=== PATIENT | male | born 1955 | race Caucasian/White ===

== ENCOUNTER → 2017-08-13 11:12 | Outpatient (POV) | payer OTHER, SELFPAY | PROVIDERS: PCP Family Medicine; Visit Provider Dentist | DX: Z00.00 Encounter for general adult medical examination without abnormal findings (principal) ==

== ENCOUNTER → 2017-09-10 11:10 | Outpatient (POV) | payer OTHER, SELFPAY | PROVIDERS: PCP Internal Medicine Adolescent Medicine; Visit Provider Dentist | DX: Z00.00 Encounter for general adult medical examination without abnormal findings (principal) ==

== ENCOUNTER → 2018-01-28 16:17 | Outpatient (CLI) | payer OTHER, SELFPAY ==
--- NOTE | 2018-01-28 16:20 | XR_ITS ---
XR ankle RT min 3V HISTORY: ITS.REASON: pain ORDERING PHYSICIAN: Veronica Abdul DPM PATIENT AGE: 62 years Comparison: None FINDINGS: There are minimal hypertrophic changes at the tip of the lateral malleolus. No fracture or dislocation. There is slight decrease in the joint space anteriorly with minimal spurring of the distal tibia. The talar dome has an unremarkable appearance. IMPRESSION: Minimal osteoarthritic changes of the ankle joint
--- NOTE | 2018-01-28 16:20 | XR_ITS ---
XR ankle LT min 3V HISTORY: ITS.REASON: pain ORDERING PHYSICIAN: Veronica Abdul DPM PATIENT AGE: 62 years Comparison: None FINDINGS: There are no previous exams available for comparison. There has been prior ankle replacement with metallic prosthetic component at the distal tibia and along the talar dome. There are prominent hypertrophic changes at both the medial and lateral malleoli region with mild hypertrophic change along the age aspect of the talus and the posterior aspect of the talus. Osteoarthritic changes are present involving the subtalar joint anteriorly. Hypertrophic changes involve the posterior aspect of the talus with osteoarthritic changes of the posterior aspect of the posterior subtalar joint. IMPRESSION: Status post ankle replacement with bony hypertrophic change and osteoarthritic changes of the subtalar joint
--- NOTE | 2018-01-28 16:20 | XR_ITS ---
XR foot wt bearing RT 3V HISTORY: ITS.REASON: pain ORDERING PHYSICIAN: Veronica Abdul DPM PATIENT AGE: 62 years COMPARISON: None FINDINGS: There is minimal hallux valgus measuring 20 degrees with minimal hypertrophic change of the distal aspect of the first metatarsal. No fracture or dislocation. No other significant anomalies are evident. IMPRESSION: Mild hallux valgus
--- NOTE | 2018-01-28 16:20 | XR_ITS ---
XR foot wt bearing LT 3V HISTORY: ITS.REASON: pain ORDERING PHYSICIAN: Veronica Abdul DPM PATIENT AGE: 62 years FINDINGS: There is minimal hallux nondisplaced with first metatarsophalangeal angle of 19 degrees with minimal osteoarthritic change at the first MTP joint. On the oblique view there is calcification overlying the mid aspect of the calcaneus along the plantar surface and may be due to overlying osteophyte formation. There has been previous ankle joint replacement. No lytic or blastic change. No fracture or dislocation. There are osteoarthritic changes of the anterior subtalar joint and the posterior aspect of the posterior subtalar joint with bony hypertrophy of the posterior aspect of the talus. IMPRESSION: 1. Minimal hallux valgus minimal osteoarthritic change first metatarsophalangeal joint. 2. Calcification overlying the mid and plantar aspect of the calcaneus on the oblique view possibly related to dystrophic calcification within the soft tissues from prior surgery or osteophyte formation 3. Osteoarthritis of the subtalar joint
== END ==
PROVIDERS: PCP Internal Medicine Adolescent Medicine; Visit Provider Podiatrist
DX: M79.671 Pain in right foot (principal); M79.672 Pain in left foot; M25.572 Pain in left ankle and joints of left foot; M25.571 Pain in right ankle and joints of right foot
CPT/HCPCS: 73610; 73630

== ENCOUNTER → 2018-03-18 10:22 | Outpatient (CLI) | payer OTHER, SELFPAY ==
--- NOTE | 2018-03-18 11:07 | XR_ITS ---
XR knee RT 4V HISTORY: Knee pain ITS.REASON: 4 views weightbearing ORDERING PHYSICIAN: Juan Kendall MD PATIENT AGE: 62 years COMPARISON: None FINDINGS: Mild to moderate osteoarthritic changes are present at the medial compartment with decrease in the joint space and mild sclerosis and small osteophytes. Small linear calcific density is present along the superior patella on the lateral view and could be due to an old injury versus tendon calcification. No fracture or dislocation. IMPRESSION: [id number] osteoarthritis of the medial compartment
--- NOTE | 2018-03-18 11:07 | XR_ITS ---
XR knee LT 4V HISTORY: ITS.REASON: left knee pain/ 4 views weightbearing ORDERING PHYSICIAN: Juan Kendall MD PATIENT AGE: 62 years COMPARISON: None FINDINGS: No fracture or dislocation. No lytic or blastic change. Normal mineralization. No significant arthritic changes evident. No other significant findings ununited apophysis is present at the tibial tuberosity as a normal variant. There is minimal chondrocalcinosis of the menisci IMPRESSION: No acute finding. Minimal chondrocalcinosis of the menisci
== END ==
PROVIDERS: PCP Internal Medicine Adolescent Medicine; Visit Provider Orthopaedic Surgery
DX: M25.562 Pain in left knee (principal); M25.561 Pain in right knee
CPT/HCPCS: 73564

== ENCOUNTER 2018-05-28 13:29 | Outpatient (RCR) | payer OTHER, SELFPAY | END 2018-05-28 13:30 | disposition home or self-care (01) | LOC: PT 13:29 | PROVIDERS: Visit Provider Orthopaedic Surgery | DX: M17.11 Unilateral primary osteoarthritis, right knee (principal) ==

== ENCOUNTER → 2018-06-29 15:17 | Outpatient (POV) | payer OTHER, SELFPAY | PROVIDERS: Visit Provider Dermatology | DX: Z00.00 Encounter for general adult medical examination without abnormal findings (principal) ==

== ENCOUNTER → 2019-05-11 14:36 | Outpatient (CLI) | payer OTHER, SELFPAY ==
[2019-05-11 14:40] LABS: Microscopic, Urine URINE MICROSCOPIC (MICROSCOPIC)
--- NOTE | 2019-05-11 15:05 | ECG_ITS ---
APPROVED REPORT Exam: Resting ECG HR:54 bpm ECG Measurements Heart Rate 54 AXES TN 246 P 0 QRSd 96 QRS 30 QT 398 T 42 QTc 377 <Conclusion> Sinus bradycardia with 1st degree AV block Otherwise normal ECG Electronically signed by : Zaire Abernathy, 05/12/2019 08:50:04
[2019-05-11 15:06] LABS: Basophils # 0.1 K/mm3 (0-0.2); Basophils % 0.6 % (0.1-2.0); Eosinophils # 0.2 K/mm3 (0.0-0.4); Eosinophils % 2.5 % (0.1-12.0); Hematocrit 45.5 % (42.0-52.0); Hemoglobin 14.5 g/dL (14.1-18.0); Lymphocytes # 2.2 K/mm3 (0.7-4.5); Lymphocytes % 26.9 % (10-50); Mean Corpuscular HGB Conc 31.9 g/dL (31.8-35.4); Mean Corpuscular Hemoglobin 30.2 pg (27.0-31.2); Mean Corpuscular Volume 94.6 fl (80-94); Mean Platelet Volume 8.1 fl (7.4-10.4); Monocytes # 0.4 K/mm3 (0.1-1.0); Monocytes % 5.4 % (1.7-9.3); Neutrophils # 5.2 K/mm3 (1.8-7.8); Neutrophils % 64.5 % (37.0-80.0); Platelet Count 225 K/mm3 (142-424); Red Blood Count 4.81 M/mm3 (4.60-6.20)
--- NOTE | 2019-05-11 15:08 | XR_ITS ---
PROCEDURE: XR CHEST 2V CLINICAL HISTORY: HTN , PREOP COMPARISON: CXR CHEST(2 VIEWS-NOT PORTABLE) from 05/25/2013 FINDINGS: The cardiomediastinal silhouette and pulmonary vascularity are within normal limits. There is hyperinflation with attenuation of the peripheral pulmonary vessels suggesting small airway disease/COPD. No lobar consolidation or collapse. No acute bony abnormalities. Postsurgical changes upper lumbar spine. IMPRESSION: Hyperinflation suggesting small airway disease/COPD. No change with no acute finding Dictated by: Petr Sarkar MD 05/11/2019 15:38 Electronically signed by Petr Sarkar MD in [place] 05/11/2019 15:38
[2019-05-11 15:35] LABS: Activated Partial Thrombo Time 27.6 seconds (23.6-34.0); Prothrombin Time 10.4 seconds (9.4-11.8)
[2019-05-11 16:02] LABS: Appearance,Urine CLEAR (Clear); Bilirubin,Urine Negative (Negative); Blood, Urine TRACE-L (Negative); Color,Urine YELLOW (Yellow); Glucose,Urine (UA) Negative (Negative); Ketones,Urine Negative (Negative); Leukocyte Esterase,Urine Negative (Negative); Nitrate,Urine Negative (Negative); Protein,Urine Negative (Negative); Urobilinogen,Urine 0.2 EU/dl (0.2)
[2019-05-11 16:37] LABS: Hemoglobin A1C 5.3 % (0.0-7.0)
[2019-05-11 17:05] LABS: Bacteria,Urine Trace /lpf; RBC,Urine Occasional #/hpf (0-3)
[2019-05-11 18:47] LABS: Anion Gap 11.9 mEq/L (5-15); Blood Urea Nitrogen 18 mg/dL (7-18); Calcium 9.4 mg/dL (8.5-10.1); Carbon Dioxide 30 mmol/L (21.0-32.0); Chloride 102 mmol/L (98-107); Estimated Glomerular Filt Rate 61 ml/min (>60); GFR (African American) 74 ML/MIN (>60); Glucose 87 mg/dL (74-106); Potassium 3.9 mmoL/L (3.5-5.1); Sodium 140 mmol/L (136-145)
== END ==
PROVIDERS: Visit Provider Orthopaedic Surgery
DX: Z01.818 Encounter for other preprocedural examination (principal)
CPT/HCPCS: 36415; 71046; 80048; 81001; 83036; 85025; 85610; 85730; 93005

== ENCOUNTER → 2019-07-05 10:21 | Outpatient (POV) | payer OTHER, SELFPAY | PROVIDERS: Visit Provider Dermatology | DX: Z00.00 Encounter for general adult medical examination without abnormal findings (principal) ==

== ENCOUNTER 2019-07-15 14:30 | Outpatient (RCR) | payer OTHER, SELFPAY | END 2019-07-15 14:35 | disposition home or self-care (01) | LOC: PT 14:30 | PROVIDERS: Visit Provider Orthopaedic Surgery | DX: M25.561 Pain in right knee (principal); Z96.651 Presence of right artificial knee joint | CPT/HCPCS: 97010; 97014; 97110; 97163; G0283 ==

== ENCOUNTER → 2020-04-10 11:06 | Outpatient (POV) | payer MEDICARE, OTHER, SELFPAY | PROVIDERS: Visit Provider Dermatology | DX: Z00.00 Encounter for general adult medical examination without abnormal findings (principal) ==

== ENCOUNTER → 2020-09-18 11:09 | Outpatient (POV) | payer MEDICARE, OTHER, SELFPAY | PROVIDERS: Visit Provider Dermatology | DX: Z00.00 Encounter for general adult medical examination without abnormal findings (principal) ==

== ENCOUNTER → 2020-10-29 14:09 | Outpatient (POV) | payer MEDICARE, OTHER, SELFPAY ==
[2020-10-29 14:15] VITALS: BP 126/87; PULSE 70; RESP 20; O2SAT 96; BMI 23.2
--- NOTE | 2020-10-29 14:15 | HMH.PMCON ---
Assessment and Plan (1) Degenerative joint disease (DJD) of lumbar spine Status: Acute Category: Medical Code(s): M47.816 - Spondylosis without myelopathy or radiculopathy, lumbar region (2) Lumbar radiculopathy Status: Acute Category: Medical Code(s): M54.16 - Radiculopathy, lumbar region (3) Postlaminectomy syndrome Status: Acute Category: Medical Code(s): M96.1 - Postlaminectomy syndrome, not elsewhere classified (4) Back pain Status: Acute Category: Medical Code(s): M54.9 - Dorsalgia, unspecified - Assessment and plan all Dx Assessment and Plan for all problems:: We will give the patient prednisone 20 mg 1 p.o. twice daily for 5 days we will follow up with him after this reassess his symptoms at that time he has been instructed to call the office if he has any issues prior to his next appointment. Dr. Malik has reviewed this note and agrees with this plan of care. This note was dictated using voice recognition software and may contain errors or omissions HPI - Data of Consult Consult date: 10/29/20 Requesting Physician: Yahaira Ching APRN Primary Care Provider: Referral Provider, MD - Consult Narrative Reason for consult: Back pain History of present illness: Mr. Waddell is a 65 year old male who presents today for consultation regards his low back pain. Patient had surgery back in the early with a 3 level fusion. He is done well until recently. He was doing yard work outside and had a recurrence of pain and weakness in his right leg. Patient was to be prescribed steroids from his neurosurgeon however they did not come due to pharmacy issues. Patient is interested in conservative measures of care at this time. We discussed starting with an oral dose of steroids. He is agreeable. CC: Yahaira Ching APRN [facility] History I have reviewed the patient's past medical history: Yes Medical History: Reports:: Asthma, Hypertension *Have you ever received a pneumonia vaccine?: No *Have you received a flu vaccine this season?: Yes Other Medical History: Reports: Arthritis, Hypothyroidism, Sinus Problems Amputation: No Fractures: Yes - *Social History Smoking Status: Never smoker Alcohol Intake: current Alcohol Intake Frequency:: holidays/special occasions only *Occupational Status:: employed *Travel in the last 8 weeks: None Family Hx:: Coronary Artery Disease Review of Systems - Review of Systems ROS General: no recent weight change, no fever, no sleep disturbances Respiratory: no cough, no shortness of air, no recurring pulmonary infections Cardiovascular/Peripheral Vascular: No chest pain, No palpitations, no edema, no shortness of breath. Gastrointestinal: no new onset incontinence, normal bowel movements reported Genitourinary: no new onset incontinence Musculoskeletal: Back pain, leg pain Psychiatric: normal mood/ affect Neurological: [denies new onset weakness in extremities], [denies new onset balance issues] Meds Home Medications Medication Instructions Recorded Confirmed Type albuterol sulfate 90 mcg/actuation INHALATION 30 Days #8 01/27/18 10/07/18 History aerosol inhaler aspirin 81 mg tablet,delayed 81 mg PO ONCE 01/27/18 10/07/18 History release diclofenac sodium 1 % topical gel 4 g TOPICAL QID #30 g 01/27/18 10/07/18 Rx fluticasone 250 mcg-salmeterol 50 INHALATION 90 Days #180 01/27/18 10/07/18 History mcg/dose blistr powdr for inhalation levothyroxine 25 mcg tablet PO 90 Days #90 01/27/18 10/07/18 History montelukast 10 mg tablet PO 90 Days #90 01/27/18 10/07/18 History ramipril 2.5 mg capsule PO 90 Days #90 01/27/18 10/07/18 History sertraline 100 mg tablet PO 90 Days #90 01/27/18 10/07/18 History Allergies Allergy/AdvReac Type Severity Reaction Status Date / Time No Known Allergies Allergy Verified 10/29/20 14:15 Objective Narrative: Physical Exam General: Alert and oriented x3, no acute distress, p
== END ==
PROVIDERS: Visit Provider Clinical Nurse Specialist Family Health
DX: M47.896 Other spondylosis, lumbar region (principal); M54.16 Radiculopathy, lumbar region; M96.1 Postlaminectomy syndrome, not elsewhere classified
CPT/HCPCS: 99202; G0463

== ENCOUNTER → 2020-11-16 11:05 | Outpatient (CLI) | payer MEDICARE, OTHER, SELFPAY ==
--- NOTE | 2020-11-16 11:11 | MR_ITS ---
PROCEDURE: MR LUMBAR SPINE WO CON CLINICAL INDICATION: LBP Pt c/o lbp with bilateral hip pain. No recent trauma or injury. Pt had a 3 level lumbar fusion x17yrs ago. COMPARISON: None TECHNIQUE: Standard multiplanar multiecho sequences are performed without contrast. 3-D MIP and myelographic images are also rendered and reviewed FINDINGS: The spinal cord ends the L2-L3 level. Postsurgical changes are present as described below. There is mild lumbar scoliosis convex right. T11-T12: Mild degenerative disc disease. T12-L1: Mild degenerative disc disease with minimal bulging disc and a small left paracentral disc protrusion without impingement with mild left-sided foraminal narrowing. L1-L2: Degenerative disc disease with endplate osteophytes and bulging disc along with facet and ligamentum hypertrophy with left lateral recess narrowing and severe left-sided foraminal narrowing with impingement upon the exiting L2 nerve root. L2-L3: Bulging disc with a small to medium-sized central/right paracentral disc protrusion/herniation. There is also facet and ligamentum hypertrophy at this level. There is severe right lateral recess narrowing and moderate to severe left lateral recess narrowing with canal stenosis with moderate bilateral foraminal narrowing. There is bilateral impingement upon the L3 nerve roots right greater than left. Prior fusion at L3-L4, L4-5, and L5-S1 with inter pedicular screws at these levels. There is significant artifact from the hardware obscuring anatomic detail at these levels. There is 6 mm anterolisthesis of L4 on L5 with mild right-sided foraminal narrowing.. No obvious canal stenosis at these levels. The spinal canal is widely patent. IMPRESSION: 1. T12-L1: Mild degenerative disc disease with minimal bulging disc and a small left paracentral disc protrusion without impingement with mild left-sided foraminal narrowing. 2. L1-L2: Degenerative disc disease with endplate osteophytes and bulging disc along with facet and ligamentum hypertrophy with left lateral recess narrowing and severe left-sided foraminal narrowing with impingement upon the exiting L2 nerve root. 3. L2-L3: Bulging disc with a small to medium-sized central/right paracentral disc protrusion/herniation. There is also facet and ligamentum hypertrophy at this level. There is severe right lateral recess narrowing and moderate to severe left lateral recess narrowing with canal stenosis with moderate bilateral foraminal narrowing. There is bilateral impingement upon the L3 nerve roots right greater than left. 4. Prior fusion at L3-L4, L4-5, and L5-S1. There is 6 mm anterolisthesis of L4 on L5. Dictated by: Petr Sarkar MD 11/19/2020 07:31 Petr Srakar MD in [place] 11/19/2020 07:31
== END ==
PROVIDERS: PCP Internal Medicine Adolescent Medicine; Visit Provider Orthopaedic Surgery Orthopaedic Surgery of the Spine
DX: M48.062 Spinal stenosis, lumbar region with neurogenic claudication (principal); M43.26 Fusion of spine, lumbar region
CPT/HCPCS: 72148; 76376

== ENCOUNTER → 2021-01-16 13:02 | Outpatient (POV) | payer MEDICARE, OTHER, SELFPAY | DX: Z00.00 Encounter for general adult medical examination without abnormal findings (principal) ==

== ENCOUNTER → 2021-02-06 14:30 | Outpatient (POV) | payer MEDICARE, OTHER, SELFPAY | DX: Z00.00 Encounter for general adult medical examination without abnormal findings (principal) ==

== ENCOUNTER → 2021-02-20 08:09 | Outpatient (CLI) | payer MEDICARE, OTHER, SELFPAY ==
[2021-02-20 10:34] LABS: T4 (Thyroxine) 11.4 ug/dl (5.53-11.0)
[2021-02-20 10:47] LABS: Prostate Specific Ag Screen 0.9 ng/ml (0.0-4.0); Thyroid Stimulating Hormone 3.94 uIU/mL (0.465-4.68)
[2021-02-21 10:37] LABS: Triiodothyronine (T3) Total 113 ng/dL (71-180)
[2021-02-24 23:27] LABS: Testosterone, Total, LC/MS 515.8 ng/dL (264.0-916.0)
== END ==
PROVIDERS: Visit Provider Urology
DX: R53.83 Other fatigue (principal); E29.1 Testicular hypofunction; Z12.5 Encounter for screening for malignant neoplasm of prostate
CPT/HCPCS: 36415; 84402; 84403; 84436; 84443; 84480; G0103

== ENCOUNTER → 2021-04-19 08:12 | Outpatient (POV) | payer MEDICARE, OTHER, SELFPAY ==
[2021-04-19 08:25] VITALS: BP 145/87; PULSE 60; RESP 18; TEMP 37.1; O2SAT 99; BMI 23.1
--- NOTE | 2021-04-19 09:46 | P.CONS_ITS ---
[facility] Pain Management SOAP Note Subjective:: Patient is a pleasant 66-year-old white male who we are treating for low back pain. He has had a previous fusion of L3-L4, 4 5 and L5-S1. He did see his surgeon who recommended a repeat fusion. He has not had an epidural steroid injection. We have talked about trying epidural steroid injections prior to a repeat surgery. He is scheduled to see a neurosurgeon in [place] for second opinion. Objective:: Alert and oriented x3 no acute distress. Patient does have an antalgic gait. Motor strength of the lower extremities is 5/5. There is no gross sensory deficit. Assessment:: Degenerative disc disease of lumbar spine with lumbar radiculopathy symptoms and postlaminectomy syndrome lumbar spine Plan:: We will follow-up with him in 2 weeks and plan on lumbar epidural steroid injection at L2-L3. He has had a previous fusion from L3-S1. Worst level is above the fusion at L2-L3. [facility] History Medical History: Reports:: Asthma, Hypertension Denies:: Cancer, Diabetes Mellitus Type 1, Diabetes Mellitus Type 2, Internal Pacemaker, MRSA *Have you ever received a pneumonia vaccine?: Yes *Have you received a flu vaccine this season?: Yes Other Medical History: Reports: Arthritis, Hypothyroidism, Sinus Problems Laterality Cases: Bilateral: Arthroscopy Knee Other Surgeries: Yes: No Previous Surgery, Colonoscopy. No: Pacemaker Amputation: No Fractures: Yes - *Social History Smoking Status: Never smoker Alcohol Intake: current Alcohol Intake Frequency:: 0-2 drinks per day Substance Use Type: denies use *Occupational Status:: employed Housing: house Household Members: spouse *Travel in the last 8 weeks: None Family Hx:: Unable to obtain
== END ==
PROVIDERS: PCP Internal Medicine Adolescent Medicine; Visit Provider Anesthesiology
DX: M51.16 Intervertebral disc disorders with radiculopathy, lumbar region (principal); M96.1 Postlaminectomy syndrome, not elsewhere classified
CPT/HCPCS: 99212; G0463

== ENCOUNTER 2021-04-26 09:46 | Day surgery (SDC) | payer MEDICARE, OTHER, SELFPAY ==
[2021-04-26 09:56] VITALS: BP 120/60; PULSE 68; RESP 18; TEMP 36.6; O2SAT 98; BMI 23.1
[2021-04-26 10:16] VITALS: BP 121/75; PULSE 62; RESP 18; O2SAT 98
[2021-04-26 10:24] VITALS: BP 121/77; PULSE 63; RESP 18; O2SAT 99
--- NOTE | 2021-04-26 10:38 | HMH.PMPROC ---
- Procedure Date: 04/26/21 Time: 10:38 Anesthesiologist:: Matthew Malik MD Complications:: None Pre-procedure Diagnosis:: Postlaminectomy syndrome lumbar spine with lumbar radiculopathy symptoms Post-procedure Diagnosis:: Same Indications for Procedure:: Patient is a pleasant 66-year-old white male who we are treating for low back pain with lumbar radiculopathy symptoms. He has had a previous fusion of L3-L4, L4-L5 and L5-S1. We will do a lumbar epidural steroid injection at L2-L3 today to see if this gives him relief as he does have issues above his fusion. Procedure Details:: Informed consent was obtained and the risk and benefits of the procedure was explained to the patient. The patient was taken to the procedure room. The patient was placed prone on the procedure table. The patient was prepped and draped in sterile fashion. C-arm fluoroscopy was used to view the lumbar spine. Skin and subcutaneous tissues were anesthetized using lidocaine. I placed an 18-gauge epidural needle and advanced into the to L2-L3 interspace using fluoroscopic guidance and [id number] to air. After confirmation of needle placement in the epidural space with dye I injected 2 mL of lidocaine 1.5% with Depo-Medrol 80 mg. Patient tolerated the procedure well with no complications. Plan and Disposition:: We will follow-up with him in 2 weeks. Will reevaluate his symptoms at that time.
[2021-04-26 12:50] VITALS: BP 117/71; PULSE 61; RESP 18; O2SAT 97
== END 2021-04-26 10:40 | disposition home or self-care (01) ==
LOC: SC.PAINP 09:47
PROVIDERS: PCP Internal Medicine Adolescent Medicine; Visit Provider Anesthesiology
DX: M96.1 Postlaminectomy syndrome, not elsewhere classified (principal); M54.16 Radiculopathy, lumbar region; I10 Essential (primary) hypertension; J45.909 Unspecified asthma, uncomplicated; M19.90 Unspecified osteoarthritis, unspecified site; E03.9 Hypothyroidism, unspecified; F41.9 Anxiety disorder, unspecified; F32.9 Major depressive disorder, single episode, unspecified; Z79.82 Long term (current) use of aspirin; Z79.899 Other long term (current) drug therapy
CPT/HCPCS: 62323; J1040; Q9966

== ENCOUNTER → 2021-05-15 07:29 | Outpatient (CLI) | payer MEDICARE, OTHER, SELFPAY ==
--- NOTE | 2021-05-15 07:31 | CT_ITS ---
PROCEDURE: CT LUMBAR SPINE WO CON CLINICAL HISTORY: LBP,GEMA HIP PAIN Low back pain with bilateral hip pain, history of lumbar surgery COMPARISON: MR MR LUMBAR SPINE WO CON from 11/16/2020 TECHNIQUE: Axial images obtained with sagittal and coronal reformats. All CT scans at the facility use one or more dose reduction, viz: automated exposure control, ma/kV adjustment per patient size (including targeted exams where dose is matched to indication, i.e. head), or iterative reconstruction technique. FINDINGS: The patient is status post L3-S1 posterior spinal fusion with interbody cage at L4-5. There is adequate arthrodesis at the level of the construct. There is adjacent level disease at L2-3 with vacuum disc phenomenon. There is severe disease at L1-2 with vacuum disc phenomenon cortical endplate changes and bone on bone phenomenon. At L1-2, there is diffuse disc bulge, ligamentum flavum hypertrophy producing moderate canal stenosis and moderate bilateral neural foraminal stenosis. At L2-3, there is diffuse disc bulge, ligamentum flavum hypertrophy, and severe facet arthropathy producing moderate canal stenosis and severe bilateral neuroforaminal stenosis. The canal and neural foramina at the levels of the construct are obscured by metal artifact. IMPRESSION: 1. L3-S1 posterior spinal fusion with interbody cage at L4-5 with adequate arthrodesis. 2. Adjacent level disease at L2-3 with vacuum disc phenomenon, diffuse disc bulge, ligamentum flavum hypertrophy, and severe facet arthropathy producing moderate canal stenosis and severe bilateral neuroforaminal stenosis. 3. L1-2 diffuse disc bulge, ligamentum flavum hypertrophy, vacuum disc phenomenon with [id number] producing moderate canal stenosis and moderate bilateral neuroforaminal stenosis. Dictated by: Grace Gan MD 05/15/2021 08:27 Grace Gan MD in [place] 05/15/2021 08:27
--- NOTE | 2021-05-15 07:37 | XR_ITS ---
PROCEDURE: XR LUMBAR SPINE BENDING ONLY CLINICAL INDICATION: LBP,GEMA HIP PAIN COMPARISON: No exams were available for comparison FINDINGS: Flexion and extension views show no movement of the lower lumbar spine at the fusion levels L3 through S1. Degenerate changes are seen at at the upper lumbar spine with disc space narrowing and endplate sclerosis at L1-2 level and with anterior osteophytic spurring at this level. There is no subluxation on the flexion and extension views though there is slightly decreased range of motion. IMPRESSION: Postsurgical fusion lower lumbar spine prominent degenerate disc disease L1-2, no subluxation seen on flexion and extension views Dictated by: Dr. Tyler Holland MD 05/15/2021 08:19 Dr. Tyler Holland MD in [place] 05/15/2021 08:19
--- NOTE | 2021-05-15 07:37 | XR_ITS ---
PROCEDURE: XR SCOLIOSIS SURVEY CLINICAL INDICATION: LBP,GEMA HIP PAIN COMPARISON: MR MR LUMBAR SPINE WO CON from 11/16/2020 FINDINGS: There is mild diffuse levo scoliotic curvature of the thoracic spine between the superior endplate of T2 and the superior endplate of T12 measuring 8 degrees. Mild multilevel degenerate changes are noted. Mild dextroscoliotic curvature between the superior endplate of T12 and body of L5 measuring 21 degrees. There is prominent disc space narrowing at the L1-2 level with osteophytic spurring. There are metallic brackets and pedicle screws fusing L3, L4 L5 and S1. The pedicle screw on the right side at S1 is fracture proximally. There is a metallic spacer at the L4-5 disc space. The SI joints are normal. IMPRESSION: Serpentine scoliotic curvature thoracic lumbar spine along with degenerate changes thoracic and lumbar spine and postsurgical changes lower lumbar spine Dictated by: Dr. Tyler Holland MD 05/15/2021 08:17 Dr. Tyler Holland MD in [place] 05/15/2021 08:17
== END ==
PROVIDERS: PCP Internal Medicine Adolescent Medicine; Visit Provider Internal Medicine Adolescent Medicine
DX: M54.50 Low back pain, unspecified (principal); M54.16 Radiculopathy, lumbar region
CPT/HCPCS: 72081; 72120; 72131

== ENCOUNTER → 2021-05-16 14:14 | Outpatient (POV) | payer MEDICARE, OTHER, SELFPAY ==
[2021-05-16 14:28] VITALS: BP 122/59; PULSE 68; RESP 18; O2SAT 98; BMI 23.1
--- NOTE | 2021-05-16 15:20 | HMH.PAINSOAP ---
[facility] Pain Management SOAP Note Subjective:: Patient is a 66-year-old white male who presents today for follow-up. Patient recently underwent a lumbar epidural steroid injection at L2-L3 area with Dr. Malik. He does have a history of a previous spinal fusion at L3-L4 L4-L5 and L5-S1. Patient reports that his pain is a 2 out of 10 today. He has decreased pain with sitting and lying down. Patient's pain is made worse with movement such as mowing. Standing and walking also worsen the patient's pain. He does have occasional pain when sleeping on his left side. he has pain in his low back area and hip with paresthesia in the past, however, he does not report paresthesia at this time. The patient says that he is very active which is given him some relief. He says cycling does help with his pain. He has had more than 17 years, nearly 18 years of relief of pain with his initial spinal fusion. Patient reports his fusion was performed at [facility] in [facility]. He did follow-up with his surgeon who has recommended he undergo a repeat fusion above the L3-L4 area. Patient is unsure that he wants to proceed with the fusion. He feels very confident in his surgeon's performance, but would like a second opinion. He does have a neurosurgical evaluation scheduled at [facility] in [facility]. The patient reports that he did get some relief with the injection to his low back at the L2-L3 area. He says that the pain has improved to his legs since the injection. Patient is interested in proceeding with a repeat injection while awaiting his neurosurgical evaluation. He denies any saddle anesthesia or any changes in bowel or bladder habit. He does report improvement with stretching. Review of Systems General: No recent weight changes, no fever, no sleep disturbances Respiratory: No cough, no shortness of air, no recurring pulmonary infections Cardiovascular/peripheral vascular: No chest pain, no palpitations, no edema, no shortness of breath Gastrointestinal: No new onset incontinence, normal bowel movements reported Genitourinary: No new onset incontinence Musculoskeletal: Low back pain worsened with standing and walking, improved with sitting lying on right side and with stretching Psychiatric: [Normal mood/affect] Neurological: [Denies weakness in extremities], [denies balance issues] Objective:: Physical exam General: Alert and oriented x3, no acute distress, pleasant and cooperative Lungs: Respirations even and unlabored, symmetrical chest expansion Skin: P/W/D Musculoskeletal: normal gait noted Neurological: Speech clear, no gross sensory deficit Assessment:: Degenerative disc disease lumbar spine with lumbar radiculopathy symptoms Plan:: The patient does feel he got some improvement with his lumbar epidural steroid injection at L2-L3 area. He is awaiting a neurosurgical evaluation at [facility] in [facility]. He is also being seen at [facility] in [facility]. If the patient does get relief with his second injection, he may be a candidate for a third injection while awaiting his neurosurgical evaluation. We will schedule the patient for a lumbar epidural steroid injection at L2-L3 area. He is not on anticoagulation therapy. The patient is not diabetic. He will continue with home stretching. We will see him back in the clinic after his injection for further evaluation. Patient will follow up with Dr. Malik. Possible side effects of corticosteroids have been discussed with the patient. Risks and benefits of the procedure have been explained to the patient. Patient would like to proceed with the procedure. Patient has been instructed to contact the clinic with any concerns before the next appointment. Dr. Malik has reviewed this note and agrees with this plan of care. This note was dictated using voice recognition software and make contain errors or omissions. [facility] History I have reviewed the
== END ==
PROVIDERS: Visit Provider Clinical Nurse Specialist Family Health
DX: M51.16 Intervertebral disc disorders with radiculopathy, lumbar region (principal)
CPT/HCPCS: 99212; G0463

== ENCOUNTER 2021-05-17 14:30 | Day surgery (SDC) | payer MEDICARE, OTHER, SELFPAY ==
[2021-05-17 14:34] VITALS: BP 110/65; PULSE 65; RESP 18; TEMP 36.4; O2SAT 99; BMI 23.7
[2021-05-17 14:58] VITALS: BP 117/62; PULSE 67; RESP 18; O2SAT 99
--- NOTE | 2021-05-17 14:58 | HMH.PMPROC ---
- Procedure Date: 05/17/21 Time: 14:58 Anesthesiologist:: Matthew Malik MD Complications:: None Pre-procedure Diagnosis:: Postlaminectomy syndrome lumbar spine with lumbar radiculopathy symptoms Post-procedure Diagnosis:: Same Indications for Procedure:: Patient is a pleasant 66-year-old white male who we are treating for postlaminectomy syndrome lumbar spine with lumbar radiculopathy symptoms. He did get some benefit from his last lumbar epidural steroid injection in the L2-L3 region. We will do repeat lumbar epidural steroid injection under fluoroscopy today. Procedure Details:: Informed consent was obtained and the risk and benefits of the procedure was explained to the patient. The patient was taken to the procedure room. The patient was placed prone on the procedure table. The patient was prepped and draped in sterile fashion. C-arm fluoroscopy was used to view the lumbar spine. Skin and subcutaneous tissues were anesthetized using lidocaine. I placed an 18-gauge epidural needle and advanced into the L2-L3 interspace using fluoroscopic guidance and [id number] to air. After confirmation of needle placement in the epidural space with dye I injected 2 mL of lidocaine 1.5% with Depo-Medrol 80 mg. Patient tolerated the procedure well with no complications. Plan and Disposition:: We will follow-up with him in 2 weeks. Will reevaluate his symptoms at that time. This will be after his neurosurgical appointment in [place].
[2021-05-17 15:00] VITALS: BP 105/68; PULSE 65; RESP 18; O2SAT 98
[2021-05-17 15:06] VITALS: BP 110/65; PULSE 65; RESP 20; O2SAT 99
== END 2021-05-17 15:07 | disposition home or self-care (01) ==
LOC: SC.PAINP 14:30
PROVIDERS: PCP Internal Medicine Adolescent Medicine; Visit Provider Anesthesiology
DX: M96.1 Postlaminectomy syndrome, not elsewhere classified (principal); M54.16 Radiculopathy, lumbar region; E03.9 Hypothyroidism, unspecified; I10 Essential (primary) hypertension; J45.909 Unspecified asthma, uncomplicated; M19.90 Unspecified osteoarthritis, unspecified site
CPT/HCPCS: 62323; Q9966

== ENCOUNTER → 2021-06-06 10:12 | Outpatient (POV) | payer MEDICARE, OTHER, SELFPAY ==
[2021-06-06 10:26] VITALS: BP 122/66; PULSE 76; RESP 18; O2SAT 98; BMI 23.1
--- NOTE | 2021-06-06 12:24 | HMH.PAINSOAP ---
[facility] Pain Management SOAP Note Subjective:: Patient is a 66-year-old white male who presents today for follow-up. Patient did undergo lumbar epidural steroid injection on 05/17/2021. He reports to have gotten some relief with the injection. He says he did feel better until recently with return of pain. The pain has not changed. He is with a history of postlaminectomy syndrome lumbar spine. He does have pain in his low back area with radiation into lower extremities. He has seen an orthopedic surgeon as well as a neurosurgeon who has advised him that surgery is likely his next option. He is scheduled to see both providers in June. He will discuss a further plan of care with the surgeons to determine his best options at this time. The neurosurgeon has suggested a 4 level fusion. He would like to discuss this with his orthopedic surgeon before proceeding. The patient has been taking naproxen as needed [id number] with minimal relief. He is very active, but is having limited mobility due to pain. Mowing grass seems to worsen his pain. The patient does rate his pain a 4 out of 10 today. He is not having any numbness or tingling at this time to his lower extremities. Review of Systems General: No recent weight changes, no fever, no sleep disturbances Gastrointestinal: No new onset incontinence, normal bowel movements reported Genitourinary: No new onset incontinence Musculoskeletal: Low back pain with radiation into bilateral lower extremities Psychiatric: [Normal mood/affect] Neurological: [Denies weakness in extremities], [denies balance issues] Objective:: Physical exam General: Alert and oriented x3, no acute distress, pleasant and cooperative Lungs: Respirations even and unlabored, symmetrical chest expansion Musculoskeletal: Flexion and extension of lumbar [spine] somewhat guarded secondary to pain, [antalgic gait noted] Neurological: Speech clear, no gross sensory deficit Plan:: We will start the patient on [place] 5 mg 1 tablet p.o. twice daily as needed for moderate pain until he is able to see his neurosurgeon. We will plan to follow-up with the patient afterwards for further evaluation of symptoms. We will schedule him with Dr. Malik in July. Risks and benefits of the medication have been explained in detail to the patient. If side effects do present with the medication, patient has been advised to stop the medication immediately and call the clinic. The patient has been advised to consult with his/her primary care provider and pharmacist regarding drug-drug interaction of medications currently prescribed. Patient has been instructed to contact the clinic with any concerns before the next appointment. Dr. Malik has reviewed this note and agrees with this plan of care. This note was dictated using voice recognition software and make contain errors or omissions. [facility] History I have reviewed the patient's past medical history: Yes Medical History: Reports:: Asthma, Hypertension Denies:: Cancer, Diabetes Mellitus Type 1, Diabetes Mellitus Type 2, Internal Pacemaker, MRSA, Seizures *Have you ever received a pneumonia vaccine?: Yes *Have you received a flu vaccine this season?: Yes Other Medical History: Reports: Arthritis, Hypothyroidism, Sinus Problems, Thyroid Disease Laterality Cases: Bilateral: Arthroscopy Knee Other Surgeries: Yes: No Previous Surgery, Colonoscopy. No: Pacemaker Amputation: No Fractures: Yes - *Social History Smoking Status: Never smoker Alcohol Intake: never Alcohol Intake Frequency:: 0-2 drinks per day Substance Use Type: denies use *Occupational Status:: employed Housing: house Household Members: spouse *Travel in the last 8 weeks: None Family Hx:: Unable to obtain
== END ==
PROVIDERS: Visit Provider Clinical Nurse Specialist Family Health
DX: M51.16 Intervertebral disc disorders with radiculopathy, lumbar region (principal)
CPT/HCPCS: 99212; G0463

== ENCOUNTER → 2021-08-28 09:21 | Outpatient (CLI) | payer MEDICARE, OTHER, SELFPAY ==
[2021-08-29 09:40] LABS: Covid-19 Nasal PCR Sendout Lex NOT DETECTED
== END ==
PROVIDERS: PCP Internal Medicine Adolescent Medicine; Visit Provider Nurse Practitioner
DX: Z20.822 Contact with and (suspected) exposure to COVID-19 (principal)
CPT/HCPCS: C9803; U0004; U0005

== ENCOUNTER → 2021-12-18 11:24 | Outpatient (CLI) | payer MEDICARE, OTHER, SELFPAY | PROVIDERS: PCP Internal Medicine Adolescent Medicine; Visit Provider Nurse Practitioner | DX: U07.1 COVID-19 (principal) | CPT/HCPCS: C9803; U0003; U0005 ==

== ENCOUNTER → 2022-01-30 07:44 | Outpatient (CLI) | payer MEDICARE, OTHER, SELFPAY ==
[2022-01-30 08:15] LABS: Basophils # 0.1 K/mm3 (0-0.2); Basophils % 1.7 % (0.1-2.0); Eosinophils # 0.2 K/mm3 (0.0-0.4); Eosinophils % 2.3 % (0.1-12.0); Hematocrit 42.9 % (42.0-52.0); Hemoglobin 13.8 g/dL (14.1-18.0); Lymphocytes # 2.6 K/mm3 (0.7-4.5); Lymphocytes % 31.6 % (10-50); Mean Corpuscular HGB Conc 32.3 g/dL (31.8-35.4); Mean Corpuscular Hemoglobin 30.4 pg (27.0-31.2); Mean Corpuscular Volume 94.3 fl (80-94); Mean Platelet Volume 8.7 fl (7.4-10.4); Monocytes # 0.6 K/mm3 (0.1-1.0); Monocytes % 6.9 % (1.7-9.3); Neutrophils # 4.8 K/mm3 (1.8-7.8); Neutrophils % 57.4 % (37.0-80.0); Platelet Count 201 K/mm3 (142-424); Red Blood Count 4.54 M/mm3 (4.60-6.20); Red Cell Distribution Width 13.9 % (11.5-17.5); White Blood Count 8.3 K/mm3 (4.8-10.8)
[2022-01-30 08:34] LABS: Alanine Aminotransferase 32 U/L (12-78); Albumin/Globulin Ratio 1.4 (1.1-1.8); Alkaline Phosphatase 79 U/L (38-126); Anion Gap 9.5 mEq/L (5-15); Aspartate Amino Transferase 45 U/L (17-59); Bilirubin,Total 0.4 mg/dl (0.2-1.3); Blood Urea Nitrogen 22 mg/dl (9-20); Calcium 9.3 mg/dl (8.4-10.2); Carbon Dioxide 28 mmol/L (22.0-30.0); Chloride 104 mmol/L (98-107); Chol/HDL Ratio 3.4 (1-3.5); Cholesterol 186 mg/dl (140-200); Estimated Glomerular Filt Rate 67 ml/min (>60); GFR (African American) 81 ML/MIN (>60); Globulin 2.9 g/dL (1.3-3.2); Glucose 106 mg/dl (74-100); HDL Cholesterol 55 mg/dl (40-60); Potassium 4.5 mmoL/L (3.5-5.1); Sodium 137 mmol/L (136-145); Total Protein,Serum 6.9 g/dl (6.3-8.2); Triglycerides 83 mg/dl (30-150); VLDL Cholesterol 17 mg/dL (0-40)
[2022-01-30 08:45] LABS: Direct LDL Cholesterol 103.52 mg/dL (100-129)
[2022-01-30 08:51] LABS: Free Thyroxine Index 3.8 ug/dL (5.93-13.13); T4 (Thyroxine) 11.1 ug/dl (5.53-11.0); Triiodothryronine (T3) Uptake 34 % (23.5-40.5)
[2022-01-30 08:52] LABS: 25-OH Vitamin D, Total 71.3 ng/mL (30-100)
[2022-01-30 09:05] LABS: Thyroid Stimulating Hormone 3.08 uIU/mL (0.465-4.68)
[2022-01-30 09:24] LABS: Vitamin B12 579 pg/mL (239-931)
[2022-02-05 02:08] LABS: Testosterone, Total, LC/MS 481.9 ng/dL (264.0-916.0); Testosterone,Free 4.7 pg/mL (6.6-18.1)
== END ==
PROVIDERS: PCP Internal Medicine Adolescent Medicine; Visit Provider Internal Medicine Adolescent Medicine
DX: E03.9 Hypothyroidism, unspecified (principal); E29.1 Testicular hypofunction; G47.419 Narcolepsy without cataplexy
CPT/HCPCS: 36415; 80053; 80061; 82306; 82607; 84402; 84403; 84436; 84443; 84479; 85025

== ENCOUNTER → 2022-07-09 09:30 | Outpatient (CLI) | payer MEDICARE, OTHER, SELFPAY ==
[2022-07-09 10:30] VITALS: PULSE 68; PULSE 71
== END ==
PROVIDERS: PCP Internal Medicine Adolescent Medicine; Visit Provider Internal Medicine Pulmonary Disease
DX: R06.09 Other forms of dyspnea (principal)
CPT/HCPCS: 94060; 94618; 94640; 94727; 94729

== ENCOUNTER → 2022-07-10 14:02 | Outpatient (CLI) | payer MEDICARE, OTHER, SELFPAY | PROVIDERS: PCP Internal Medicine Adolescent Medicine; Visit Provider Internal Medicine Pulmonary Disease | DX: R06.00 Dyspnea, unspecified (principal) | CPT/HCPCS: 94070; 95070; J7674 ==

== ENCOUNTER → 2022-09-17 07:39 | Outpatient (CLI) | payer MEDICARE, OTHER, SELFPAY ==
[2022-09-17 08:20] LABS: Basophils # 0.1 K/mm3 (0-0.2); Basophils % 1.1 % (0.1-2.0); Eosinophils # 0.3 K/mm3 (0.0-0.4); Hemoglobin 15.3 g/dL (14.1-18.0); Lymphocytes # 2.2 K/mm3 (0.7-4.5); Lymphocytes % 31.6 % (10-50); Mean Corpuscular HGB Conc 31.9 g/dL (31.8-35.4); Mean Corpuscular Hemoglobin 29.6 pg (27.0-31.2); Mean Corpuscular Volume 92.7 fl (80-94); Mean Platelet Volume 8.6 fl (7.4-10.4); Monocytes # 0.5 K/mm3 (0.1-1.0); Monocytes % 7.5 % (1.7-9.3); Neutrophils # 3.9 K/mm3 (1.8-7.8); Neutrophils % 55.8 % (37.0-80.0); Platelet Count 212 K/mm3 (142-424); Red Blood Count 5.18 M/mm3 (4.60-6.20); Red Cell Distribution Width 13.3 % (11.5-17.5)
[2022-09-17 09:07] LABS: Alanine Aminotransferase 31 U/L (12-78); Albumin Level 4.3 g/dl (3.5-5.0); Albumin/Globulin Ratio 1.4 (1.1-1.8); Alkaline Phosphatase 64 U/L (38-126); Aspartate Amino Transferase 62 U/L (17-59); Bilirubin,Total 0.8 mg/dl (0.2-1.3); Blood Urea Nitrogen 20 mg/dl (9-20); Calcium 9.3 mg/dl (8.4-10.2); Carbon Dioxide 30 mmol/L (22.0-30.0); Chloride 103 mmol/L (98-107); Chol/HDL Ratio 3.8 (1-3.5); Cholesterol 202 mg/dl (140-200); Estimated Glomerular Filt Rate 55 ml/min (>60); GFR (African American) 67 ML/MIN (>60); Globulin 3.1 g/dL (1.3-3.2); Glucose 95 mg/dl (74-100); HDL Cholesterol 53 mg/dl (40-60); Sodium 137 mmol/L (136-145); Total Protein,Serum 7.4 g/dl (6.3-8.2); Triglycerides 79 mg/dl (30-150); VLDL Cholesterol 16 mg/dL (0-40)
[2022-09-17 09:18] LABS: Direct LDL Cholesterol 116.16 mg/dL (100-129)
[2022-09-23 15:29] LABS: Testosterone, Total, LC/MS 911.8 ng/dL (264.0-916.0); Testosterone,Free 10.6 pg/mL (6.6-18.1)
== END ==
PROVIDERS: PCP Internal Medicine Adolescent Medicine; Visit Provider Internal Medicine Adolescent Medicine
DX: I10 Essential (primary) hypertension (principal); E03.9 Hypothyroidism, unspecified; R53.82 Chronic fatigue, unspecified; E29.1 Testicular hypofunction; K21.9 Gastro-esophageal reflux disease without esophagitis; R19.7 Diarrhea, unspecified
CPT/HCPCS: 36415; 80053; 80061; 84402; 84403; 84443; 85025

== ENCOUNTER → 2022-09-23 14:17 | Outpatient (CLI) | payer MEDICARE, OTHER, SELFPAY ==
[2022-09-23 14:24] LABS: Adenovirus F 40/41, stool Not Detected (NotDetected); Astrovirus Not Detected (NotDetected); Campylobacter Not Detected (NotDetected); Clostridium Difficile A/B, PCR Not Detected (NotDetected); Cryptosporidium Not Detected (NotDetected); Cyclospora Cayetanesis Not Detected (NotDetected); Entamoeba histolytica Not Detected (NotDetected); Enteroaggregative E coli Not Detected (NotDetected); Enteropathogenic E coli Not Detected (NotDetected); Enterotoxigenic E coli Not Detected (NotDetected); Giardia lamblia Not Detected (NotDetected); Norovirus Not Detected (NotDetected); Plesimonas Shigalloides, PCR Not Detected (NotDetected); Rotavirus A Not Detected (NotDetected); Salmonella, PCR Not Detected (NotDetected); Sapovirus Not Detected (NotDetected); Shiga-like toxin E coli Not Detected (NotDetected); Shigella Enterovasive E coli Not Detected (NotDetected); Vibrio Cholerae Not Detected (NotDetected); Vibrio, PCR Not Detected (NotDetected); Yersinia Entercolitica, PCR Not Detected (NotDetected)
[2022-09-25 15:04] LABS: Giardia lamblia Ag, EIA Negative (Negative)
== END ==
PROVIDERS: PCP Internal Medicine Adolescent Medicine; Visit Provider Internal Medicine Adolescent Medicine
DX: R19.7 Diarrhea, unspecified (principal)
CPT/HCPCS: 87324; 87506

== ENCOUNTER 2022-10-31 07:18 | Day surgery (SDC) | payer MEDICARE, OTHER, SELFPAY ==
[2022-10-31] VITALS (8 sets, daily range): BP systolic 82–108; BP diastolic 46–64; PULSE 61–79; RESP 16–18; TEMP 36.1–36.3; O2SAT 94–98; BMI 23.7
--- NOTE | 2022-10-31 08:03 | P.PN_ITS ---
[facility] Disclaimer: The information contained in this section may have been updated after the patient was seen, as this information can be updated by other users. Medical History Allergic rhinitis, unspecified Allergies Arthritis History of COVID-19 Hypertension Hypothyroid Low back pain Pulmonary function studies abnormal Skin cancer Surgical History H/O elbow surgery H/O thumb surgery History of back surgery History of eye surgery History of lumbar spinal fusion History of right knee surgery History of surgery History of surgery History of surgery History of surgery on lower extremity Family History Other Alzheimer disease Aortic aneurysm Cancer Coronary artery disease Heart disease Hypertension Social History Smoking Status: Never smoker alcohol intake: never substance use type: denies use current occupational status: employed Travel in the last 8 weeks: Inside the [place] household members: spouse housing: house current occupational exposures/hazards: No caffeine: Yes [facility] Anesthesia Checklist Patient Identification Patient Identification: Arm Band and Verbal (Name & ) Structural Data Admitted From: Home Planned Operative Procedure/s: EGD Consent for Planned Operative Procedure(s) Verified: Yes NPO Status Verified Time NPO: 00:00 Airway Assessment C-Spine Mobility Assessed: Yes TMJ Mobility Assessed: Yes Dentition: Good Dentition Neurological Assessment Level of Consciousness: Awake Hx Seizures: No Numbness or tingling in extremities: No Anesthesia Plan Anesthesia Risk discussed: Yes Anesthesia Plan: Verified ASA Class: II Anesthesia Type: MAC
--- NOTE | 2022-10-31 08:30 | P.PCN_ITS ---
Procedure: Date: 10/31/22 Patient Date of :: 1955 Procedure Performed:: Esophagogastroduodenoscopy with biopsies Indications:: Patient is a 67-year-old male referred by Dr. Zaire Abernathy for upper endosc opy. He has had some symptoms of bloating and gassiness. This is somewhat improved with Prilosec. Patient also describes multiple loose stools and has the feeling of incomplete evacuation. He has undergone previous colonoscopy on 2 occasions which were unremarkable. I have performed last colonoscopy on 04/01/2016 which revealed only some minor diverticulosis. He did undergo stool diarrhea panel which was negative for infectious etiology. Possibility of H. pylori was entertained and he was sent for upper endoscopy. Performing Provider:: El Randall MD Referring Provider:: Zaire Abernathy MD Sedation:: MAC sedation Procedure:: Patient was taken to endoscopy procedure room. He was positioned in lateral decubitus position. Adequate intravenous sedation was achieved with anesthesia titration of propofol. Olympus endoscope was inserted via the oropharynx. Esophagus was cannulated. Overall esophagus appeared unremarkable. Gastroesophageal junction was encountered at approximately 44 cm from the incisors. Stomach was cannulated and insufflated. There was very minimal diffuse nonerosive gastropathy. Retroflexion revealed no evidence of any hiatal hernia. Pylorus was traversed and the endoscope was advanced into the distal duodenum. A couple of biopsies were obtained to evaluate for potential celiac. Biopsy was obtained in the duodenal bulb. A couple of biopsies were obtained in the gastric lumen to assess histopathology and assess for H. pylori. A couple biopsies were obtained at the gastroesophageal junction and distal esophageal biopsies were obtained. Stomach was desufflated and the endoscope was withdrawn. Findings:: Gastroesophageal junction at 44 cm Very minimal faint nonerosive diffuse gastropathy Recommendations:: Plan to follow-up on H. pylori status and biopsies. No obvious etiology for symptoms. If biopsies are unremarkable patient may need follow-up colonoscopy. Complications:: None immediately apparent Estimated blood obtained (mL): 2
--- NOTE | 2022-10-31 10:35 | SUR.PHASEII ---
0831- pt BP 67/35. Daniel Rider RN and myself at bedside. pt placed in trendelenburg. Vidal Hutson CRNA notified and came to bedside and admin medication. next bp was 92/55
== END 2022-10-31 09:35 | disposition home or self-care (01) ==
PROVIDERS: PCP Internal Medicine Adolescent Medicine; Visit Provider Surgery
PROC: 0DJ08ZZ Inspection of Upper Intestinal Tract, Via Natural or Artificial Opening Endoscopic (ICD-10-PCS; CPT 43235; principal; 2022-10-31 08:30)
DX: R14.0 Abdominal distension (gaseous) (principal); R19.7 Diarrhea, unspecified; K31.9 Disease of stomach and duodenum, unspecified; Z79.899 Other long term (current) drug therapy
CPT/HCPCS: 43239; 88305

== ENCOUNTER → 2022-12-09 07:22 | Outpatient (CLI) | payer MEDICARE, OTHER, SELFPAY ==
--- NOTE | 2022-12-09 07:25 | CT_ITS ---
FINAL REPORT TECHNIQUE: Axial CT images were obtained through the sinuses/facial bones. Coronal reformats were obtained. This study was performed with techniques to keep radiation doses as low as reasonably achievable (ALARA). Individualized dose reduction techniques using automated exposure control or adjustment of mA and/or kV according to the patient's size were employed. CLINICAL HISTORY: CONGESTION FINDINGS: There is postoperative change of the bilateral maxillary sinuses. There is no mucosal thickening. There are no air-fluid levels. The ostiomeatal units are patent. The nasal septum is not significantly deviated. No fractures are identified. There is a right globe prosthesis. IMPRESSION: No acute process. Reviewed, Interpreted and Dictated by El Solano III, MD Transcribed by Adithya Wells Authenticated and . [facility]
== END ==
PROVIDERS: PCP Internal Medicine Adolescent Medicine; Visit Provider Allergy & Immunology
DX: R43.0 Anosmia (principal); R09.81 Nasal congestion
CPT/HCPCS: 70486

== ENCOUNTER 2023-01-02 10:43 | Day surgery (SDC) | payer MEDICARE, OTHER, SELFPAY ==
--- NOTE | 2023-01-02 10:55 | EXP.GEN.HP ---
HPI HPI HPI: Patient is a 67-year-old male who presents for colonoscopy. He was recently referred by Dr. Zaire Abernathy for upper endoscopy.? He has had some symptoms of bloating and gassiness.? This is somewhat improved with Prilosec.? Patient also describes multiple loose stools and has the feeling of incomplete evacuation.? He has undergone previous colonoscopy on 2 occasions which were unremarkable.? I have performed last colonoscopy on 04/01/2016 which revealed only some minor diverticulosis.? He did undergo stool diarrhea panel which was negative for infectious etiology.? Possibility of H. pylori was entertained and he was sent for upper endoscopy. Upper endoscopy performed on 10/31/2022 was relatively unremarkable. Discussion was held with the patient regarding proceeding with colonoscopy given his symptoms and due to the fact that he had been 7 years since prior colonoscopy. He did state that he had resolution of symptoms with discontinuation of taurine supplementation. [facility] Disclaimer: The information contained in this section may have been updated after the patient was seen, as this information can be updated by other users. Medical History (Updated 01/02/23 @ 10:58 by El Randall MD) Allergic rhinitis, unspecified Allergies Arthritis Dyspnea on exertion History of asthma History of COVID-19 Hypertension Hypothyroid Low back pain Pulmonary function studies abnormal Skin cancer Surgical History H/O elbow surgery LEFT H/O thumb surgery LEFT History of back surgery History of eye surgery RIGHT EYE History of lumbar spinal fusion History of right knee surgery PARTIAL RIGHT KNEE REPLACEMENT History of surgery LEFT ANKLE REPLACEMENT History of surgery NASAL SX History of surgery JAW SX History of surgery on lower extremity Family History Other Alzheimer disease Aortic aneurysm Cancer Coronary artery disease Heart disease Hypertension Social History Smoking Status: Never smoker alcohol intake: never substance use type: denies use current occupational status: employed Travel in the last 8 weeks: None household members: spouse housing: house current occupational exposures/hazards: No caffeine: Yes Review of Systems Review of Systems Review of systems:: pertinent systems reviewed and negative unless documented below Meds Home Medications and Allergies Home Medications Medication Instructions Recorded Confirmed Type aspirin 81 mg tablet,delayed 81 mg PO ONCE HEART HEALTH 01/27/18 12/30/22 History release (Adult Low Dose Aspirin) montelukast 10 mg tablet 10 mg PO DAILY . 90 days ##90 01/27/18 12/30/22 History sertraline 100 mg tablet 100 mg PO DAILY mood 90 days ##90 01/27/18 12/30/22 History krill oil 500 mg capsule 500 mg PO DAILY heart health 04/19/21 12/30/22 History mirabegron 50 mg tablet,extended 50 mg PO DAILYP PRN urinary 04/19/21 12/30/22 History release 24 hr (Myrbetriq) ramipril 2.5 mg capsule 2.5 mg PO DAILY blood pressure 04/26/21 12/30/22 History azelastine 137 mcg (0.1 %) nasal 1 spray intranasal BID PRN 07/01/22 12/30/22 History spray aerosol ALLERGIES cholecalciferol (vitamin D3) 50 50 mcg PO DAILY Supplement 07/01/22 12/30/22 History mcg (2,000 unit) capsule levothyroxine 25 mcg tablet 50 mcg PO DAILY thyroid 90 days 07/01/22 12/30/22 History #180 tabs aqlmsacp-nlj-CV 200 mcg-vit K 100 1 cap PO DAILY Supplement 07/01/22 12/30/22 History mcg-lycop 500 [id number] capsule (Daily Multivitamin) resveratrol 250 mg capsule 600 mg PO .QD . 07/01/22 12/30/22 History testosterone cypionate 200 mg/mL 200 mg IM WEEKLY Supplement 10/30/22 12/30/22 History intramuscular oil budesonide-formoterol HFA 160 1 puff inhalation QID PRN 12/30/22 12/30/22 Rx mcg-4.5 mcg/actuation aerosol shortness
[2023-01-02 10:59] VITALS: BP 110/70; PULSE 65; RESP 18; TEMP 36.7; O2SAT 98; BMI 23.0
[2023-01-02 11:26] VITALS: O2SAT 98
--- NOTE | 2023-01-02 12:09 | HMH.SCOPE ---
Procedure: Date: 01/02/23 Patient Date of :: 1955 Procedure Performed:: Total colonoscopy with biopsies and polypectomy Indications:: Patient is a 67-year-old male who presents for colonoscopy.? He was recently referred by Dr. Zaire Abernathy for upper endoscopy.? He has had some symptoms of bloating and gassiness.? This is somewhat improved with Prilosec.? Patient also describes multiple loose stools and has the feeling of incomplete evacuation.? He has undergone previous colonoscopy on 2 occasions which were unremarkable.? I have performed last colonoscopy on 04/01/2016 which revealed only some minor diverticulosis.? He did undergo stool diarrhea panel which was negative for infectious etiology.? Possibility of H. pylori was entertained and he was sent for upper endoscopy.? Upper endoscopy performed on 10/31/2022 was relatively unremarkable.? Discussion was held with the patient regarding proceeding with colonoscopy given his symptoms and due to the fact that he had been 7 years since prior colonoscopy.? He did state that he had resolution of symptoms with discontinuation of taurine supplementation. Performing Provider:: El Randall MD Referring Provider:: Zaire Abernathy MD Sedation:: MAC sedation Procedure:: Patient history was obtained and appropriate physical examination was performed. Patient's medications and allergies were reviewed. Informed consent was obtained after explaining the benefits, alternatives, and risks of the procedure including, but not limited to, bleeding, perforation, missed lesions, and adverse reaction to anesthesia medications. Patient was transported to endoscopy procedure room. Patient was connected to monitoring devices. Throughout the procedure the patient's blood pressure, pulse, and oxygen saturations were monitored continuously. Patient identification and planned procedure were verified by the staff. Patient was positioned in lateral decubitus position. Digital anorectal exam was performed. Variable stiffness Olympus colonoscope was inserted and advanced under direct visualization to the cecum. Adequacy of the colonic preparation was noted. The colonoscope was then slowly withdrawn while carefully examining the color, texture, anatomy, and integrity of the mucosoa circumferentially. Within the rectum retroflexion was performed. Colonoscope was then withdrawn. There was some particulate liquid stool throughout the colon which was able to be cleared with suctioning and irrigation. There was some prominence of the mucosal folds of the colon which may be normal. Random right and left biopsies were obtained using cold biopsy forceps. There was a diminutive hyperplastic appearing polyp in the descending colon which was removed with biopsy forceps. Findings:: Hyperplastic appearing descending colon polyp Recommendations:: Follow-up colonoscopy pending pathology. If no adenomatous component likely 10 years. Complications:: None immediately apparent Estimated blood obtained (mL): 2 Colonoscopy Component Colonoscopy Component Was a colonoscopy performed during today's procedure?: Yes Recommended follow up colonoscopy of at least 10 years?: No If no, follow up colonoscopy recommended in ___ years?: Unknown Reason for not recommending >/= 10 yr follow-up interval?: Pending pathology
[2023-01-02 12:12] VITALS: BP 107/64; PULSE 69; RESP 16; TEMP 36.2; O2SAT 97
[2023-01-02 12:22] VITALS: BP 120/68; PULSE 63; RESP 17; O2SAT 97
[2023-01-02 12:42] VITALS: BP 122/77; PULSE 64; RESP 18; O2SAT 97
== END 2023-01-02 12:42 | disposition home or self-care (01) ==
PROVIDERS: PCP Internal Medicine Adolescent Medicine; Visit Provider Surgery
PROC: 0DJD8ZZ Inspection of Lower Intestinal Tract, Via Natural or Artificial Opening Endoscopic (ICD-10-PCS; principal; 2023-01-02 11:30)
DX: K63.5 Polyp of colon (principal)
CPT/HCPCS: 45380; 88305

== ENCOUNTER → 2023-03-18 11:40 | Outpatient (CLI) | payer MEDICARE, OTHER, SELFPAY ==
--- NOTE | 2023-03-18 11:44 | XR_ITS ---
FINAL REPORT CLINICAL HISTORY: lt foot pain, ankle replacement 8 years ago, pain on lateral side of foot and metatarsals, surinder foot popped and now can't bear weight COMPARISON: 01/28/2018 FINDINGS: LEFT FOOT Three views of the left foot demonstrate no acute fracture or dislocation. Diffuse osteopenia is present. An ankle prosthesis is once again identified. The visualized joint spaces are normally aligned. The soft tissues are unremarkable. IMPRESSION: No acute bony abnormality. Diffuse osteopenia. Reviewed, Interpreted and Dictated by Daljit Parker MD Transcribed by Raegan Pendleton Authenticated and [facility]
== END ==
PROVIDERS: PCP Internal Medicine Adolescent Medicine; Visit Provider Orthopaedic Surgery
DX: M79.672 Pain in left foot (principal)
CPT/HCPCS: 73630

== ENCOUNTER → 2023-03-25 11:13 | Outpatient (CLI) | payer MEDICARE, OTHER, SELFPAY ==
--- NOTE | 2023-03-25 14:17 | XR_ITS ---
FINAL REPORT CLINICAL HISTORY: PAIN FINDINGS: Left ankle Six views were obtained. There is no acute fracture or dislocation. There are postoperative changes from tibiotalar arthroplasty. Moderate degenerative changes are present. Posterior soft tissue calcifications are identified. There are chronic calcifications inferior to the medial malleolus. IMPRESSION: Postoperative and chronic appearing findings as detailed above. Reviewed, Interpreted and Dictated by El Solano III, MD Transcribed by Cyndee Bro Authenticated and [facility]
== END ==
PROVIDERS: PCP Internal Medicine Adolescent Medicine; Visit Provider Orthopaedic Surgery
DX: M25.572 Pain in left ankle and joints of left foot (principal); Z96.662 Presence of left artificial ankle joint
CPT/HCPCS: 73610

== ENCOUNTER → 2023-03-26 15:01 | Outpatient (CLI) | payer MEDICARE, OTHER, SELFPAY ==
--- NOTE | 2023-03-26 15:02 | MR_ITS ---
FINAL REPORT CLINICAL HISTORY: left foot mri. HEARD A POP IN ANKLE. HISTORY OF SURGERY. FOOT PAIN ON LATERAL PLANTAR SURFACE FINDINGS: Multiplanar MR imaging of the left foot was performed without contrast. Postoperative changes are seen at the level of the ankle. This causes significant magnetic susceptibility artifact which obscures the detail in this region. Abnormal T1 and T2 signal is seen in the proximal aspect of the fifth metatarsal with a nondisplaced fracture in this region. There is also surrounding soft tissue edema. The other bony structures appear intact. There are mild degenerative changes. The flexor and extensor tendons are intact. No ligamentous injury is identified. The musculature is intact. The plantar aponeurosis is intact. Forefoot soft tissue edema is noted. IMPRESSION: Postoperative changes of the ankle. Acute to subacute nondisplaced fracture of the proximal fifth metatarsal. Authenticated and [facility]
== END ==
PROVIDERS: PCP Internal Medicine Adolescent Medicine; Visit Provider Orthopaedic Surgery
DX: M25.572 Pain in left ankle and joints of left foot (principal)
CPT/HCPCS: 73718

== ENCOUNTER → 2023-04-16 13:02 | Outpatient (CLI) | payer MEDICARE, OTHER, SELFPAY ==
--- NOTE | 2023-04-16 13:05 | XR_ITS ---
FINAL REPORT CLINICAL HISTORY: left 5th met FINDINGS: AP, oblique and lateral views of the left foot were obtained. There is no prior exam for comparison. There is a nondisplaced fracture of the base of the 5th metatarsal. There is mild multi joint degenerative disease. There are postoperative changes from tibiotalar joint replacement. Soft tissues are normal. IMPRESSION: Fracture the 5th metatarsal. Reviewed, Interpreted and Dictated by Dinorah Duncan MD Transcribed by Cyndee Bro Authenticated and [facility]
== END ==
PROVIDERS: PCP Internal Medicine Adolescent Medicine; Visit Provider Podiatrist
DX: M79.672 Pain in left foot (principal); S92.302A Fracture of unspecified metatarsal bone(s), left foot, initial encounter for closed fracture; Y99.9 Unspecified external cause status
CPT/HCPCS: 73630

== ENCOUNTER → 2023-04-24 08:42 | Outpatient (CLI) | payer MEDICARE, OTHER, SELFPAY ==
[2023-04-24 10:57] LABS: Calcium 9.3 mg/dl (8.4-10.2)
[2023-05-04 09:45] LABS: 1,25 Dihydroxy Vitamin D 60 pg/mL (.); 1,25-Dihydroxy, Vitamin D-2 <10 pg/mL (.); 1,25-Dihydroxy, Vitamin D-3 60 pg/mL (.)
== END ==
PROVIDERS: PCP Internal Medicine Adolescent Medicine; Visit Provider Podiatrist
DX: M79.672 Pain in left foot (principal); M79.89 Other specified soft tissue disorders
CPT/HCPCS: 36415; 82310; 82652

== ENCOUNTER → 2023-05-06 11:49 | Outpatient (CLI) | payer MEDICARE, OTHER, SELFPAY ==
--- NOTE | 2023-05-06 11:53 | XR_ITS ---
FINAL REPORT CLINICAL HISTORY: Fracture follow-up COMPARISON: 04/16/2023 FINDINGS: LEFT FOOT: Three views of the left foot were obtained. There is no acute fracture or dislocation. There is a there is either postsurgical change or subacute fracture of the proximal fifth metatarsal, which persists unchanged since the prior exam of March. There is mild degenerative change in the left foot. There is postoperative change present as well from a tibiotalar joint replacement. There is no soft tissue abnormality. IMPRESSION: Postoperative change and mild degenerative change as described. Subacute fracture versus postoperative change proximal fifth metatarsal, stable since March. Reviewed, Interpreted and Dictated by El Solano III, MD Transcribed by Raegan Pendleton Authenticated and [facility]
== END ==
PROVIDERS: PCP Internal Medicine Adolescent Medicine; Visit Provider Podiatrist
DX: M79.672 Pain in left foot (principal)
CPT/HCPCS: 73630

== ENCOUNTER → 2023-05-28 09:18 | Outpatient (CLI) | payer MEDICARE, OTHER, SELFPAY ==
[2023-05-28 09:37] LABS: Basophils # 0.1 K/mm3 (0-0.2); Basophils % 0.8 % (0.1-2.0); Eosinophils # 0.3 K/mm3 (0.0-0.4); Eosinophils % 3.3 % (0.1-12.0); Hematocrit 47.1 % (42.0-52.0); Hemoglobin 16.2 g/dL (14.1-18.0); Lymphocytes # 1.8 K/mm3 (0.7-4.5); Lymphocytes % 24.1 % (10-50); Mean Corpuscular HGB Conc 34.3 g/dL (31.8-35.4); Mean Corpuscular Hemoglobin 31.4 pg (27.0-31.2); Mean Corpuscular Volume 91.5 fl (80-94); Mean Platelet Volume 8.6 fl (7.4-10.4); Monocytes # 0.6 K/mm3 (0.1-1.0); Monocytes % 7.2 % (1.7-9.3); Neutrophils # 4.9 K/mm3 (1.8-7.8); Neutrophils % 64.6 % (37.0-80.0); Platelet Count 197 K/mm3 (142-424); Red Blood Count 5.15 M/mm3 (4.60-6.20); Red Cell Distribution Width 13.4 % (11.5-17.5); White Blood Count 7.6 K/mm3 (4.8-10.8)
[2023-05-28 10:01] LABS: Alanine Aminotransferase 51 U/L (12-78); Albumin Level 4.3 g/dl (3.5-5.0); Albumin/Globulin Ratio 1.4 (1.1-1.8); Alkaline Phosphatase 64 U/L (38-126); Anion Gap 12.4 mEq/L (5-15); Aspartate Amino Transferase 111 U/L (17-59); Bilirubin,Total 0.7 mg/dl (0.2-1.3); Blood Urea Nitrogen 18 mg/dl (9-20); Calcium 9.3 mg/dl (8.4-10.2); Carbon Dioxide 29 mmol/L (22.0-30.0); Chloride 102 mmol/L (98-107); Chol/HDL Ratio 3.7 (1-3.5); Cholesterol 178 mg/dl (140-200); Estimated Glomerular Filt Rate 60 ml/min (>60); GFR (African American) 73 ML/MIN (>60); Globulin 3.1 g/dL (1.3-3.2); Glucose 97 mg/dl (74-100); HDL Cholesterol 48 mg/dl (40-60); Potassium 4.4 mmoL/L (3.5-5.1); Sodium 139 mmol/L (136-145); Total Protein,Serum 7.4 g/dl (6.3-8.2); Triglycerides 58 mg/dl (30-150); VLDL Cholesterol 12 mg/dL (0-40)
[2023-05-28 10:11] LABS: Direct LDL Cholesterol 104.65 mg/dL (100-129)
[2023-05-29 10:12] LABS: Testosterone,Total 738 ng/dL (264-916)
== END ==
PROVIDERS: PCP Internal Medicine Adolescent Medicine; Visit Provider Internal Medicine Adolescent Medicine
DX: R79.89 Other specified abnormal findings of blood chemistry (principal); E03.9 Hypothyroidism, unspecified; E78.5 Hyperlipidemia, unspecified
CPT/HCPCS: 36415; 80053; 80061; 84403; 85025

== ENCOUNTER → 2023-06-03 10:39 | Outpatient (CLI) | payer MEDICARE, OTHER, SELFPAY ==
--- NOTE | 2023-06-03 10:46 | XR_ITS ---
FINAL REPORT CLINICAL HISTORY: left foot fx COMPARISON: 05/06/2023 FINDINGS: Left foot Three views were obtained. Left ankle prosthesis is identified. There is a transverse fracture through the base of the 5th metatarsal. Fracture line remains visible. There is no definite bridging callus. Findings are similar to prior. IMPRESSION: Fracture as above. Reviewed, Interpreted and Dictated by Daljit Parker MD Transcribed by Cyndee Bro Authenticated and [facility]
== END ==
PROVIDERS: PCP Internal Medicine Adolescent Medicine; Visit Provider Podiatrist
DX: S92.302A Fracture of unspecified metatarsal bone(s), left foot, initial encounter for closed fracture (principal); Y99.9 Unspecified external cause status
CPT/HCPCS: 73630

== ENCOUNTER → 2023-06-08 07:30 | Outpatient (CLI) | payer MEDICARE, OTHER, SELFPAY ==
--- NOTE | 2023-06-08 07:30 | CT_ITS ---
FINAL REPORT TECHNIQUE: Thin section axial CT images of the left with coronal and sagittal reformats were performed. 3D reformatted images were also obtained and reviewed. This study was performed with techniques to keep radiation doses as low as reasonably achievable (ALARA). Individualized dose reduction techniques using automated exposure control or adjustment of mA and/or kV according to the patient''s size were employed. CLINICAL HISTORY: Evaluate 5th met fracture FINDINGS: There is a subacute-chronic fracture of the proximal fifth metatarsal with area of bony union along the anterior aspect seen on sagittal image 33. Mid and posterior aspect of the fracture does not show bony union. No other fracture is identified. There are postoperative changes of the tibiotalar joint. There are moderate degenerative changes of the ankle and rear foot. IMPRESSION: Small area of bony fusion at the anterior proximal fifth metatarsal fracture. Otherwise, no bony union seen. Reviewed, Interpreted and Dictated by El Solano III, MD Transcribed by Renea Vivas Authenticated and [facility]
== END ==
PROVIDERS: PCP Internal Medicine Adolescent Medicine; Visit Provider Podiatrist
DX: S92.302A Fracture of unspecified metatarsal bone(s), left foot, initial encounter for closed fracture; M79.672 Pain in left foot
CPT/HCPCS: 73700

== ENCOUNTER → 2023-06-25 10:09 | Outpatient (CLI) | payer MEDICARE, OTHER, SELFPAY ==
--- NOTE | 2023-06-25 10:12 | XR_ITS ---
FINAL REPORT CLINICAL HISTORY: Foot Pain COMPARISON: 06/03/2023 FINDINGS: Left foot Three views were obtained. There are postoperative changes in the tibiotalar joint. Mild degenerative changes are present. There is a subacute fracture of the proximal 5th metatarsal with nonunion versus osteotomy site with nonunion. Findings are stable since prior. IMPRESSION: Postsurgical changes, stable since prior. Reviewed, Interpreted and Dictated by El Solano III, MD Transcribed by Cyndee Bro Authenticated and [facility]
== END ==
PROVIDERS: PCP Internal Medicine Adolescent Medicine; Visit Provider Podiatrist
DX: M79.672 Pain in left foot (principal)
CPT/HCPCS: 73630

== ENCOUNTER 2023-07-22 11:19 | Outpatient (CLI) | payer MEDICARE, OTHER, SELFPAY ==
--- NOTE | 2023-07-22 11:24 | XR_ITS ---
FINAL REPORT CLINICAL HISTORY: Left foot fracture follow-up COMPARISON: 06/25/2023 FINDINGS: LEFT FOOT Three views of the left foot demonstrate a subacute fracture of the proximal fifth metatarsal. There is at least partial lack of bony union. There is mild degenerative change of the first metatarsal. There are postoperative changes of the tibiotalar joint. The soft tissues are unremarkable. IMPRESSION: Subacute fracture proximal fifth metatarsal. Reviewed, Interpreted and Dictated by El Solano III, MD Transcribed by Yessica Vasques Authenticated and [facility]
== END 2023-07-22 23:59 ==
PROVIDERS: PCP Internal Medicine Adolescent Medicine; Visit Provider Podiatrist
DX: S99.192K Other physeal fracture of left metatarsal, subsequent encounter for fracture with nonunion (principal); Y99.9 Unspecified external cause status
CPT/HCPCS: 73630

== ENCOUNTER 2023-08-26 12:22 | Outpatient (CLI) | payer MEDICARE, OTHER, SELFPAY ==
--- NOTE | 2023-08-26 13:00 | XR_ITS ---
FINAL REPORT CLINICAL HISTORY: left foot pain COMPARISON: 07/22/2023 FINDINGS: Left foot Three views were obtained. There is no acute fracture or dislocation. There are postoperative changes of tibiotalar arthroplasty. There are mild degenerative changes. There is a presumed chronic fracture of the proximal 5th metatarsal versus postoperative change, stable. IMPRESSION: Postsurgical changes as detailed. Reviewed, Interpreted and Dictated by El Solano III, MD Transcribed by Cyndee Bro Authenticated and [facility]
== END 2023-08-26 23:59 ==
LOC: RAD 12:24
PROVIDERS: PCP Internal Medicine Adolescent Medicine; Visit Provider Podiatrist
DX: M79.672 Pain in left foot
CPT/HCPCS: 73630

== ENCOUNTER 2023-09-30 09:55 | Outpatient (CLI) | payer MEDICARE, OTHER, SELFPAY ==
--- NOTE | 2023-09-30 10:00 | XR_ITS ---
FINAL REPORT CLINICAL HISTORY: Left foot Willingham fracture - F/u - pain COMPARISON: 08/26/2023 FINDINGS: LEFT FOOT: Three views of the left foot were obtained. There is a subacute fracture of the proximal fifth metatarsal which is stable. There is lack of bony fusion. There are postoperative changes from ankle arthroplasty. There is mild degenerative change. There is no soft tissue abnormality. IMPRESSION: Proximal fifth metatarsal fracture with lack of bony fusion. Postoperative change in the ankle. Reviewed, Interpreted and Dictated by El Solano III, MD Transcribed by Yessica Vasques Authenticated and [facility]
== END 2023-09-30 23:59 ==
PROVIDERS: PCP Internal Medicine Adolescent Medicine; Visit Provider Podiatrist
DX: M79.672 Pain in left foot (principal)
CPT/HCPCS: 73630

== ENCOUNTER 2023-10-14 09:59 | Outpatient (CLI) | payer MEDICARE, OTHER, SELFPAY ==
--- NOTE | 2023-10-14 10:09 | XR_ITS ---
FINAL REPORT CLINICAL HISTORY: foot pain fx . pain about 12 days ago after losing balance COMPARISON: 09/30/2023 FINDINGS: Left foot Three views were obtained. There is a healing transverse fracture through the base of the 5th metatarsal consistent with a healing Willingham fracture. Orthopedic hardware is seen in the mortise consistent with prior ankle replacement. IMPRESSION: Healing fracture as above. Reviewed, Interpreted and Dictated by Daljit Parker MD Transcribed by Cyndee Bro Authenticated and [facility]
== END 2023-10-14 23:59 ==
PROVIDERS: PCP Internal Medicine Adolescent Medicine; Visit Provider Podiatrist
DX: M79.672 Pain in left foot (principal)
CPT/HCPCS: 73630

== ENCOUNTER 2023-12-02 09:22 | Outpatient (CLI) | payer MEDICARE, OTHER, SELFPAY ==
--- NOTE | 2023-12-02 09:25 | XR_ITS ---
FINAL REPORT CLINICAL HISTORY: Left foot Pain COMPARISON: None FINDINGS: LEFT FOOT: Three views of the left foot were obtained. Postoperative changes are noted from ankle arthroplasty. There is a subacute fracture of the proximal fifth metatarsal with partial bony fusion which is visually stable. There is no acute fracture or dislocation. There is mild degenerative change. There is no soft tissue abnormality. IMPRESSION: Stable subacute fracture proximal fifth metatarsal with partial bony fusion. Reviewed, Interpreted and Dictated by El Solano III, MD Transcribed by Yessica Vasques [facility]henticated [facility]
== END 2023-12-02 23:59 | disposition home or self-care (01) ==
LOC: RAD 09:23
PROVIDERS: PCP Internal Medicine Adolescent Medicine; Visit Provider Podiatrist
DX: M79.672 Pain in left foot (principal)
CPT/HCPCS: 73630

== ENCOUNTER 2023-12-31 10:16 | Outpatient (CLI) | payer MEDICARE, OTHER, SELFPAY ==
[2023-12-31 12:09] LABS: Chloride 102 mmol/L (98-107); Potassium 4.3 mmoL/L (3.5-5.1); Sodium 136 mmol/L (136-145)
[2023-12-31 12:12] LABS: Anion Gap 12.3 mEq/L (5-15); Blood Urea Nitrogen 21 mg/dl (9-20); Calcium 9.4 mg/dl (8.4-10.2); Carbon Dioxide 26 mmol/L (22.0-30.0); Estimated Glomerular Filt Rate 60 ml/min (>60); GFR (African American) 73 ML/MIN (>60); Glucose 114 mg/dl (74-100)
[2024-01-11 09:15] LABS: 1,25 Dihydroxy Vitamin D 50 pg/mL (.); 1,25-Dihydroxy, Vitamin D-2 <10 pg/mL (.); 1,25-Dihydroxy, Vitamin D-3 49 pg/mL (.)
== END 2023-12-31 23:59 | disposition home or self-care (01) ==
LOC: LAB 10:17
PROVIDERS: PCP Internal Medicine Adolescent Medicine; Visit Provider Internal Medicine Adolescent Medicine
DX: E29.1 Testicular hypofunction (principal); I10 Essential (primary) hypertension
CPT/HCPCS: 36415; 80048; 82652

== ENCOUNTER 2024-03-09 09:19 | Outpatient (CLI) | payer MEDICARE, OTHER, SELFPAY ==
--- NOTE | 2024-03-09 09:23 | XR_ITS ---
FINAL REPORT CLINICAL HISTORY: Foot Pain COMPARISON: None FINDINGS: LEFT FOOT Three views of the left foot demonstrate no acute fracture or dislocation. The patient has undergone a previous left ankle replacement. Osteopenia is noted. The visualized joint spaces are normally aligned. 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 The soft tissues are unremarkable. IMPRESSION: Prior ankle replacement. Osteopenia is noted. 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 Reviewed, Interpreted and Dictated by Daljit Parker MD Transcribed by Raegan Pendleton Authenticated and [facility]
--- NOTE | 2024-03-09 09:23 | XR_ITS ---
FINAL REPORT CLINICAL HISTORY: Foot Pain COMPARISON: None FINDINGS: RIGHT FOOT 3 views of the right foot were obtained. There is no acute fracture or dislocation. A small 5 mm os trigonum is present. There is a calcific density overlying the dorsal aspect of the talus, a finding of uncertain significance. Visualized joint spaces are normally aligned. Soft tissues are unremarkable. IMPRESSION: No acute bony abnormality. Calcific density overlying the dorsal aspect of the talus, finding of uncertain significance. Reviewed, Interpreted and Dictated by Daljit Parker MD Transcribed by Raegan Pendleton Authenticated and [facility]
== END 2024-03-09 23:59 | disposition home or self-care (01) ==
LOC: RAD 09:21
PROVIDERS: PCP Internal Medicine Adolescent Medicine; Visit Provider Podiatrist
DX: M79.672 Pain in left foot; M85.872 Other specified disorders of bone density and structure, left ankle and foot; M79.671 Pain in right foot; Z98.890 Other specified postprocedural states
CPT/HCPCS: 73630

== ENCOUNTER 2024-06-09 11:22 | Outpatient (CLI) | payer MEDICARE, OTHER, SELFPAY ==
--- NOTE | 2024-06-09 11:26 | XR_ITS ---
PROCEDURE INFORMATION: Exam: XR Left Foot Complete; Alignment Exam date and time: 06/09/2024 11:27 AM Age: 69 years old Clinical indication: Pain; Foot; Left; Additional info: F/u left foot fracture TECHNIQUE: Imaging protocol: Radiologic exam of the left foot. Views: 3 or more views. COMPARISON: CR XR FOOT WT BEARING LT 3V 03/09/2024 9:26 AM FINDINGS: Bones/joints: Hindfoot-midfoot and midfoot-forefoot articulations normal. Metatarsals and phalanges without an acute process. Subtalar and tibiotalar joint normal. Mild degenerative changes at the first metatarsal phalangeal joint. Mild soft tissue swelling about the joint space medially. Fracture involving the proximal aspect of the 5th metatarsal. This appears healed. Severe degenerative changes within the subtalar joint. Question prior trauma involving the body of the talus. Prior tibiotalar joint arthroplasty. Soft tissues: See Bones/joints finding. IMPRESSION: 1. Mild degenerative changes at the first metatarsal phalangeal joint. Mild soft tissue swelling about the joint space medially. 2. Fracture involving the proximal aspect of the 5th metatarsal. This appears healed.
== END 2024-06-09 23:59 | disposition home or self-care (01) ==
LOC: RAD 11:24
PROVIDERS: PCP Internal Medicine Adolescent Medicine; Visit Provider Podiatrist
DX: M79.672 Pain in left foot (principal)
CPT/HCPCS: 73630

== ENCOUNTER 2024-10-12 11:24 | Outpatient (CLI) | payer MEDICARE, OTHER, SELFPAY ==
--- NOTE | 2024-10-12 11:29 | XR_ITS ---
FINAL REPORT CLINICAL HISTORY: ACUTE PAIN LT SHOULDER, anteriorly and laterally FINDINGS: 3 views of the left shoulder were obtained. No prior exam for comparison. There is a chronic appearing distal clavicle fracture. There is no acute fracture or dislocation. There clavicular joint is intact. There is degenerative joint disease of both the glenohumeral and acromioclavicular joints. Soft tissues are unremarkable. IMPRESSION: Degenerative/chronic change without acute osseous abnormality of the left shoulder. Reviewed, Interpreted and Dictated by Dinorah Duncan MD Transcribed by Yessica Vasques Authenticated and [facility]
[2024-10-12 12:06] LABS: Basophils # 0.1 K/mm3 (0-0.2); Basophils % 0.9 % (0.1-2.0); Eosinophils # 0.3 K/mm3 (0.0-0.4); Eosinophils % 4.5 % (0.1-12.0); Hematocrit 47.3 % (42.0-52.0); Hemoglobin 16.2 g/dL (14.1-18.0); Lymphocytes # 2.1 K/mm3 (0.7-4.5); Mean Corpuscular HGB Conc 34.2 g/dL (31.8-35.4); Mean Corpuscular Volume 87.6 fl (80-94); Mean Platelet Volume 10.4 fl (7.4-10.4); Monocytes # 0.5 K/mm3 (0.1-1.0); Monocytes % 7.5 % (1.7-9.3); Neutrophils # 3.6 K/mm3 (1.8-7.8); Neutrophils % 54.9 % (37.0-80.0); Platelet Count 236 K/mm3 (142-424); Red Cell Distribution Width 13.5 % (11.5-17.5); White Blood Count 6.5 K/mm3 (4.8-10.8)
[2024-10-12 12:50] LABS: Albumin Level 4.8 g/dl (3.5-5.0); Chloride 102 mmol/L (98-107); Potassium 4.3 mmoL/L (3.5-5.1); Sodium 139 mmol/L (136-145)
[2024-10-12 12:53] LABS: Alanine Aminotransferase 30 U/L (12-78); Albumin/Globulin Ratio 1.8 (1.1-1.8); Alkaline Phosphatase 76 U/L (38-126); Anion Gap 12.3 mEq/L (5-15); Aspartate Amino Transferase 47 U/L (17-59); Bilirubin,Total 0.9 mg/dl (0.2-1.3); Blood Urea Nitrogen 20 mg/dl (9-20); Carbon Dioxide 29 mmol/L (22.0-30.0); Cholesterol 213 mg/dl (140-200); Estimated Glomerular Filt Rate 60 ml/min (>60); GFR (African American) 73 ML/MIN (>60); Globulin 2.6 g/dL (1.3-3.2); Total Protein,Serum 7.4 g/dl (6.3-8.2); Triglycerides 90 mg/dl (30-150); VLDL Cholesterol 18 mg/dL (0-40)
[2024-10-12 12:54] LABS: Calcium 9.4 mg/dl (8.4-10.2); Chol/HDL Ratio 3.9 (1-3.5); Glucose 93 mg/dl (74-100); HDL Cholesterol 55 mg/dl (40-60)
[2024-10-12 13:05] LABS: Direct LDL Cholesterol 122.36 mg/dL (100-129)
[2024-10-12 14:13] LABS: Prostate Specific Ag Screen 1.7 ng/ml (0.0-4.0)
[2024-10-13 14:12] LABS: Testosterone,Total 985 ng/dL (264-916)
== END 2024-10-12 23:59 | disposition home or self-care (01) ==
LOC: RAD 11:27
PROVIDERS: PCP Internal Medicine Adolescent Medicine; Visit Provider Internal Medicine Adolescent Medicine
DX: M25.512 Pain in left shoulder (principal); E29.1 Testicular hypofunction; E03.9 Hypothyroidism, unspecified; R53.82 Chronic fatigue, unspecified
CPT/HCPCS: 36415; 73030; 80053; 80061; 84403; 85025; G0103

== ENCOUNTER 2024-11-09 11:00 | Outpatient (RCR) | payer MEDICARE, OTHER, SELFPAY ==
--- NOTE | 2024-10-19 13:29 | HMH.OTOPEV ---
OT Inpatient Evaluation Rehab OT Outpatient Eval Start: 10/19/24 13:19 Freq: Status: Active Protocol: Document 10/19/24 13:19 [email or web address] (Rec: 10/19/24 13:27 FLORINDA [id number]) E-signed By Ileana Ortega, OT Outpatient Therapy Subjective History Subjective History 69 year old male referred to skilled OP OT services for L shld pain. Patient is an active male who complete strengthening exercises, biking and weight lifting on a regular basis. X-ray on Degenerative/chronic change without acute osseous abnormality of the left shoulder. Patient AROM of L UE is WFL and request to have stretches and strengthening exer tasks for the L UE along with decreasing pain levels. Chief Complaint Pain Symptom Type Ache Symptoms Aggravated By Physical Activity Prior Functional Limitations None Current Functional Limitations Lifting Symptom Description Constant and Continuous Level of pain today (0-10) 0 Pain scale - at its best (0-10) 0 Pain scale - at its worst (0-10) 3 Shoulder/Elbow Eval Shoulder Objective Measurements Shoulder ROM Left Shoulder Abduction Active Range of 160 Motion (degrees) Shoulder Flexion Active Range of Motion 160 (degrees) Query Text: Shoulder External Rotation Active Range 80 of Motion (degrees) Shoulder Internal Rotation Active Range 70 of Motion (degrees) pain with active ROM shoulder exam left standard Shoulder MMT Lower Trapezius Strength Grade 4- Good- Serratus Anterior Strength Grade 4- Good- Shoulder Abduction Strength Grade 4- Good- Shoulder Extension Strength Grade 4- Good- Shoulder Flexion Strength Grade 4- Good- Shoulder Horizontal Abduction Strength 4- Good- Grade Shoulder Horizontal Adduction Strength 4- Good- Grade Infraspinatus/Teres Minor Strength Grade 4- Good- Shoulder External Rotation Strength 4- Good- Grade Elbow Objective Measurements QuickDASH Activities Please rate your ability to do the following activities in the last week by selecting the number below the appropriate response. 1. Open a tight or new jar. No difficulty 2. 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 3. Carry a shopping bag or briefcase. No difficulty 4. Wash your back. No difficulty 5. Use a knife to cut food. No difficulty 6. Recreational activities in which you Mild difficulty take some force or impact through your arm, shoulder, or hand (e.g., golf, hammering, tennis, etc.). 7. During the past week, to what extent Not at all has your arm, shoulder or hand problem interfered with your normal social activities with family, friends, neighbors or groups? 8. During the past week, were you Not limited at all limited in your work or other regular daily activites as a result of your arm, shoulder or hand problem? 9. Arm, shoulder or hand pain. Mild 10. Tingling (pins and needles) in your None arm, shoulder or hand. 11. During the past week, how much Mild difficulty difficulty have you had sleeping because of the pain in your arm, shoulder or hand? Quick DASH 14 OT Outpatient Assessment Impairments Problems/Impairments Impaired Range of Motion, Impaired Strength,Subjective C /O Pain Prognosis Rehab Potential Good Clinical Impression Consistent with Diagnosis Yes Short Term Goals Number of Weeks 2 Increase Range of Motion Yes: Improve AROM of L UE shld flexion: 170; abd: 170; er: 85; Increase Strength Yes: Improve L UE shld strength to 4/5 throughout Decrease Subjective C/O Pain Yes: 2/10 pain at worst Patient to be Ind w/ HEP Yes: AAROM Patient to be Ind w/ Advanced HEP Yes: Strengthening Improve Quick Dash Score Yes: 10 Chcf Goals Number of Weeks 4 Increase Range of Motion Yes: Improve AROM of L UE shld flexion: 180; abd: 180; er: 90; Increase Strength Yes: Improve L UE shld strength to 4+/5 throughout Decrease Subjective C/O Pain Yes: 1/10 pain at worst Patient to be Ind w/ HEP Yes: AROM Patient to be Ind w/ Advanced HEP Yes: Advance strengthening Improve Quick Dash Score Yes: 8 Outpatient Therapy Plan of Care Treatment Plan May Include Therapeutic Exercise Including Home Yes Exercise Program Manual Therapy Techniques Yes Therapeutic Activities to Return to Yes Previous Functional/Work Level Thermal Modalities Yes Electrical Stimulation Yes Ultrasound/Phonophoresis Yes Iontophoresis Yes Eval/Re-Eval Yes Aquatic Therapy Yes Frequency Times per week 2x/wk Duration Number of Weeks 4 weeks Addendums This patient is a candidate for social No or vocational rehab? Patient/Guardian verbally acknowledges Yes understanding of treatment program and consents to further treatment? Patient/Guardian verbally acknowledges Yes understanding of diagnosis, prognosis and goals for treatment? Eval Complexity OT Charge 39404 - Low Complexity PHYSICIAN CERTIFICATION: I certify the specified therapy services for Yuri Cook are required, authorized, and reviewed every 30 days.
== END 2024-11-09 23:59 | disposition home or self-care (01) ==
LOC: OT 11:00
PROVIDERS: PCP Internal Medicine Adolescent Medicine; Visit Provider Internal Medicine Adolescent Medicine
DX: M19.012 Primary osteoarthritis, left shoulder (principal)
CPT/HCPCS: 97014; 97110; 97140; 97165; 97530; G0283

== ENCOUNTER 2024-12-14 11:00 | Outpatient (RCR) | payer MEDICARE, OTHER, SELFPAY ==
--- NOTE | 2024-11-21 12:59 | HMH.RHREAS ---
Rehab Reassessment Rehab OP Re-assessment Start: 11/21/24 12:52 Freq: Status: Active Protocol: Document 11/21/24 12:52 PARRIS (Rec: 11/21/24 12:59 [facility] [id number] E-signed By Abimbola Rushing OT Rehab Re-assessment Subjective Subjective There may be some improvements. Objective Objective Notes Pt continues to be seen twice a week in order to address left shoulder deficits. Each session, pt engages in AROM, AAROM, and strengthening exercises for L shoulder. Pt also receives PROM manual stretching in all planes; flexion, abduction, ER, and IR . Modalities are provided in order to decrease pain/ inflammation. Assessment Progress Assessment Slower Than Expected Assessment Notes Pt is very consistent about attending therapy sessions. Pt returns to his PCP for follow up in December. Pt reports continued pain with certain motions such as internal rotation that is still reaching 6/10 at worst. However, at best his pain is 0 /10. Pt has not had a MRI at this time. Therapist has heard audible grinding while completing certain exercises. Pt's AROM is within functional limits, but he is still having pain with motion. Therapist recommends follow up and possible MRI for further evaluation. Current AROM L shoulder Flex: 165 degrees Abd: 165 degrees ER: 85 degrees IR: [address] degrees [address] goals [address], 4, and 5 Goals Not Met See below Revised Goals ST, 3, and 6 LT-6 Plan Plan Continue with OT plan of care at this time. Frequency of Therapy 2x's a week Duration of therapy 4 more weeks Time and Billing Re-Eval Time 8 Re-Eval Billing Units 1 Charge for OT reassessment? No PHYSICIAN CERTIFICATION: I certify the specified therapy services for Yuri Waddell are required, authorized, and reviewed every 30 days.
== END 2024-12-14 23:59 | disposition home or self-care (01) ==
LOC: OT 11:00
PROVIDERS: PCP Internal Medicine Adolescent Medicine; Visit Provider Internal Medicine Adolescent Medicine
DX: M19.012 Primary osteoarthritis, left shoulder (principal)
CPT/HCPCS: 97014; 97035; 97110; 97140; G0283

== ENCOUNTER 2025-04-07 08:43 | Outpatient (CLI) | payer MEDICARE, OTHER, SELFPAY ==
--- OUTSIDE RECORDS SUMMARY | 2025-02-08 11:00 | XMS_ITS | Encounter Summary ---
Author Organization Healthcare Address [address] [place] [address] Care Team Providers Care Tree Deadener Name Role Phone Zaire Abernathy MD Primary Care Provider [phone] Reason for Visit * Reason Comments Eye Exam Encounter Details Date Type Department Care Team (Late st Contact Info) Description 02/08/2025 11:00 AM EDT Office Visit [facility] [address] [place] [address] Yuri Holland MD [address] [address] PVD (posterior vitreous detachment), left eye (Primary Dx); Myopia of left eye; Regular astigmatism of left eye; Presbyopia Social History Tobacco Use Types Packs/Day Years Used Date Smoking Tobacco: Never Passive Smoke Exposure: Never Smokeless Tobacco: Never Tobacco Cessation:Counseling Given: Not Answered Sex and Gender Information Value Date Recorded Sex Assigned at Male 01/07/2022 3:07 PM EDT Legal Sex Male 7:28 PM EDT Gender Identity Male 01/07/2022 3:07 PM EDT Sexual Orientation Straight 01/07/2022 3: 07 PM EDT documented as of this encounter Miscellaneous Notes * Assessment & Plan Note - Yuri Holland MD - 02/08/2025 11:00 AM EDT Associated Problem(s): Myopia * Assessment & Plan Note - Yuri Holland MD - 02/08/2025 11:00 AM EDT Associated Problem(s): Presbyopia Signs/symptoms of retinal detachment discussed--need to contact us LESLIE if these arise Disp spec Rx Discussed living w/ 1 good eye Rtc 12 mos for ar/gl/mr/dilated fundus exam * Progress Notes - Yuri Holland MD - 02/08/2025 11:00 AM EDT Subjective Chief Complaint Eye Exam HPI 69 yo male in clinic for yearly eye exam. Pt states vision in left eye (OS) is fine. Pt states he has a lot of floaters now, not sure if they're new or older. Denies pain, pressure, flashes, and use of eye drops. Happy w/ vision but floaters drive me batty; needs new spec Rx Last edited by Yuri Holland MD on 02/08/2025 12:05 PM. ROS Positive for: Eyes Negative for: Constitutional, Gastrointestinal, Neurological, Skin, Genitourinary, Musculoskeletal,HENT, Endocrine, Cardiovascular, Respiratory, Psychiatric, Allergic/Imm, Heme/Lymph Last edited by Mariaelena Sánchez on 02/08/2025 11:13 AM. Objective Base Eye Exam Visual Acuity (Snellen - Linear) Right Left Dist cc pros 20/20 Correction: Glasses Tonometry (Tonopen, 11:30 AM) Right Left Pressure 11 Pupils Shape Right pros Left Round Visual [place]ffman Right Left Full Extraocular Movement Right Left Full Full Neuro/Psych Oriented x3: Yes Mood/Affect: Normal Dilation Left eye: 1% Tropicamide, 2.5% Phenylephrine @ 11:31 AM Slit Lamp and Fundus Exam External Exam Right Left External prosthetic Normal Slit Lamp Exam Right Left Lids/Lashes Normal; no ptosis Conjunctiva/Sclera White and quiet Cornea Clear Anterior Chamber Deep and quiet Iris Normal pupil size and shape Lens tr ns Vitreous pvd Fundus Exam Right Left Disc No edema; no vascularization; good color (28D Lens) C/D Ratio 0.3 Macula normal Vessels normal Periphery flat/att'd 360 Refraction Wearing Rx Sphere Cylinder [place] Add Right -4.50 Sphere Left -6.75 +1.75 021 +1.50 Age: 5yrs Type: Bifocal Manifest Refraction Sphere Cylinder [place] Dist VA Add Near VA Right [place] Left -6.50 +1.50 172 20/20 +2.25 J1+ Final Rx Sphere Cylinder [place] Dist VA Add Near VA Right [place] Left -6.50 +1.50 172 20/20 +2.25 J1+ Expiration Date: 02/08/2026 Assessment/Plan Subjective Chief Complaint Eye Exam HPI 69 yo male in clinic for yearly eye exam. Pt states vision in left eye (OS) is fine. Pt states he has a lot of floaters now, not sure if they're new or older. Denies pain, pressure, flashes, and use of eye drops. Last edited by Mariaelena Sánchez on 02/08/2025 11:15 AM. ROS Positive for: Eyes Negative for: Constitutional, Gastrointestinal, Neurological, Skin, Genitourinary, Musculoskeletal,HENT, Endocrine, Cardiovascular, Respiratory, Psychiatric, Allergic/Imm, Heme/Lymph Last edited by Mariaelena Sánchez on 02/08/2025 11:13 AM. Objective Base Eye Exam Visual Acuity (Snellen - Linear) Right Left Dist cc pros 20/20 Correction: Glasses Tonometry (Tonopen, 11:30 AM) Right Left Pressure 11 Pupils Shape Right pros Left Round Visual [place] Right Left Full Extraocular Movement Right Left Full Full Neuro/Psych Oriented x3: Yes Mood/Affect: Normal Dilation Left eye: 1% Tropicamide, 2.5% Phenylephrine @ 11:31 AM Refraction Wearing Rx Sphere Cylinder [place] Add Right -4.50 Sphere Left -6.75 +1.75 021 +1.50 Age: 5yrs Type: Bifocal Manifest Refraction Sphere Cylinder [place] Dist VA Add Near VA Right [place] Left -6.50 +1.50 172 20/20 +2.25 J1+ Assessment/Plan Assessment & Plan PVD (posterior vitreous detachment), left eye Myopia of left eye Regular astigmatism of left eye Presbyopia Signs/symptoms of retinal detachment discussed--need to contact us LESLIE if these arise Disp spec Rx Discussed living w/ 1 good eye Rtc 12 mos for ar/gl/mr/dilated fundus exam documented in this encounter Plan of Treatment Upcoming Encounters Date Type Department Care Team (Late st Contact Info) Description 03/07/2026 10:30 AM EDT Office Visit [facility] [address] [place] [address] Yuri Holland MD 110 [facility] [address] [place] [address] documented as of this encounter Visit Diagnoses Diagnosis PVD (posterior vitreous detachment), left eye- Primary Myopia of left eye Regular astigmatism of left eye Presbyopia documented in this encounter Additional Health Concerns Assessment Noted Time A fall risk assessment has been complete d for the patient 02/08/2025 11:19 AM EDT A Body Mass Index follow-up plan has been documented for the patient 02/08/2025 12:13 PM EDT documented as of this encounter Care Teams Tree Deadener Relationship Specialty Start Date End Date Zaire Abernathy MD [address] [place] [address] [place] [id number] PCP - General Internal Medicine 01/12/24 documented as of this encounter
--- NOTE | 2025-04-07 08:46 | MR_ITS ---
FINAL REPORT TECHNIQUE: Multiplanar MR without contrast CLINICAL HISTORY: ACUTE PAIN LT SHOULDER COMPARISON: none FINDINGS: Marrow signal: Numerous cysts within the humeral head considered degenerative or related to rotator cuff disease. No evidence for fracture or bone contusion. Glenohumeral joint: Severe degenerative changes. Moderate size joint effusion. AC joint: Mild hypertrophic changes. Fluid in the subacromial bursa related to rotator cuff disease. Rotator cuff: Near complete tear supraspinatus tendon with large full-thickness defect involving the anterior and mid portions. Posterior tendon intact. Remaining rotator cuff intact. Labrum: Severe diffuse degenerative labral tears. Biceps tendon: High-grade partial tear long head biceps tendon. IMPRESSION: Severe degenerative changes. Diffuse degenerative labral tears. Near complete tear supraspinatus tendon. Reviewed, Interpreted and Dictated by Trudy Can MD Transcribed by Yessica Vasques Authenticated and [facility]
--- OUTSIDE RECORDS SUMMARY | 2025-04-07 08:47 | XMS_ITS | Encounter Summary ---
Author Organization [facility] ([place], [place], [place], [place]) Address [address] [place] [address] Care Team Providers Care Web Marketing Assistant Name Role Phone Unavailable Primary Care Provider Unavailabl e Encounter Details Date Type Department Care Team (Late st Contact Info) Description 05/18/2019 Transcribed Document [facility] [place] [facility] [address] [place] [address] ProviderKinza MD [address] [place] [id number] Social History Tobacco Use Types Packs/Day Years Used Date Smoking Tobacco: Never Assessed Sex and Gender Information Value Date Recorded Sex Assigned at Male 01/14/2022 7:13 PM CDT Legal Sex Male 7:13 PM CDT Gender Identity Male 01/14/2022 7:13 PM CDT Sexual Orientation Not on file documented as of this encounter Miscellaneous Notes * Cerner Conversion Note - Kinza ProviderMD - 05/18/2019 11:25 AM CDT Orthopedic Nurse Navigator Entered On: 05/18/2019 11:26 EDT Performed On: 05/18/2019 11:25 EDT by Carmen Willett RN Orthopedic Nurse Navigator Assessment Does Patient Have a Walker? : Yes Joint Navigator Assessment Note : Phone conversation with patient. Pt wants OP. Carmen Willett RN - 05/18/2019 11:25 EDT documented in this encounter Plan of Treatment Not on file documented as of this encounter Visit Diagnoses Not on filedocumented in this encounter
--- OUTSIDE RECORDS SUMMARY | 2025-04-07 08:47 | XMS_ITS | Encounter Summary ---
Author Organization [employer] ([place], [place], [place], [place]) Address [address] [place] [address] Care Team Providers Care Formulation Scientist Name Role Phone Unavailable Primary Care Provider Unavailabl e Encounter Details Date Type Department Care Team (Late st Contact Info) Description 05/13/2019 Transcribed Document [facility] Family Medicine [address] [place] [address] ProviderKinza MD [address] [place] [address] Social History Tobacco Use Types Packs/Day Years Used Date Smoking Tobacco: Never Assessed Sex and Gender Information Value Date Recorded Sex Assigned at Male 01/14/2022 7:13 PM CDT Legal Sex Male 7:13 PM CDT Gender Identity Male 01/14/2022 7:13 PM CDT Sexual Orientation Not on file documented as of this encounter Miscellaneous Notes * Cerner Conversion Note - Kinza ProviderMD - 05/13/2019 9:45 AM CDT Patient: ANTONI WADDELL V Age: 64 Years Sex: Male : 1955 Chief Complaint Right Knee Pain Primary Care Provider Juan Isabel History of Present Illness This patient is a pleasant 64 yo WM who presents with right knee pain. The pain has been going on for 4 years but has gotten progressively worse. He describes it as a sharp pain. It is now to the point that it is affecting his ADLs. He has tried NSAIDs and injections without relief of his pain. He has not fallen. He has not used an assistive device. He saw Dr Kingston who evaluated him and determined that he has severe DJD affecting the right knee. Pt was offered a Right Uni-Compartmental Knee Arthroplasty and agreed to the procedure. Pt denies a h/o DVT/PE. No trouble with anesthesia in the past. Pt has a h/o asthma but no COPD or KARIE. Review of Systems Constitutional: Neg for fevers or chills. Eyes: Neg for blurry vision or change in vision. ENT: Neg for sore throat, ear pain, or dizziness. Cardiac: Neg for chest pain or dyspnea on exertion. Respiratory: Neg for shortness of breath. Gastrointestinal: Neg for nausea, vomiting, diarrhea, or constipation. Musculoskeletal: Pos for right knee pain. Neurologic: Neg for headaches or seizures. Psychiatric: Neg for anxiety and depression. Integumentary: Neg for rash. Vital Signs T: 36.3 ??C HR: 56(Peripheral) RR: 16 BP: 110/57 SpO2: 99% HT: 184.15 cm WT: 79.55 kg BMI: 23.5 Oxygen Settings (Last) Oxygen Therapy Mode: Room air (05/13/19 13:47:00) Physical Exam Constitutional: This is a pleasant 64 yo WM, BMI 23.5, in no acute distress. HEENT: Normocephalic, atraumatic. PEERLA. Extraocular muscles intact. Conjunctiva pink without exudate. Oropharynx pink and moist. Neck supple. No JVD. Cardiac: SI, S2. RRR. No M/R/G. Respiratory: Lungs CTA bilaterally. No wheezes, rales, or rhonchi. Abdomen: Soft, nontender, nondistended. Active bowel sounds. No visible masses. Musculoskeletal: Right Knee ROM 0-135. Integumentary: Skin is pink, warm and dry. No rashes. Neurologic: CN II-XII grossly intact. Psychiatric: Judgment and affect appropriate. Assessment/Plan 1. Preoperative Evaluation- Pt underwent preoperative laboratory workup and diagnostic studies. This included a medical evaluation from his PCP who provided him with clearance to proceed with surgery. 2. Right Knee Pain secondary to DJD- Proceed with surgery as scheduled with Dr Kingston on 05/24/2019. 3. Hypertension- Continue Ramipril. 4. Hypothyroidism- Continue Synthroid. 5. Asthma- Nebs/Inhalers prn. 6. Seasonal Allergies- Continue Singulair. 7. Urinary Incontinence- Continue Myrbetriq. 8. Depression- Continue Sertraline. BASED ON THIS INFORMATION, I FEEL THAT THIS PATIENT SHOULD REQUIRE OUTPATIENT HOSPITALIZATION UNLESS DEEMED OTHERWISE APPROPRIATE BY THE ORTHOPEDIC SURGEON GIVEN THE COMPLEXITY OF THE OPERATION. THIS PATIENT WILL BE A GREAT FAST TRACK CANDIDATE. 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 Home Medications (11) Active Advair Diskus 250 mcg-50 mcg inhalation powder 1 Puff, Inhalation, BID Fish Oil 1,200 mg, Oral, Daily Glucosamine & Chondroitin with MSM 1500 mg/1200 mg, Oral, Daily levothyroxine 50 mcg, Oral, Daily montelukast 10 mg, Oral, Daily Myrbetriq 50 mg, Oral, Daily ramipril 2.5 mg, Oral, Daily resveratrol 300 mg, Oral, Daily sertraline 100 mg, Oral, Daily triple action joint health 1 Tab, Oral, Daily Vitamin D3 5,000 Int Units, Oral, Daily Allergies No Known Allergies Social History Alcohol Alcohol Use History Yes. # Drinks/Day: 1. Use in Last 12 Months: Yes. Alcohol Use Frequency Weekly. Substance Abuse Drug Use Hx: No. Use in Last 12 Months: No. Tobacco Never (less than 100 in lifetime) Smoking Status. Never Smokeless Tobacco Status. Family History Pt mother with Dementia at 90. Pt father from CAD 72. Diagnostic Results EKG- Sinus Richard, 54 CXR- Hyperinflation c/w COPD, NAD Lab Results Test Name Test Result Date/Time Sodium Level 140 mmol/L 05/13/2019 13:54 EDT Potassium Level 4.8 mmol/L 05/13/2019 13:54 EDT Chloride Level 106 mmol/L 05/13/2019 13:54 EDT Carbon Dioxide Level 29 mmol/L 05/13/2019 13:54 EDT Anion Gap 10 05/13/2019 13:54 EDT Glucose Level 68 mg/dL (Low) 05/13/2019 13:54 EDT Blood Urea Nitrogen 25 mg/dL (High) 05/13/2019 13:54 EDT Creatinine Level 1.07 mg/dL 05/13/2019 13:54 EDT eGFR >60 mL/min/1.73m2 05/13/2019 13:54 EDT eGFR NonAfrican >60 mL/min/1.73m2 05/13/2019 13:54 EDT Bun/Creatinine 23.4 (High) 05/13/2019 13:54 EDT Calcium Level 9.0 mg/dL 05/13/2019 13:54 EDT Protein Total 7.3 Gram/dL 05/13/2019 13:54 EDT Albumin Level 3.8 Gram/dL 05/13/2019 13:54 EDT Globulin 3.5 Gram/dL 05/13/2019 13:54 EDT A/G Ratio 1.1 05/13/2019 13:54 EDT Bilirubin Total 0.5 mg/dL 05/13/2019 13:54 EDT Alk Phos 74 Units/Liter 05/13/2019 13:54 EDT AST 27 Units/Liter 05/13/2019 13:54 EDT ALT 31 Units/Liter 05/13/2019 13:54 EDT Prealbumin 30.1 mg/dL 05/13/2019 13:54 EDT WBCs- 8.0 Hbg- 14.5 Hct- 45.5 Plts- 225 Hbg A1C- 5.3 PT- 10.4 INR- 1.0 PTT- 27.6 UA is neg for nitrites and LE documented in this encounter Plan of Treatment Not on file documented as of this encounter Visit Diagnoses Not on filedocumented in this encounter
--- OUTSIDE RECORDS SUMMARY | 2025-04-07 08:47 | XMS_ITS | Encounter Summary ---
Author Organization [employer] ([place], [place], [place], [place]) Address [address] [place] [address] Care Team Providers Care Hr Director Name Role Phone Unavailable Primary Care Provider Unavailabl e Encounter Details Date Type Department Care Team (Late st Contact Info) Description 05/24/2019 Transcribed Document [facility] Family Medicine [address] [place] [address] ProviderKinza MD [address], [place] [id number] Social History Tobacco Use Types Packs/Day Years Used Date Smoking Tobacco: Never Assessed Sex and Gender Information Value Date Recorded Sex Assigned at Male 01/14/2022 7:13 PM CDT Legal Sex Male 7:13 PM CDT Gender Identity Male 01/14/2022 7:13 PM CDT Sexual Orientation Not on file documented as of this encounter Miscellaneous Notes * Cerner Conversion Note - Historical ProviderMD - 05/24/2019 5:17 PM GLASS CLEANER Nursing Discharge Summary Entered On: 05/24/2019 17:18 EST Performed On: 05/24/2019 17:17 EST by ADRIAN TERAN RN-Charge Discharge Documentation Patient Disposition, General : Discharge Discharge To : Home with ambulatory/outpatient follow-up Mode Of Departure, General Discharge : Private vehicle Accompanied By, Discharge : Care provider IV Discontinued : Yes Personal Belongings With Patient : Yes Prescriptions Given to Patient : Yes Discharge Instructions Reviewed With, Opportunity For Questions Given : Patient Patient Education Completed : Yes Teaching Method : Explanation Teaching Evaluation : Verbalizes understanding ADRIAN TERAN, RN-Charge - 05/24/2019 17:17 EST Electronically signed by Yakov [facility] Conversion Active Directory Specialist Cerner at 11/04/2022 3:03 PM CDT documented in this encounter Plan of Treatment Not on file documented as of this encounter Visit Diagnoses Not on filedocumented in this encounter
--- OUTSIDE RECORDS SUMMARY | 2025-04-07 08:47 | XMS_ITS | Encounter Summary ---
Author Organization [employer] ([place], [place], [place], [place]) Address [address] [place] [address] Care Team Providers Care Wharf Builder Name Role Phone Unavailable Primary Care Provider Unavailabl e Encounter Details Date Type Department Care Team (Late st Contact Info) Description 05/13/2019 Transcribed Document [facility] Family Medicine [address] [place] [address] ProviderKinza MD [address] [place] [address] Social History Tobacco Use Types Packs/Day Years Used Date Smoking Tobacco: Never Assessed Sex and Gender Information Value Date Recorded Sex Assigned at Male 01/14/2022 7:13 PM CDT Legal Sex Male 7:13 PM CDT Gender Identity Male 01/14/2022 7:13 PM CDT Sexual Orientation Not on file documented as of this encounter Miscellaneous Notes * Cerner Conversion Note - Historical ProviderMD - 05/13/2019 1:47 PM CDT PAT Adult Entered On: 05/13/2019 13:54 EDT Performed On: 05/13/2019 13:47 EDT by Mally Scott Rn Vital Measurements Temperature Source : Temporal artery scanning Temperature Mode : Fahrenheit Temperature, Fahrenheit : 97.3 Deg F Clinical Temperature, C : 36.3 Deg C Peripheral Pulse Rate : 56 bpm (LOW) Respiratory Rate : 16 Breaths/Min Systolic Blood Pressure : 110 mmHg Diastolic Blood Pressure : 57 mmHg (LOW) Oxygen Saturation : 99 % Oxygen Therapy Mode : Room air Mally Scott Rn - 05/13/2019 13:47 EDT Height and Weight, Clinical Dosing Height Source : Stated Height Entry Format : [place] Height, Feet : 6 ft(Converted to: 183 cm, 72 Inch) Height, Inches : 0.5 Inch(Converted to: 0 ft 1 Inch, 1.27 cm) Clinical Height : 184.15 cm Weight Source : Standing scale Weight Entry Format : [place] Clinical Dosing Weight : 79.55 kg Weight, Pounds : 175 lb Body Surface Area (BSA) : 2.02 m2 Body Mass Index : 23.5 kg/m2 [place] Body Weight : 78 kg Mally Scott Rn - 05/13/2019 13:47 EDT Health Histories Smoking Status : Never (less than 100 in lifetime; none in last 30 days) Smokeless Tobacco Status : Never Mally Scott Rn - 05/13/2019 13:47 EDT Social History (As Of: 05/13/2019 13:54:22 EDT) Tobacco: Never (less than 100 in lifetime) Smoking Status. Never Smokeless Tobacco Status. (Last Updated: 05/13/2019 13:44:47 EDT by Mally Scott Rn) Alcohol: Alcohol Use History Yes. # Drinks/Day: 1. Use in Last 12 Months: Yes. Alcohol Use Frequency Weekly. (Last Updated: 05/13/2019 13:45:06 EDT by Mally Scott Rn) Substance Abuse: Drug Use Hx: No. Use in Last 12 Months: No. (Last Updated: 05/13/2019 13:45:12 EDT by Mally Scott Rn) Infectious Disease History Infectious Disease History : Chicken pox/Shingles, Influenza Isolation Needed : Standard Fever/Chills Last 48 Hours : No Travel To Regions with Travel Advisories : No Travel Outside [place] Within Last 30 Days : No Contact With Traveler to Advisory Region : No Tuberculosis Symptoms : None Mally Scott Rn - 05/13/2019 13:47 EDT Anesthesia/Transfusion History Family History of Anesthesia Reaction : Prior transfusion without reaction Transfusion History : Prior anesthesia reaction Type of Anesthesia Reaction : Excessive somnolence Family History of Anesthesia Reaction : None Mally Scott Rn - 05/13/2019 13:47 EDT Advance Directive Patient has Advance Directive *Q : No, patient refuses Advance Directive information Mally Scott Rn - 05/13/2019 13:47 EDT Psychosocial History Do You Have a History of the Following? : Depression Currently in Unsafe Situation : No Tried to Harm Yourself in the Past? : No Thoughts of Harming/Killing Yourself : No Mally Scott Rn - 05/13/2019 13:47 EDT Teaching/Learning Assessment Barriers To Learning : None evident Individuals Taught : Patient Readiness to Learn : Cooperative Readiness to Learn : Explanation, Printed materials Learning Style Preferences Patient : Printed materials, Verbal explanation Mally Scott Rn - 05/13/2019 13:47 EDT Education Topics, Periop Preadmission Perioperative Education Grid Arrival Time/Place : Verbalizes understanding CHG Preoperative Bathing/Cloths : Verbalizes understanding NPO Status/Directions : Verbalizes understanding Preprocedure Preparations : Verbalizes understanding Preprocedure Tests/Labs : Verbalizes understanding Responsible Adult : Verbalizes understanding Take/Hold Medications Pre-Procedure : Verbalizes understanding Mally Scott Rn - 05/13/2019 13:47 EDT General Info Arrived From : Home Mode of Arrival on Unit : Ambulatory Legal Guardian : Unaccompanied Want Family/Rep/Phys Notified of Admit : No Emergency Contact #1 : Oh Emergency Contact #1 Emergency Contact #1 Relationship : Emergency Contact #2 : . Emergency Contact #2 Phone Number : . Emergency Contact #2 Relationship : . Information Obtained From : Patient Primary Language : Korean Preferred Communication Mode : Verbal Communication Barrier : None Mally Scott Rn - 05/13/2019 13:47 EDT To Scale To Sensory Perception : Slightly limited To Moisture : Rarely moist To Activity : Walks frequently To Mobility : Slightly limited To Nutrition : Adequate To Friction and Shear : No apparent problem To Score : 20 Mally Scott Rn - 05/13/2019 13:47 EDT Sleep Apnea Risk Assmt Hx of Obstructive Sleep Apnea Diagnosis : No Snore Loudly : No Tired, Fatigued, or Sleepy During Day : No Observed Stopping Breathing During Sleep : No Have/Are Being Treated for Hypertension : Yes BMI Greater Than 35 kg/m2 : No Age over 50 Years Old : Yes Neck Circumference Greater Than 40 cm : No Gender Male : Yes STOP-BANG Sleep Apnea Risk Level Score : 3 Mally Scott Rn - 05/13/2019 13:47 EDT documented in this encounter Plan of Treatment Not on file documented as of this encounter Visit Diagnoses Not on filedocumented in this encounter
--- OUTSIDE RECORDS SUMMARY | 2025-04-07 08:47 | XMS_ITS | Clinical Summary ---
Author Organization [facility] Address [address] [place] [address] Care Team Providers Care Chicken Cutter Name Role Phone Zaire Abernathy MD Primary Care Provider [phone] Social History Tobacco Use Types Packs/Day Years Used Date Smoking Tobacco: Never Assessed Food Insecurities Answer Date Recorded Worried about running out of food Not on file 08/10/2023 Food Bought Not on file 08/10/2023 Housing/Utilities Answer Date Recorded Worried about losing home Not on file 2023 Stayed outside house Not on file 08/10/2023 Unable to get utilities Not on file 08/10/19 24 Interpersonal Safety Answer Date Record ed Feel physically or emotionally unsafe where curr ently live Not on file 08/10/2023 Harm by anyone Not on file 08/10/2023 Emotionally Harmed Not on file 08/10/2023 Transportation Answer Date Recorded Worried about transportation Not on file Utilities Answer Date Recorded Worried about losing home Not on file 2023 Stayed outside house Not on file 11/22/2023 Unable to get utilities Not on file 11/22/19 24 Sex and Gender Information Value Date Recorded Sex Assigned at Not on file Legal Sex Male 9:53 PM EDT Gender Identity Not on file Sexual Orientation Not on file Plan of Treatment Health Maintenance Due Date Last Done Comments Hepatitis C Screening 1955 DTap,Tdap,and Td (1 - Tdap) 1966 Colonoscopy 2000 PSA YEARLY 2005 Pneumococcal 50+ (1 of 1 - PCV) 2005 Shingrix (#1) 2005 Influenza Vaccine (#1) 2025 RSV Vaccine (60+ or ) (1 - 1-dose 75+ series) 2030 HPV Aged Out No longer eligi ble based on patient's age to complete this topic Meningococcal conjugate eagle nt 4 (MCV4) Aged Out No longer eligible b ased on patient's age to complete this topic RSV Immunization (<20 months) Aged Out No longer eligible based on patient's age to complete this topic Insurance MEDICARE on file [facility] Care Teams Chicken Cutter Relationship Specialty Start Date End Date Zaire Abernathy MD PCP - General Internal Medicine 07/09/21
--- OUTSIDE RECORDS SUMMARY | 2025-04-07 08:47 | XMS_ITS | Clinical Summary ---
Author Organization [facility] Address [address] [place] [address] Care Team Providers Care Wig Dresser Name Role Phone Zaire Abernathy MD Primary Care Provider [phone] Allergies No known active allergies Medications azelastine (Astelin) 0.1 % nasal spray 2 Active sertraline (Zoloft) 100 MG tablet 2 Active ramipril (Altace) 2.5 MG capsule 2 Active montelukast (Singulair) 10 MG tablet 2 Active Synthroid 50 MCG tablet 2 Active fluticasone-sujit meterol (Advair Diskus) 250-50 MCG/ACT diskus inhaler 2 Active ASPIRIN 81 PO aspirin 81 mg tablet Daily Active Multiple Vitamin (MULTI-VITAMIN DAILY PO) Multi Vitamin Active RESVERATROL PO resveratrol Act patt GLUCOSAMINE-CHO NDROIT-CALCIUM PO Glucosamine-Ernie drotin Active mirabegron ER (Myrbetriq) 50 MG tablet Take 1 tablet (50 mg) by mouth 1 (one) time per week. Active losartan (Cozaar) 50 MG tablet Take 1 tablet by mouth daily. 5 Active Makanda-3 Fatty Acids (Super DHA Gems) 1000 MG capsule Take 500 mg by mouth. Active testosterone cypionate (Depo-Testoster one) 100 MG/ML injection 5 Active albuterol 108 (90 Base) MCG/ACT inhaler 5 Active cholecalciferol (Vitamin D3) 50 MCG (1999 UT) tablet 2 Active armodafinil (Nuvigil) 150 MG tablet TAKE ONE TABLET BY MOUTH EVERY DAY FOR hypersomnia/narc olepsy like symptoms 4 Active magnesium 30 MG tablet Take 1 tablet by mouth 2 times a day. 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 [address] [place] [phone] Yuri Holland MD PVD (posterior vitreous detachment), left eye (Primary Dx); Myopia of left eye; Regular astigmatism of left eye; Presbyopia 02/08/2025 Travel from Last 3 Months Family History Medical History Relation Name Comments Aortic aneurysm Father El Cardiac disorder Father El Conversions - Other Father El renal ar sarah stenosis Heart attack Father El Hypertension Father El Stroke Father El Transient ischemic attack Father El Alzheimer's disease Mother Conversions - Other Mother Cancer o f vocal cord Relation Name Status Comments Father El Mother Social History Tobacco Use Types Packs/Day Years Used Date Smoking Tobacco: Never Passive Smoke Exposure: Never Smokeless Tobacco: Never Tobacco Cessation:Counseling Given: Not Answered Sex and Gender Information Value Date Recorded Sex Assigned at Male 01/07/2022 3:07 PM EDT Legal Sex Male 7:28 PM EDT Gender Identity Male 01/07/2022 3:07 PM EDT Sexual Orientation Straight 01/07/2022 3: 07 PM EDT Last Filed Vital Signs Vital Sign Reading Time Taken Comments Blood Pressure 109/69 05/05/2018 3:26 PM EDT Pulse 64 05/05/2018 3:26 PM EDT Temperature - - Respiratory Rate - - Oxygen Saturation - - Inhaled Oxygen Concentration - - Weight 79.4 kg (175 lb) 05/05/2018 3:26 PM EDT Height 185.4 cm (6' 1 ) 05/05/2018 3:26 PM EDT Body Mass Index 23.09 05/05/2018 3:26 PM EDT Plan of Treatment Upcoming Encounters Date Type Department Care Team (Late st Contact Info) Description 03/07/2026 10:30 AM EDT Office Visit [facility] [address] [place] [address] Yuri Holland MD [address] [phone] Health Maintenance Due Date Last Done Comments [facility]-Depression Screening 1955 [facility]-Hepatitis C Screening 1955 [facility]-Medicare Annual Wellness (AWV) 1955 [facility]-Infant/Child/Adol SDOH Screenings 1955 [facility]- SDOH Screenings 1973 [facility]-Adult SDOH Screenings 1973 [facility]-DTaP,Tdap,and Td Vaccine s (1 - Tdap) 1974 CT Colonography 2000 Colonoscopy 2000 FIT-DNA 2000 FIT 2000 FOBT 2000 Sigmoidoscopy 2000 [facility]-Colorectal Cancer Screening 2000 [facility]-Zoster Vaccines (1 of 2) 2005 [facility]-RSV Vaccine: 60+ Years o r (1 - Risk 60-74 years 1-dose series) 2015 [facility]-Pneumococcal Vaccine: 50 + Years (2 of 2 - PCV) 09/20/2021 09/20/2020 [id number] Vaccine ( season) 2025 06/20/2021, 08/31/2020, 07/31/2020 [facility]-Influenza Vaccine (#1) 03/20/202504/06, 05/21/2015 HPV Vaccines Aged Out No longer eligi ble based on patient's age to complete this topic [facility]-HIB Vaccines Aged Out No longer e ligible based on patient's age to complete this topic [facility]-Hepatitis A Vaccines Aged Out No longer eligible based on patient's age to complete this topic [facility]-IPV Vaccines Aged Out No longer e ligible based on patient's age to complete this topic [facility]-Rotavirus Vaccines Aged Out No lo nger eligible based on patient's age to complete this topic Insurance [employer] [id number] [place] [address] [facility] Care Teams Wig Dresser Relationship Specialty Start Date End Date Zaire Abernathy MD [address] [place] [address] PCP - General Internal Medicine 01/12/24
--- OUTSIDE RECORDS SUMMARY | 2025-04-07 08:47 | XMS_ITS | Encounter Summary ---
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 SUPERVISOR Pre Procedure Adult Entered On: 05/24/2019 15:14 EST Performed On: 05/24/2019 15:11 EST by ADRIAN TERAN RN-Charge Height and Weight, Clinical Dosing Height Source : Stated Height Entry Format : [place] Height, Feet : 6 ft(Converted to: 183 cm, 72 Inch) Height, Inches : 0.5 Inch(Converted to: 0 ft 1 Inch, 1.27 cm) Clinical Height : 184.15 cm Weight Source : Standing scale Weight Entry Format : [place] Clinical Dosing Weight : 79.55 kg Weight, Pounds : 175 lb Body Surface Area (BSA) : 2.02 m2 Body Mass Index : 23.5 kg/m2 [place] Body Weight : 78 kg ADRIAN TERAN RN-Charge - 05/24/2019 15:11 EST Health Histories Smoking Status : Never (less than 100 in lifetime; none in last 30 days) Smokeless Tobacco Status : Never ADRIAN TERAN RN-Charge - 05/24/2019 15:11 EST Social History (As Of: 05/24/2019 15:14:36 EST) Tobacco: Never (less than 100 in lifetime) [...] With Traveler to Advisory Region : No Exposure to Contagious Illness : No Tuberculosis Symptoms : None ADRIAN TERAN RN-Charge - 05/24/2019 15:11 EST Anesthesia/Transfusion History Family History of Anesthesia Reaction : Prior transfusion without reaction Blood Transfusion Acceptable to Patient : Yes Transfusion History : Prior anesthesia reaction Type of Anesthesia Reaction : Excessive somnolence Family History of Anesthesia Reaction : None ADRIAN TERAN RN-Charge - 05/24/2019 15:11 EST Functional Assessment Living Situation : Home Patient Lives With : Spouse Persons Assisting Patient at Home : Spouse Current Daily Living Assistance : None Sensory Deficits : Blind, right eye Mobility Assistance Prior to Admission : Independent CASTELLANOS Hx Falls Immediate/Within 3 Months : No Current Home Treatments : None Home Equipment : None Professional Skilled Services : None Special Services and Community Resources : None ADRIAN TERAN RN-Charge - 05/24/2019 15:11 EST Psychosocial History Does Someone Depend on You for Care? : No Chronic/Terminal Illness w/Freq Visits : No Do You Have a History of the Following? : Depression Currently in Unsafe Situation : No Do You Have a Support System? : Yes Tried to Harm Yourself in the Past? : No Thoughts of Harming/Killing Yourself : No ADRIAN TERAN RN-Charge - 05/24/2019 15:11 EST Advance Directive Patient has Advance Directive *Q : No, patient refuses Advance Directive information ADRIAN TERAN RN-Charge - 05/24/2019 15:11 EST Spiritual/Cultural Needs Significant Loss/Crisis in Past 3 Years : No Significant Distress/Coping/Need Support : No Any Spiritual/Cultural Needs or Requests : No ADRIAN TERAN RN-Charge - 05/24/2019 15:11 EST Teaching/Learning Assessment Barriers To Learning : None evident Individuals Taught : Patient Readiness to Learn : Cooperative Baseline Knowledge of Topic : Good Readiness to Learn : Explanation, Printed materials Learning Style Preferences Patient : Printed materials, Verbal explanation Learning Style Preferences Family : Printed materials, Verbal explanation ADRIAN TERAN RN-Charge - 05/24/2019 15:11 EST Education Topics, Periop Preadmission Perioperative Education Grid Arrival Time/Place : Verbalizes understanding CAUTI : Verbalizes understanding Central Lines : Verbalizes understanding CHG Preoperative Bathing/Cloths : Verbalizes understanding Falls : Verbalizes understanding Incentive Spirometry : Verbalizes understanding Infection Control : Verbalizes understanding IV's : Verbalizes understanding NPO Status/Directions : Verbalizes understanding Pain Management : Verbalizes understanding Postoperative Care Preparations : Verbalizes understanding Preprocedure Preparations : Verbalizes understanding Preprocedure Tests/Labs : Verbalizes understanding Remove Body Piercings : Verbalizes understanding Responsible Adult : Verbalizes understanding SNE's : Verbalizes understanding Take/Hold Medications Pre-Procedure : Verbalizes understanding Other : Verbalizes understanding ADRIAN ETRAN RN-Charge - 05/24/2019 15:11 EST General Info Arrived From : Home Mode of Arrival on Unit : Ambulatory Legal Guardian : Spouse, Unaccompanied Want Family/Rep/Phys Notified of Admit : No Emergency Contact #1 : Oh Emergency Contact #1 Emergency Contact #1 Relationship : Emergency Contact #2 : . Emergency Contact #2 Phone Number : . Emergency Contact #2 Relationship : . Information Obtained From : Patient Primary Language : [place]ese Preferred Communication Mode : Verbal Communication Barrier : None Currently Lactating : N/A Status : N/A ADRIAN TERAN RN-Charge - 05/24/2019 15:11 EST Sleep Apnea Risk Assmt Hx of Obstructive [...] Sleep Apnea Risk Level Score : 3 ADRIAN TERAN RN-Charge - 05/24/2019 15:11 EST To Scale To Sensory Perception : No impairment To Moisture : Rarely moist To Activity : Walks occasionally To Mobility : Slightly limited To Nutrition : Adequate To Friction and Shear : No apparent problem To Score : 20 ADRIAN TERAN RN-Charge - 05/24/2019 15:11 EST Oxygen Therapy Oxygen Therapy Mode : Room air ADRIAN TERAN RN-Charge - 05/24/2019 15:11 EST Pain Assessment Pain Assessment : Initial assessment Pain Scale Used : 0-10 Scale ADRIAN TERAN RN-Charge - 05/24/2019 15:11 EST Fall Risk Scales ABCs Fall Injury Risk Identification : Bones, Surgery ABC Fall Injury Risk : Moderate to high injury risk Injury Moderate to High Risk Interventions : Bed alarm on, Chair alarm on, High Risk for Fall Injury sign in place per policy, Patient room close to nurses station, Specialty low bed, Supervise toileting as indicated, Transport methods appropriate to patient, Wrist band (fall risk) on per policy CASTELLANOS Hx Falls Immediate/Within 3 Months : No Castellanos Secondary Diagnosis : No CASTELLANOS Use of Ambulatory Aid : Bed rest/Nurse assist CASTELLANOS IV Therapy or IV Access : Yes Castellanos Gait/Transferring : Weak Castellanos Mental Status : Oriented to own ability Castellanos Fall Risk Score : 30 CASTELLANOS Fall Scale Risk Level : 46 or > High Risk [place] Fall Interventions : Adequate lighting, Assistive devices within reach, Bed in low position, Call device within reach, Fall prevention handout/education per facility policy, Frequent orientation to call device, Frequent orientation to surroundings, Hourly comfort/safety rounds, Non-slip footwear, Personal items within reach, Reinforced to call for assistance before getting out of bed, Room free of clutter/spills, Upper side-rails up, Wheels locked, Wires/Cords secured ADRIAN TERAN RN-Charge - 05/24/2019 15:11 EST Fall Risk Education Grid Alarms : Verbalizes understanding Assistive Equipment Use : Verbalizes understanding Bed Height/Stabilization : Verbalizes understanding Call light use : Verbalizes understanding Door Open : Verbalizes understanding Environmental Management : Verbalizes understanding Eyeglasses Use : Verbalizes understanding Fall Community Resources : Verbalizes understanding Fall Contract/Letter : Verbalizes understanding Fall Prevention in the Home : Verbalizes understanding Fall Prevention Protocol : Verbalizes understanding Hearing Aid Use : Verbalizes understanding Home Risk Assessment : Verbalizes understanding Need Constant Observation : Verbalizes understanding Night Light Use : Verbalizes understanding Nonskid Footwear Use : Verbalizes understanding Notification of Staff When Leaving : Verbalizes understanding Orthostatic Hypotension Precautions : Verbalizes understanding Personal Article Availability : Verbalizes understanding Prevention Responsibility Family : Verbalizes understanding Prevention Responsibility Patient : Verbalizes understanding Risk Alert Methods : Verbalizes understanding Risk Factors : Verbalizes understanding Safety Aids : Verbalizes understanding Siderails use/risks : Verbalizes understanding Special Assistive Devices : Verbalizes understanding Staff Responsiveness : Verbalizes understanding Symptom Identification & Action Plan *Q : Verbalizes understanding Symptom Reporting : Verbalizes understanding Toileting Schedule : Verbalizes understanding Transfer/Mobility Techniques : Verbalizes understanding Urinal/Bedpan Availability : Verbalizes understanding Wait for Assistance : Verbalizes understanding Wheelchair Safety : Verbalizes understanding ADRIAN TERAN RN-Charge - 05/24/2019 15:11 EST Barriers to Learning : None evident Learning Style Preferences Family : Printed materials, Verbal explanation Learning Style Preferences Patient : Printed materials, Verbal explanation Fall Risk Scale Calc Temp : 1 ADRIAN TERAN RN-Charge - 05/24/2019 15:11 EST Education Topics, Day of Surgery DayofSurgery Education Grid Anesthesia/Sedation : Verbalizes understanding CAUTI : Verbalizes understanding Central Lines : Verbalizes understanding CHG Preoperative Bathing/Cloths : Verbalizes understanding Fall Risks : Verbalizes understanding Family Instructions : Verbalizes understanding Incentive Spirometry : Verbalizes understanding Infection Control : Verbalizes understanding Infection Risks : Verbalizes understanding IV's : Verbalizes understanding Medication Instructions : Verbalizes understanding Pain Management : Verbalizes understanding Plan of Care : Verbalizes understanding Respiratory Care : Verbalizes understanding Responsible Adult : Verbalizes understanding SNE's : Verbalizes understanding Tubes/Drains : Verbalizes understanding Other : Verbalizes understanding ADRIAN TERAN RN-Charge - 05/24/2019 15:11 EST Valuables and Belongings Valuables and Belongings : Clothing, Jewelry, Personal devices Clothing : Common streetwear Clothing Disposition : With family Personal Device Disposition : With family Jewelry : Ring, Watch Jewelry Disposition : With family Personal Devices : Glasses ADRIAN TERAN RN-Charge - 05/24/2019 15:11 EST Pain Scale Intensity : 0 ADRIAN TERAN RN-Charge - 05/24/2019 15:11 EST Image 4 - Images currently included in the form version of this document have not been included in the text rendition version of the form. Barbara Coma [place] Best Motor Response : Obey commands Barbara Best Verbal Response : Oriented [place] Eye Opening Response : Spontaneous [place] Coma Score : 15 ADRIAN TERAN RN-Charge - 05/24/2019 15:11 EST documented in this encounter Plan of Treatment Not on file documented as of this encounter Visit Diagnoses Not on filedocumented in this encounter
--- OUTSIDE RECORDS SUMMARY | 2025-04-07 08:47 | XMS_ITS | Encounter Summary ---
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 Name Role Phone Unavailable Primary Care Provider Unavailabl e Encounter Details Date Type Department Care Team (Late st Contact Info) Description 05/17/2019 Transcribed Document [facility] [place] [address] [place] [address] ProviderKinza MD [address] [place] [address] Social History Tobacco Use Types Packs/Day Years Used Date Smoking Tobacco: Never Assessed Sex and Gender Information Value Date Recorded Sex Assigned at Male 01/14/2022 7:13 PM CDT Legal Sex Male 7:13 PM CDT Gender Identity Male 01/14/2022 7:13 PM CDT Sexual Orientation Not on file documented as of this encounter Miscellaneous Notes * Cerner Conversion Note - Kinza Serna MD - 05/17/2019 5:47 AM CDT Orthopedic Nurse Navigator Entered On: 05/17/2019 5:49 EDT Performed On: 05/17/2019 5:47 EDT by Carmen Willett RN Orthopedic Nurse Navigator Assessment Type of Surgery : Total Knee Replacement, Left Does Patient Have a Walker? : Yes Patient Completed RAPT Score : 12 Joint Navigator Assessment Note : According to the RAPT Score, patient can be discharged directly home. Pt Carmen Graham RN - 05/17/2019 5:47 EDT JR. EB Knee Survey 1. How severe is your knee stiffness after first wakening in the morning? : Mild 2. Twisting/pivoting on your knee : Moderate 3. Straightening knee fully : None 4. Going up or down stairs : Moderate 5. Standing upright : None 6. Rising from sitting : None 7. Bending to floor/apple picker an object : None EB JACKMAN Raw Score (ref) : 5 Carmen Willett RN - 05/17/2019 5:47 EDT PROMIS Global Health Scale In general, would you say your health is: : Very good In general, would you say your quality of life is: : Very good In general, how would you rate your physical health? : Very good In general, how would you rate your mental health, including your mood and your ability to think? : Very good In general, how would you rate your satisfaction with your social activities and relationships? : Very good In general, please rate how well you carry out your usual social activities and roles. (This includes activities at home, at work and in your community, and responsibilities as a parent, child, spouse, employee, friend, etc.) : Very good To what extent are you able to carry out your everyday physical activities such as walking, climbing stairs, carrying groceries, or moving a chair? : Mostly How often have you been bothered by emotional problems such as feeling anxious, depressed or irritable? : Sometimes How would you rate your fatigue on average? : Moderate How would you rate your pain on average? : 4 Global Physical Health Score (ref) : 14 Global Mental Health Score (ref) : 15 Carmen Willett RN - 05/17/2019 5:47 EDT documented in this encounter Plan of Treatment Not on file documented as of this encounter Visit Diagnoses Not on filedocumented in this encounter
--- OUTSIDE RECORDS SUMMARY | 2025-04-07 08:47 | XMS_ITS | Encounter Summary ---
Author Organization [employer] ([place], [place], [place], [place]) Address [address] [place] [address] Care Team Providers Care Sanitarian Inspector Name Role Phone Unavailable Primary Care Provider Unavailabl e Encounter Details Date Type Department Care Team (Late st Contact Info) Description 05/24/2019 Transcribed Document [facility] [place] Medicine [address] [place] [address] ProviderKinza MD [address] [place] [address] Social History Tobacco Use Types Packs/Day Years Used Date Smoking Tobacco: Never Assessed Sex and Gender Information Value Date Recorded Sex Assigned at Male 01/14/2022 7:13 PM CDT Legal Sex Male 7:13 PM CDT Gender Identity Male 01/14/2022 7:13 PM CDT Sexual Orientation Not on file documented as of this encounter Miscellaneous Notes * [place] Conversion Note - Historical ProviderMD - 05/24/2019 3:46 PM PATHOLOGY TEACHER Final Discharge Planning Entered On: 05/24/2019 15:46 EST Performed On: 05/24/2019 15:46 EST by ROBINSON NEAL Care Management-Donkey Doctor Final Discharge Planning Discharge Arrangements : Patient Post-Acute Information Patient Name: ANTONI WADDELL V Gender: Male : 55 Age: 64 Years No Post-Acute Placement(s) Listed No Post-Acute Service(s) Listed No [place] Referral(s) Listed Patient Offered Choice/Affiliations Explained : Yes Designation of Choice Signed : Yes Discharge To Care Management : Home Health Services (Related/SOC within 3 days)-06 ROBINSON NEAL Care Management-Donkey Doctor - 05/24/2019 15:46 EST documented in this encounter Plan of Treatment Not on file documented as of this encounter Visit Diagnoses Not on filedocumented in this encounter
--- OUTSIDE RECORDS SUMMARY | 2025-04-07 08:47 | XMS_ITS | Encounter Summary ---
Author Organization [employer] ([place], [place], [place], [place]) Address [address] [place] [address] Care Team Providers Care Sales Enablement Lead Name Role Phone Unavailable Primary Care Provider Unavailabl e Encounter Details Date Type Department Care Team (Late st Contact Info) Description 05/11/2019 Transcribed Document [facility] [place] [address] [place] [address] ProviderKinza MD [address] [place] [id number] Social History Tobacco Use Types Packs/Day Years Used Date Smoking Tobacco: Never Assessed Sex and Gender Information Value Date Recorded Sex Assigned at Male 01/14/2022 7:13 PM CDT Legal Sex Male 7:13 PM CDT Gender Identity Male 01/14/2022 7:13 PM CDT Sexual Orientation Not on file documented as of this encounter Miscellaneous Notes * Cerner Conversion Note - Historical ProviderMD - 05/11/2019 9:38 PM CDT Orthopedic Nurse Navigator Entered On: 05/18/2019 8:11 EDT Performed On: 05/11/2019 21:38 EDT by Carmen Willett RN Orthopedic Nurse Navigator Assessment Attended Joint Academy : Yes Joint AcademyType : Online Joint Academy Date : 05/11/2019 EDT Type of Surgery : Partial Knee Replacement, Left Joint Navigator Assessment Note : Patient viewed the online version of Joint Academy prior to surgery. Carmen Willett RN - 05/18/2019 8:11 EDT documented in this encounter Plan of Treatment Not on file documented as of this encounter Visit Diagnoses Not on filedocumented in this encounter
--- OUTSIDE RECORDS SUMMARY | 2025-04-07 08:47 | XMS_ITS | Encounter Summary ---
Author Organization [employer] ([place], [place], [place], [place]) Address [address] [place] [address] Care Team Providers Care Costume Director Name Role Phone Unavailable Primary Care Provider Unavailabl e Encounter Details Date Type Department Care Team (Late st Contact Info) Description 05/24/2019 Transcribed Document [facility] [place] Family Medicine [address] [place] [address] ProviderKinza MD [address] [place] [address] Social History Tobacco Use Types Packs/Day Years Used Date Smoking Tobacco: Never Assessed Sex and Gender Information Value Date Recorded Sex Assigned at Male 01/14/2022 7:13 PM CDT Legal Sex Male 7:13 PM CDT Gender Identity Male 01/14/2022 7:13 PM CDT Sexual Orientation Not on file documented as of this encounter Miscellaneous Notes * Cerner Conversion Note - Kinza ProviderMD - 05/24/2019 2:07 PM SUPERVISOR LIQUEFACTION Evaluation, Physical Therapy Entered On: 05/24/2019 15:47 EST Performed On: 05/24/2019 15:20 EST by MALCOM STEARNS, PT General Information, PT Visit Type, PT : Initial evaluation Patient Orders : Order Date Order Ordering 05/24/2019 14:08 PT Evaluation and Treatment Ordered By: YESSENIA SPEARS MD-ORT 05/24/2019 14:08 PT Treatment Instructions Ordered By: YESSENIA SPEARS MD-ORT 05/24/2019 14:08 PT Treatment Instructions Ordered By: YESSENIA SPEARS MD-ORT 05/24/2019 14:08 PT Treatment Instructions Ordered By: YESSENIA SPEARS MD-ORT 05/24/2019 14:08 PT Treatment Instructions Ordered By: YESSENIA SPEARS MD-ORT 05/24/2019 14:08 PT Treatment Instructions Ordered By: YESSENIA SPEARS MD-ORT 05/24/2019 14:08 PT Treatment Instructions Ordered By: YESSENIA SPEARS MD-ORT Active Diagnoses : No Qualifying Diagnoses Therapy Diagnosis, PT : aftercare following R [facility] Admission Date : 05/24/2019 04:46 Co-treated by, PT : Occupational Therapist Personal Devices : Personal Devices Glasses Assistive Devices : Assistive Devices No Devices Recorded Precautions in Place : Fall prevention measures, Fall prevention measures, high risk MALCOM STEARNS, PT - 05/24/2019 15:20 EST General Status Patient Received Status : Supine in bed, Bed alarm activated, Other: Ice and SCDs applied. Treatment Start Time : 05/24/2019 14:40 EST Patient Left Status : Up in chair, Chair alarm activated, RN/PCT informed, Family/Visitors at bedside, Communication board completed, All needs met and within reach, Other: Ice and SCDs applied. RN/PCT Informed Comment : RN and patient consenting to treatment this date. Treatment End Time : 05/24/2019 15:20 EST Treatment Time : 40 Minute(s) MALCOM STEARNS, PT - 05/24/2019 15:20 EST History and Environment Living Situation, Therapy : Home Patient Lives With : Spouse Persons Assisting Patient at Home : Spouse Professional Skilled Services : None Persons Providing Information : Patient Home Setup : Basement, One story Stairs : Yes Stair Location(s) : Inside, Outside Inside Stairs, Number of Steps : 14 Stairs Inside Comment : Pt reports he can stay on main floor Outside Stairs, Number of Steps : 2 Railing Outside : Yes Outside Railing Position : Left, going up Prior LOF Assist with ADL Comment : Patient was fully independent without AD prior to surgery. History and Environment Comment, PT : Patient lives with in single story home with 2 steps to enter with left rail. Patient owns and BS. MALCOM STEARNS, PT - 05/24/2019 15:20 EST Upper Extremity Upper Extremity Dominance : Right Right UE Active ROM : WFL Right UE Strength : WFL Left UE Active ROM : WFL Left UE Strength : WFL MALCOM STEARNS, PT - 05/24/2019 15:20 EST Lower Extremity RLE Active ROM : Impaired Right LE Strength : Impaired MALCOM STEARNS, PT - 05/24/2019 15:20 EST RLE ROM Grid Knee Flexion (0-140) Active Assist : 0-100 degrees Comment (Comment: in sitting [MALCOM STEARNS, PT - 05/24/2019 15:20 EST] ) MALCOM STEARNS, PT - 05/24/2019 15:20 EST LLE Active ROM : WFL Left LE Strength : WFL MALCOM STEARNS, PT - 05/24/2019 15:20 EST Right Lower Extremity MMT Ankle Dorsiflexion (0-20) : 5/normal Ankle Plantarflexion (0-45) : 5/normal MALCOM STEARNS, PT - 05/24/2019 15:20 EST Functional Mobility Mobility Grid Bed Roll Left : Rehab Complete independence Bed Scooting : Rehab Complete independence Supine to Sit : Rehab Complete independence Sit to Stand : Supervision/set-up (Comment: with RW [MALCOM STEARNS, PT - 05/24/2019 15:20 EST] ) Bed to Chair : Supervision/set-up (Comment: with RW [MCKINLEYMALCOM MACKEY, PT - 05/24/2019 15:20 EST] ) Chair to Bed : Supervision/set-up (Comment: with RW [MALCOM STEARNS, PT - 05/24/2019 15:20 EST] ) Stand to Sit : Supervision/set-up (Comment: with RW [MALCOM STEARNS, PT - 05/24/2019 15:20 EST] ) Sit to Supine : Rehab Complete independence MALCOM STEARNS, PT - 05/24/2019 15:20 EST AM [facility] Basic Mobility Turning Over in Bed : None Sit Down On/Stand Up From Chair w/ Arms : A little Move Back Lying to Sitting Side of Bed : None Moving To/From a Bed to Chair : A little Need to Walk in Hospital Room : A little Climbing 3-5 Steps with a Railing : A little AM-[facility] Basic Mobility Raw Score : 20 AM-[facility] Basic Mobility Standardized Score : 47.67 AM-[facility] Basic Mobility CMS 0-100% Score : 35.83 % MALCOM STEARNS, PT - 05/24/2019 15:20 EST Image 1 - Images currently included in the form version of this document have not been included in the text rendition version of the form. Gait Training/Assessment, PT Weight Bearing Order Status : WBAT Gait Assistance Level : Supervision Walking Distance : 100 feet Ambulatory Devices : Walker, front wheel Gait Deviations : Yes Gait Training Comment : slow pace, reciprocal pattern, downward gaze, KI on RLE, no LOB noted. Stair(s) Ascend/Descend Training : Yes Number of Stairs : 4 steps Stair Height : 6 inches Stair(s) Assist Devices : Rails, one Stair Assist : Assist, minimal Stair Training Comment : CGA with non-reciprocal pattern and KI on RLE MALCOM STEARNS, PT - 05/24/2019 15:20 EST Neuromuscular Reeducation, PT Balance Comment : Normal sitting balance and Fair standing balance with RW. MALCOM STEARNS, PT - 05/24/2019 15:20 EST Neurological/Sensory Overall Sensory Response : Intact Response to Pain : Intact MALCOM STEARNS, PT - 05/24/2019 15:20 EST Cognition Assessment, PT Orientation : Oriented x 4 MALCOM STEARNS, PT - 05/24/2019 15:20 EST Edu Topics Physical Therapy Education Grid Balance Training : Verbalizes understanding Bed Mobility Training : Verbalizes understanding Caregiver Training : Verbalizes understanding Gait Training : Verbalizes understanding Home Program/Exercises : Verbalizes understanding Home Safety : Verbalizes understanding Role of Physical Therapy : Verbalizes understanding Safety : Verbalizes understanding Stair Training : Verbalizes understanding Transfer Training : Verbalizes understanding Use of Assistive Device : Verbalizes understanding MALCOM TSEARNS, PT - 05/24/2019 15:20 EST Indication Assesessment, PT Physical Therapy Indicated : No Physical Therapy Not Indicated : Other: DC to home today with to assist, HHPT to follow. Interdisciplinary Consultation(s) Needed : No MALCOM STEARNS, PT - 05/24/2019 15:20 EST Plan of Care, PT PT Tx Plan/Goals Established w Patient : No Reason Tx/Plan Not Established W/ Pt PT : Evaluation only. MALCOM STEARNS, PT - 05/24/2019 15:20 EST Treatment Note Subjective Comment : Patient was pleasant and cooperative with treatment this date. Patient's Response to Treatment : No adverse reactions to treatment. Additional Objective Information : See Evaluation. Educated patient on TUBS, Zero Knee, and Polar Care use. Educated patient on ankle pumps, quad sets, and glut sets for blood clot prevention overnight, provided written copy of HEP and Amaral Rules. Educated patient on prone hangs and 4 Amaral Rules. Instruted patient to wear KI with all mobility overnight until assessed by HHPT. Assessment : Patient safe for DC home with to assist, KI on RLE for mobility, HHPT to assess tomorrow. Plan for Treatment : HHPT MALCOM STEARNS, PT - 05/24/2019 15:20 EST Pain Assessment Pain Scaled Used : 0-10 Pain scale Pain Score Pre-Intervention : 0 Pain Score During-Intervention : 0 Pain Score Post-Intervention. : 0 MALCOM STEARNS, PT - 05/24/2019 15:20 EST Image 1 - Images currently included in the form version of this document have not been included in the text rendition version of the form. Anticipated Discharge Needs, OT/PT Anticipated Discharge to : Home, with home health Anticipated Home Equipment : None Anticipated D/C Provider Notified : Nursing MALCOM STEARNS, PT - 05/24/2019 15:[address] [facility] PT Therap. Exercise 15 min : 1 Gait Training Each 15 Min : 1 PT Eval Low Complexity : 1 MALCOM STEARNS, PT - 05/24/2019 15:20 EST documented in this encounter Plan of Treatment Not on file documented as of this encounter Visit Diagnoses Not on filedocumented in this encounter
--- OUTSIDE RECORDS SUMMARY | 2025-04-07 08:47 | XMS_ITS | Encounter Summary ---
Author Organization [employer] ([place], [place], [place], [place]) Address [address] [place] [address] Care Team Providers Care Wood Floor Refinisher Name Role Phone Unavailable Primary Care Provider Unavailabl e Encounter Details Date Type Department Care Team (Late st Contact Info) Description 05/24/2019 Transcribed Document [facility] [place] [address] [place] [address] ProviderKinza MD [address] [place] [address] Social History Tobacco Use Types [...] Conversion Note - Historical ProviderMD - 05/24/2019 3:45 PM SENIOR INDUSTRIAL ENGINEER Initial Discharge Planning Entered On: 05/24/2019 15:45 EST Performed On: 05/24/2019 15:45 EST by ROBINSON NEAL Care Management-Freight Agent Initial Assessment I Previously Documented Living Environment : No qualifying data available. Living Situation : Home Patient Lives With : Spouse Emergency Contact #1 : Oh Emergency Contact #1 Emergency Contact #1 Relationship : Emergency Contact #2 : . Emergency Contact #2 Phone Number : . Emergency Contact #2 Relationship : . ROBINSON NEAL, Care Management-Freight Agent - 05/24/2019 15:45 EST Initial Assessment II Sensory and Motor Deficits : Other: uka Current Home Treatments and Equipment : Bedside commode, Walker ROBINSON NEAL Care Management-Freight Agent - 05/24/2019 15:45 EST Discharge Needs I Anticipated Discharge Date : 05/24/2019 EST Anticipated Discharge To, CM : Home with family care, Home with home health Current Home Treatment/Equipment : Current Home Treatment/Equipment No qualifying data available. Documentation Status Complete : Yes ROBINSON NEAL Care Management-Freight Agent - 05/24/2019 15:45 EST Discharge Needs II Professional Skilled Services : Professional Skilled Services No qualifying data available. Discharge Options Discussed with Patient : Home Health ROBINSON NEAL Care Management-Freight Agent - 05/24/2019 15:45 EST documented in this encounter Plan of Treatment Not on file documented as of this encounter Visit Diagnoses Not on filedocumented in this encounter
--- OUTSIDE RECORDS SUMMARY | 2025-04-07 08:47 | XMS_ITS | Encounter Summary ---
Author Organization [employer] ([place], [place]) Address [address] [place] [address] Care Team Providers Care Booking Police Officer Name Role Phone Unavailable Primary Care Provider Unavailabl e Encounter Details Date Type Department Care Team (Late st Contact Info) Description 05/24/2019 Transcribed Document [facility] [place] Family Medicine [address] [place] [address] ProviderKinza MD [address] [place] [address] Social History Tobacco Use Types [...] Conversion Note - Historical ProviderMD - 05/24/2019 4:00 PM REQUIREMENTS ENGINEER Pain Assessment Entered On: 05/24/2019 18:49 EST Performed On: 05/24/2019 16:27 EST by ADRIAN TERAN RN-Charge Intervention Information: acetaminophen Performed by ADRIAN TERAN RN-Charge on 05/24/2019 15:27:00 EST acetaminophen,1000mg Oral Pain Assessment Pain Assessment : Follow-up assessment Pain Scale Goal : 3 Pain Scale Used : 0-10 Scale ADRIAN TERAN RN-Charge - 05/24/2019 18:49 EST Pain Scale Intensity : 1 ADRIAN TERAN RN-Charge - 05/24/2019 18:49 EST Image 4 - Images currently included in the form version of this document have not been included in the text rendition version of the form. documented in this encounter Plan of Treatment Not on file documented as of this encounter Visit Diagnoses Not on filedocumented in this encounter
--- OUTSIDE RECORDS SUMMARY | 2025-04-07 08:47 | XMS_ITS | Encounter Summary ---
Author Organization [employer] ([place], [place], [place], [place]) Address [address] [place] [address] Care Team Providers Care Nail Kegger Name Role Phone Unavailable Primary Care Provider Unavailabl e Encounter Details Date Type Department Care Team (Late st Contact Info) Description 05/24/2019 Transcribed Document [facility] [place] [address] [place] [address] ProviderKinza MD [address] [place] [address] Social History Tobacco Use Types [...] Conversion Note - Historical ProviderMD - 05/24/2019 5:14 PM SMOKE TESTER Stroke/Warfarin Instructions Entered On: 05/24/2019 17:14 EST Performed On: 05/24/2019 17:14 EST by ADRIAN TERAN RN-Charge Stroke/Warfarin Instructions Stroke/TIA Discharge Ins : N/A Warfarin Discharge Ins : N/A ADRIAN TERAN RN-Charge - 05/24/2019 17:14 EST documented in this encounter Plan of Treatment Not on file documented as of this encounter Visit Diagnoses Not on filedocumented in this encounter
--- OUTSIDE RECORDS SUMMARY | 2025-04-07 08:47 | XMS_ITS | Encounter Summary ---
Author Organization [facility] ([place], [place], [place], [place]) Address [address] [place] [address] Care Team Providers Care Gun Numberer Name Role Phone Unavailable Primary Care Provider Unavailabl e Encounter Details Date Type Department Care Team (Late st Contact Info) Description 05/24/2019 Transcribed Document [facility] [place] [facility] [address] [place] [address] ProviderKinza MD [address] [place] [address] Social History Tobacco Use Types [...] Conversion Note - Kinza Serna MD - 05/24/2019 5:13 PM TECHNICIAN [employer] Patient Education Materials Follows: What to expect after the Procedure: After the procedure, it is common to have: ?? Pain and swelling. ?? A small amount of blood or clear fluid coming from your incision for up to 7 days. ?? It is normal to have a moderate amount of bleeding from the site of the drain that was pulled on the morning after surgery. You can hold pressure on the area for 3-5 minutes and cover with a bandage as needed. Diet: ?? Resume usual diet ?? No alcoholic beverages while taking pain medication ?? Drink 8-10 glasses of water a day to prevent constipation from pain medication ?? Increase fiber to help prevent constipation. Straining can cause increased pressure and pain in your incision area ?? Increase protein to promote healing Driving: ?? Do not drive until your health care provider approves. Ask your health care provider when it is safe to drive if you have an immobilizer on your knee. ?? Do not drive or operate heavy machinery while taking prescription pain medicine. ?? Do not drive for 24 hours if you received a sedative. Activity: ?? Do not lift anything that is heavier than 10 lb (4.5 kg) until your health care provider approves. ?? No strenuous activity ?? Avoid high-impact activities, including running, jumping rope, and jumping jacks. ?? Avoid sitting for a long time without moving. Get up and move around at least every few hours. ?? Keep legs elevated while seated and place surgery leg on 2-3 pillows, this will decrease swelling ?? Continue doing blue foam and scott basin ???tub time?? 3 times a day for 30 minutes at a time. More often is better. ?? Continue using walker until cleared by physical therapy Bathing: ?? Do not take baths, swim, or use a hot tub for one month after surgery. ?? May shower on the third day after surgery by covering incision with Glad Brand Press and Seal saran wrap. After showering, dry off completely BEFORE removing saran wrap. ?? Use Press and Seal saran wrap to shower for one month after surgery ?? You must be seated to shower until you are no longer using the walker Other: ?? Take aspirin 81mg two times daily for 45 days. ?? Remove samantha wrap and cotton on 05/26. Cover incision with white gauze squares and tube netting. Change white gauze squares daily and the tube netting as needed for 7 days. If there is any drainage after 7 days, call the office and let them know. ?? Sleep in the knee immobilizer for 1 week. ?? Continue tub time with the scott tub and blue foam at least 3 times daily for at least 30 minutes each time. ?? Use ice therapy for 20-30 minutes at a time and leave off for 20-30 minutes at a time. Always keep a towel or cloth between the ice wrap and your skin. Remember to use water with either ice or frozen water bottles in the polar care. ?? Continue to use Incentive Spirometer 10 times an hour while awake for one month to help prevent pneumonia Contact a health care provider if: ?? You have more redness, swelling, or pain around your incision. ?? You have more fluid or blood coming from your incision. ?? Your incision or drain site feels warm to the touch. ?? You have pus or a bad smell coming from your incision. ?? You have a fever. ?? Your incision breaks open after your health care provider removes your sutures, skin glue, or adhesive tape. ?? Your prosthesis feels loose. ?? You have knee pain that does not go away. DVT: Blood Clot Blood clots are a common risk after an orthopedic surgery Symptoms: ?? Swelling of your leg or arm, especially if one side is much worse. ?? Warmth and redness of your leg or arm, especially if one side is much worse. ?? Pain in your arm or leg. If the clot is in your leg, symptoms may be more noticeable or worse when you stand or walk. ?? A feeling of pins and needles, if the clot is in the arm. The symptoms of a DVT that has traveled to the lungs (pulmonary embolism, PE) usually start suddenly and include: ?? Shortness of breath while active or at rest. ?? Coughing or coughing up blood or blood-tinged mucus. ?? Chest pain that is often worse with deep breaths. ?? Rapid or irregular heartbeat. ?? Feeling light-headed or dizzy. ?? Fainting. ?? Feeling anxious. ?? Sweating. There may also be pain and swelling in a leg if that is where the blood clot started. How is this prevented? ?? Exercise regularly. For at least 30 minutes every day, engage in: ? Activity that involves moving your arms and legs. ? Activity that encourages good blood flow through your body by increasing your heart rate. ?? Exercise your arms and legs every hour during long-distance travel (over 4 hours). ?? Drink plenty of water and avoid drinking alcohol while traveling. ?? Avoid sitting or lying in bed for long periods of time without moving your legs. ?? Maintain a weight that is appropriate for your height. Ask your health care provider what weight is healthy for you. ?? If you are a woman who is over 35 years of age, avoid unnecessary use of medicines that contain estrogen. These include control pills. ?? Do not smoke, especially if you take estrogen medicines. If you need help quitting, ask your health care provider. ?? Wear compression stockings (if told by your health care provider) to help prevent blood clots from forming. High Fiber/High Protein Diet High fiber foods: To prevent constipation ?? Grains Whole-grain breads. Multigrain cereal. Oats and oatmeal. Brown rice. Barley. Bulgur wheat. Millet. Bran muffins. Popcorn. Grants wafer crackers. ?? Vegetables Sweet potatoes. Spinach. Kale. Artichokes. Cabbage. Broccoli. Green peas. Carrots. Squash. ?? Fruits Berries. Pears. Apples. Oranges. Avocados. Prunes and raisins. Dried figs. ?? Meats and Other Protein Sources [place], kidney, gallagher, and soy beans. Split peas. Lentils. Nuts and seeds. ?? Dairy Fiber-fortified yogurt. ?? Beverages Fiber-fortified soy milk. Fiber-fortified orange juice. ?? Other Fiber bars. High-protein foods: To promote healing High-protein foods contain 4 grams (4 g) or more of protein per serving. They include: ?? Beef, ground sirloin (cooked) ??? 3 oz have 24 g of protein. ?? Cheese (hard) ??? 1 oz has 7 g of protein. ?? Chicken breast, boneless and skinless (cooked) ??? 3 oz have 13.4 g of protein. ?? Cottage cheese ??? 1/2 cup has 13.4 g of protein. ?? Egg ??? 1 egg has 6 g of protein. ?? Fish, filet (cooked) ??? 1 oz has 6???7 g of protein. ?? Garbanzo beans (canned or cooked) ??? 1/2 cup has 6???7 g of protein. ?? Kidney beans (canned or cooked) ??? 1/2 cup has 6???7 g of protein. ?? [place] (cooked) ??? 3 oz has 24 g of protein. ?? Milk ??? 1 cup (8 oz) has 8 g of protein. ?? Nuts (peanuts, pistachios, almonds) ??? 1 oz has 6 g of protein. ?? Peanut butter ??? 1 oz has 7???8 g of protein. ?? Pork tenderloin (cooked) ??? 3 oz has 18.4 g of protein. ?? Pumpkin seeds ??? 1 oz has 8.5 g of protein. ?? Soybeans (roasted) ??? 1 oz has 8 g of protein. ?? Soybeans (cooked) ??? 1/2 cup has 11 g of protein. ?? Soy milk ??? 1 cup (8 oz) has 5???10 g of protein. ?? Soy or vegetable kera ??? 1 kera has 11 g of protein. ?? [place] seeds ??? 1 oz has 5.5 g of protein. ?? Tofu (firm) ??? 1/2 cup has 20 g of protein. ?? Tuna (canned in water) ??? 3 oz has 20 g of protein. ?? Yogurt ??? 6 oz has 8 g of protein. Fall Prevention ?? Use night lights. ?? Install grab bars by the toilet and in the tub and shower. Do not use towel bars as grab bars. ?? Use non-skid mats or decals on the floor of the tub or shower. ?? If you need to sit down while you are in the shower, use a plastic, non-slip stool. ?? Keep the floor dry. Immediately clean up any water that spills on the floor. ?? Remove soap buildup in the tub or shower on a regular basis. ?? Remove throw rugs and other tripping hazards from the floor. ?? Place frequently used items in amih-tn-ljjbh places ?? Keep electrical cables out of the way. ?? Do not leave any items on the stairs. ?? Make sure that there are handrails on both sides of the stairs. Fix handrails that are broken or loose. Make sure that handrails are as long as the stairways. ?? Check any carpeting to make sure that it is firmly attached to the stairs. Fix any carpet that is loose or worn. ?? Avoid having throw rugs at the top or bottom of stairways, or secure the rugs with carpet tape to prevent them from moving. ?? Wear closed-toe shoes that fit well and support your feet. Wear shoes that have rubber soles or low heels. ?? Use mobility aids as needed, such as canes, walkers, scooters, and crutches. ?? Turn on lights if it is dark. Replace any light bulbs that burn out. ?? Set up furniture so that there are clear paths. Keep the furniture in the same spot. ?? Be aware of any and all pets. ?? Review your medicines with your healthcare provider. Some medicines can cause dizziness or changes in blood pressure, which increase your risk of falling. Hand Washing You should wash your hands whenever you think they are dirty. You should also wash your hands: ?? After: ? Working or playing outside. ? Touching an animal or its toys or leash. ? Handling livestock. ? Using the bathroom. ? Using household living manager or toxic chemicals. ? Touching or taking out the garbage. ? Touching anything dirty around your home. ? Handling soiled clothes or rags. ? Taking care of a sick child. This includes touching used tissues, toys, and clothes. ? Sneezing, coughing, or blowing your nose. ? Using public transportation. ? Shaking hands. ? Using a phone, including your mobile phone. ? Touching money. ?? Before and after: ? Preparing food. ? Feeding a baby or young child. ? Eating. ? Visiting or taking care of someone who is sick. ? Changing a diaper. ? Changing a bandage (dressing) or taking care of an injury or wound. ? Giving or taking medicine. If soap and clean water are not available, use an alcohol-based wipe, spray, or hand gel. Use a hand-sanitizing agent that contains at least 60% alcohol. If you are preparing food, hand sanitizers are not recommended as a substitute for hand washing. Walker Use To Walk With a Front-Wheeled Walker: 1. Slide your front-wheeled walker one step-length in front of you. Your toes should be farther forward than the back legs of your walker. 2. Hold on to the walker for support, and step your weaker (surgery) leg into the middle of the walker. 3. Step your stronger leg forward to land next to your weaker leg. 4. Repeat the process for each step. ?? Always keep both feet within the width of the walker's legs or wheels. ?? When using your walker, you should not feel like you need to lean forward or to the side to keep your hands on the handgrips. ?? Make sure you are following any weight-bearing instructions that your health care provider has given you. ?? Be careful not to let the walker get too far ahead of you as you walk. ?? If your walker does not glide well over carpet, consider cutting an X into two tennis balls and placing the balls over the back legs of your walker. To Use a Walker to Step Up: 1. Put all four legs of the walker on the curb or step. 2. Get your feet as close to the curb or step as you can. 3. Test the steadiness of the walker by pressing down on the handgrips. 4. If the walker is steady, press down on it with your hands as you step up with your stronger leg. 5. Step up with your weaker leg. To Use a Walker to Step Down: 1. Put all four legs of the walker on the surface that is lower than the curb or step. 2. Get your feet as close to the curb or step as you can. 3. Test the steadiness of the walker by pressing down on the handgrips. 4. If the walker is steady, press down on it with your hands as you step down with your weaker leg. 5. Step down with your stronger leg. Knee Immobilizer Brace: ?? Adjust the brace as often as needed while wearing it. It should be firm but not tight. Signs that the brace is too tight include: ? Puffiness (swelling). ? Numbness. ? Color change in your foot or ankle. ? Increased pain. documented in this encounter Plan of Treatment Not on file documented as of this encounter Visit Diagnoses Not on filedocumented in this encounter
--- OUTSIDE RECORDS SUMMARY | 2025-04-07 08:47 | XMS_ITS | Clinical Summary ---
Author Organization [facility] Address [address] [place] [id number] Care Team Providers Care Cementer Helper Name Role Phone Sukhdev Abernathy MD Primary Care Provider [phone] Allergies No known active allergies Medications montelukast (SINGULAIR) 10 MG tablet Take 10 mg by mouth nightly. Active fluticasone-Christiano meterol (ADVAIR DISKUS) 250-50 MCG/DOSE AEPB inhaler Inhale into the lungs. Active sertraline (ZOLOFT) 100 MG tablet 1 Active modafinil (PROVIGIL) 200 MG tablet 1 Active naproxen (NAPROSYN) 250 MG tablet Active mirabegron (MYRBETRIQ) 25 MG 24 hr tablet Take 25 mg by mouth daily. Active ASPIRIN 81 PO Active Cholecalciferol (VITAMIN D3) 50 MCG (1999 UT) capsule Active HYDROcodone-samantha taminophen (NORCO) 5-325 MG per tablet TAKE ONE TABLET BY MOUTH EVERY 4 HOURS NEEDED FOR PAIN MAY CAUSE DROWSINESS 1 Active Marion-3 Krill Oil 500 MG CAPS Acti ve levothyroxine (SYNTHROID) 50 MCG tablet 1 Active Loratadine 10 MG CAPS Active Mometasone Furoate 50 MCG/ACT AERO Active ramipril (ALTACE) 2.5 MG capsule 1 Active ciprofloxacin-d examethasone (CIPRODEX) 0.3-0.1 % otic suspension instill 4 drops into THE affected ear(s) TWICE DAILY FOR 7 DAYS 1 Active fluticasone (FLONASE) 50 MCG/ACT nasal spray 1 Active PROAIR HFA 108 (90 Base) MCG/ACT inhaler 2 Active amoxicillin (AMOXIL) 500 MG capsule 1 Active azelastine (ASTELIN) 0.1 % nasal spray 2 Active chlorhexidine (PERIDEX) 0.12% solution 1 Active imiquimod (ALDARA) 5 % cream 1 Active methylPREDNISol one (MEDROL DOSPACK) 4 MG tablet 1 Active predniSONE (DELTASONE) 20 MG tablet 1 Active B-D 3CC LUER-BYRON SYR 90FS1-1/2 20G X 1-1/2 3 ML MISC 2 Active testosterone cypionate (DEPOTESTOTERON E CYPIONATE) 200 MG/ML injection 2 Active Active Problems Problem Noted Date Diagnosed Date 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 11/12/2020 S/P spinal fusion 09/24/2020 Asthma Hypertension Anxiety Fatigue BPH associated with nocturia Hypersomnolence Lumbar spondylosis KARIE on CPAP Family History Medical History Relation Comments Hyperlipidemia Brother Other Father SEVERE ASCUD Alzheimer's disease Mother Relation Status Comments Brother Father Mother Social History Tobacco Use Types Packs/Day Years Used Date Smoking Tobacco: Never Smokeless Tobacco: Never Tobacco Cessation:Counseling Given: No Alcohol Use Standard Drinks/Week Comments Yes 0 (1 standard drink = 0.6 oz pur e alcohol) Sex and Gender Information Value Date Recorded Sex Assigned at Male 03/28/2021 12:54 PM EDT Legal Sex Male 4:07 PM EST Gender Identity Male 03/28/2021 12:54 PM EDT Sexual Orientation Straight 03/28/2021 12 :54 PM EDT Last Filed Vital Signs Vital Sign Reading Time Taken Comments Blood Pressure - - Pulse - - Temperature - - Respiratory Rate - - Oxygen Saturation - - Inhaled Oxygen Concentration - - Weight 78.9 kg (174 lb) 04/21/2022 10:42 AM EDT Height 185.4 cm (6' 1 ) 04/21/2022 10:42 AM EDT Body Mass Index 22.96 04/21/2022 10:42 AM EDT Plan of Treatment Health Maintenance Due Date Last Done Comments CT Colonography 1955 Colonoscopy 1955 Colorectal Cancer Screening 1955 FIT-DNA 1955 FIT 1955 FOBT 1955 Hepatitis C Screening 1955 Medicare Annual Wellness Vis it (AWV) 1955 Sigmoidoscopy 1955 Shingles (Shingrix) (1 of 2) 1974 Tdap/Td Vaccine >11 yo (1 - Tdap) 1974 RSV 50+ and (1 - R isk 50-74 years 1-dose series) 2005 Abdominal Aortic Aneurysm (A AA) Screen 2020 Pneumococcal Vaccines >50 yo (2 of 2 - PCV) 09/20/2021 09/20/2020 Annual SDOH Screening 07/20/2024 Influenza Vaccine (#1) 2025 Haemophilus Influenzae Type B (Hib) Vaccine Aged Out No longer eligible b ased on patient's age to complete this topic Hepatitis A (HepA) Vaccine Aged Out N o longer eligible based on patient's age to complete this topic Hepatitis B (HepB) Vaccine Aged Out N o longer eligible based on patient's age to complete this topic Meningococcal ACWY Aged Out No longer eligible based on patient's age to complete this topic Polio (IPV) Aged Out No longer eligi ble based on patient's age to complete this topic Rotavirus (RV) Vaccine Aged Out No lo nger eligible based on patient's age to complete this topic Insurance MEDICARE [facility] Care Teams Cementer Helper Relationship Specialty Start Date End Date Sukhdev Abernathy MD [address] [place] [address] PCP - General Internal Medicine 07/15/21
--- OUTSIDE RECORDS SUMMARY | 2025-04-07 08:48 | XMS_ITS | Referral Summary ---
Author Organization [facility] Address [address] [place] [address] Care Team Providers Care Sterile Processing Technologist Name Role Phone Zaire Abernathy MD Primary Care Provider [phone] Social History Tobacco Use Types Packs/Day Years [...] Orientation Not on file Plan of Treatment Not on file Insurance [place]abs [place] [id number] MEDICARE on file FOR LIFE Care Teams Sterile Processing Technologist Relationship Specialty Start Date End Date Zaire Abernathy MD PCP - General Internal Medicine 07/09/21
--- OUTSIDE RECORDS SUMMARY | 2025-04-07 08:48 | XMS_ITS | Encounter Summary ---
Author Organization [employer] ([place], [place], [place], [place]) Address [address] [place] [address] Care Team Providers Care Behavioral Health Aide Name Role Phone Unavailable Primary Care Provider Unavailabl e Encounter Details Date Type Department Care Team (Late st Contact Info) Description 05/24/2019 Transcribed Document [facility] [place] Family Medicine [address] [place] [address] ProviderKinza MD [address] [place] [address] Social History Tobacco Use Types [...] Conversion Note - Historical ProviderMD - 05/24/2019 9:13 AM RESEARCH AGRICULTURAL ENGINEER Pre Procedure Adult Entered On: 05/24/2019 9:16 EST Performed On: 05/24/2019 9:13 EST by MUSTAPHA ROMANO RN Height and Weight, Clinical Dosing Height Source : Stated Height Entry Format : [place] Height, Feet : 6 ft(Converted to: 183 cm, 72 Inch) Height, Inches : 0.5 Inch(Converted to: 0 ft 1 Inch, 1.27 cm) Clinical Height : 184.15 cm Weight Source : Standing scale Weight Entry Format : Crook Clinical Dosing Weight : 79.55 kg Weight, Pounds : 175 lb Body Surface Area (BSA) : 2.02 m2 Body Mass Index : 23.5 kg/m2 [place] Body Weight : 78 kg MUSTAPHA ROMANO RN - 05/24/2019 9:13 EST Health Histories Smoking Status : Never (less than 100 in lifetime; none in last 30 days) Smokeless Tobacco Status : Never MUSTAPHA ROMANO RN - 05/24/2019 9:13 EST Social History (As Of: 05/24/2019 09:40:38 EST) Tobacco: Never (less than 100 in [...] Illness : No Tuberculosis Symptoms : None MUSTAPHA ROMANO RN - 05/24/2019 9:13 EST Anesthesia/Transfusion History Family History of Anesthesia Reaction : Prior transfusion without reaction Transfusion History : Prior anesthesia reaction Type of Anesthesia Reaction : Excessive somnolence Family History of Anesthesia Reaction : None MUSTAPHA ROMANO RN - 05/24/2019 9:13 EST Functional Assessment Living Situation : Home Patient Lives With : Spouse Persons Assisting Patient at Home : Spouse Current Daily Living Assistance : None MUSTAPHA ROMANO RN - 05/24/2019 9:13 EST Sensory Deficits : Blind, right eye MUSTAPHA ROMANO RN - 05/24/2019 9:39 EST Mobility Assistance Prior to Admission : Independent CASTELLANOS Hx Falls Immediate/Within 3 Months : No Current Home Treatments : None Home Equipment : None Professional Skilled Services : None Special Services and Community Resources : None MUSTAPHA ROMANO RN - 05/24/2019 9:13 EST Psychosocial History Do You Have a History of the Following? : Depression Currently in Unsafe Situation : No Do You Have a Support System? : Yes Tried to Harm Yourself in the Past? : No Thoughts of Harming/Killing Yourself : No MUSTAPHA ROMANO RN - 05/24/2019 9:13 EST Advance Directive Patient has Advance Directive *Q : No, patient refuses Advance Directive information MUSTAPHA ROMANO RN - 05/24/2019 9:13 EST Teaching/Learning Assessment Barriers To Learning : None evident Individuals Taught : Patient, Spouse Readiness to Learn : Cooperative Baseline Knowledge of Topic : Good Readiness to Learn : Explanation, Printed materials Learning Style Preferences Patient : Printed materials, Verbal explanation Learning Style Preferences Family : Printed materials, Verbal explanation MUSTAPHA ROMANO RN - 05/24/2019 9:13 EST Education Topics, Periop Preadmission Perioperative Education Grid Arrival Time/Place : Verbalizes understanding Falls : Verbalizes understanding IV's : Verbalizes understanding NPO Status/Directions : Verbalizes understanding Pain Management : Verbalizes understanding Preprocedure Preparations : Verbalizes understanding Preprocedure Tests/Labs : Verbalizes understanding Responsible Adult : Verbalizes understanding Take/Hold Medications Pre-Procedure : Verbalizes understanding MUSTAPHA ROMANO RN - 05/24/2019 9:13 EST General Info Arrived From : Home Mode of Arrival on Unit : Ambulatory Patient Arrival Date/Time : 05/24/2019 8:25 EST Legal Guardian : Spouse, Unaccompanied Want Family/Rep/Phys Notified of Admit : No Emergency Contact #1 : Oh Emergency Contact #1 Emergency Contact #1 Relationship : Emergency Contact #2 : . Emergency Contact #2 Phone Number : . Emergency Contact #2 Relationship : . Information Obtained From : Patient Primary Language : Trinidadian Preferred Communication Mode : Verbal Communication Barrier : None Currently Lactating : N/A Status : N/A MUSTAPHA ROMANO RN - 05/24/2019 9:13 EST Vital Measurements Temperature Source : Oral Temperature Mode : Fahrenheit Temperature, Fahrenheit : 97.8 Deg F Clinical Temperature, C : 36.6 Deg C Pulse Method : Pulse Oximetry Pulse Source : Radial, Right Peripheral Pulse Rate : 57 bpm (LOW) Pulse Rhythm : Regular Respiratory Rate : 16 Breaths/Min Blood Pressure Location : Arm, left upper Blood Pressure Source : Non-Invasive BP Device Blood Pressure Position : Side, Left Systolic Blood Pressure : 111 mmHg Diastolic Blood Pressure : 69 mmHg Oxygen Saturation : 96 % Oxygen Therapy Mode : Room air MUSTAPHA ROMANO RN - 05/24/2019 9:42 EST Sleep Apnea Risk Assmt Hx of [...] Sleep Apnea Risk Level Score : 3 MUSTAPHA ROMANO RN - 05/24/2019 9:13 EST To Scale To Sensory Perception : No impairment To Moisture : Rarely moist To Activity : Walks frequently To Mobility : Slightly limited To Nutrition : Excellent To Friction and Shear : No apparent problem To Score : 22 MUSTAPHA ROMANO RN - 05/24/2019 9:13 EST Oxygen Therapy Oxygen Therapy Mode : Room air MUSTAPHA ROMANO RN - 05/24/2019 9:13 EST Pain Assessment Pain Assessment : Initial assessment Pain Scale Used : 0-10 Scale MUSTAPHA ROMANO RN - 05/24/2019 9:39 EST Fall Risk Scales ABCs Fall Injury Risk Identification : Surgery ABC Fall Injury Risk : Moderate to high injury risk CASTELLANOS Hx Falls Immediate/Within 3 Months : No Castellanos Secondary Diagnosis : Yes CASTELLANOS Use of Ambulatory Aid : None CASTELLANOS IV Therapy or IV Access : Yes Castellanos Gait/Transferring : Normal, bedrest, immobile Castellanos Mental Status : Oriented to own ability Castellanos Fall Risk Score : 35 CASTELLANOS Fall Scale Risk Level : 25-45 Medium Risk [place] Fall Interventions : Adequate lighting, Bed in low position, Call device within reach, Hourly comfort/safety rounds, Non-slip footwear, Personal items within reach, Upper side-rails up, Wheels locked MUSTAPHA ROMANO RN - 05/24/2019 9:13 EST Fall Risk Education Grid Call light use : Verbalizes understanding Eyeglasses Use : Verbalizes understanding Nonskid Footwear Use : Verbalizes understanding Siderails use/risks : Verbalizes understanding MUSTAPHA ROMANO RN - 05/24/2019 9:13 EST Barriers to Learning : None evident Individuals Taught : Patient, Spouse Readiness to Learn : Cooperative Baseline Knowledge of Topic : Good Teaching Method : Printed materials Learning Style Preferences Family : Printed materials, Verbal explanation Learning Style Preferences Patient : Printed materials, Verbal explanation Teaching Evaluation : Verbalizes understanding MUSTAPHA ROMANO RN - 05/24/2019 9:13 EST Education Topics, Day of Surgery DayofSurgery Education Grid Anesthesia/Sedation : Verbalizes understanding Fall Risks : Verbalizes understanding Family Instructions : Verbalizes understanding IV's : Verbalizes understanding Medication Instructions : Verbalizes understanding Pain Management : Verbalizes understanding Responsible Adult : Verbalizes understanding MUSTAPHA ROMANO RN - 05/24/2019 9:13 EST Valuables and Belongings Personal Device Disposition : With family Jewelry : Ring, Watch Jewelry Disposition : With family Personal Devices : Glasses Valuables and Belongings : Clothing, Jewelry, Personal devices MUSTAPHA ROMANO RN - 05/24/2019 9:39 EST Clothing : Common streetwear Clothing Disposition : With family MUSTAPHA ROMANO RN - 05/24/2019 9:13 EST Pain Scale Intensity : 0 MUSTAPHA ROMANO RN - 05/24/2019 9:39 EST Image 4 - Images currently included in the form version of this document have not been included in the text rendition version of the form. [place] Coma [place] Best Motor Response : Obey commands [place] Best Verbal Response : Oriented [place] Eye Opening Response : Spontaneous [place] Coma Score : 15 MUSTAPHA ROMANO RN - 05/24/2019 9:13 EST documented in this encounter Plan of Treatment Not on file documented as of this encounter Visit Diagnoses Not on filedocumented in this encounter
--- OUTSIDE RECORDS SUMMARY | 2025-04-07 08:48 | XMS_ITS | Encounter Summary ---
Author Organization [employer] ([place], [place], [place], [place]) Address [address] [place] [address] Care Team Providers Care Gear Setter Name Role Phone Unavailable Primary Care Provider Unavailabl e Encounter Details Date Type Department Care Team (Late st Contact Info) Description 05/24/2019 Transcribed Document [facility] [place] [address] [place] [address] ProviderKinza MD [address] [place] [address] Social History Tobacco Use Types [...] Conversion Note - Kinza ProviderMD - 05/24/2019 12:02 PM INTERIOR MECHANIC FLOYD Main OR PreOp Summary Primary Physician: YESSENIA SPEARS MD-ORT Finalized Date/Time: 05/25/19 08:29:14 Pt. Name: ANTONI WADDELLO.B./Sex: 1955 Male Med Rec #: [id number] Physician: YESSENIA SPEARS MD-ORT Financial #: [id number] Pt. Type: O Room/Bed: 524/1 Admit/Disch: 05/24/19 04:46:00 - 05/24/19 20:11:00 [place] [facility] [place] Case Times Entry 1 In Preop 05/24/19 08:25:00 Ready for Holding n/a Room Patient Ready for 05/24/19 09:33:00 Surgery Patient Out of Preop 05/24/19 11:24:00 Patient Out of n/a Holding Room Last Modified By: MERRITT OLIVER 05/25/19 08:29:10 S[facility] PreOp Case Times Audit 05/25/19 08:29:10 American Sign Language Teacher: ANAHI Modifier: [email or web address] <+> 1 Patient Out of Preop Finalized By: MERRITT OLIVER Document Signatures Signed By: MERRITT OLIVER 05/25/19 08:29 Electronically signed by Tony Nagy Conversion Marketing And Communications Officer Cerner at 11/04/2022 3:26 PM CDT documented in this encounter Plan of Treatment Not on file documented as of this encounter Visit Diagnoses Not on filedocumented in this encounter
--- OUTSIDE RECORDS SUMMARY | 2025-04-07 08:48 | XMS_ITS | Encounter Summary ---
Author Organization [employer] ([place], [place], [place], [place]) Address [address] [place] [address] Care Team Providers Care Touch Up Worker Name Role Phone Unavailable Primary Care Provider Unavailabl e Encounter Details Date Type Department Care Team (Late st Contact Info) Description 05/24/2019 Transcribed Document [facility] [place] [address] [place] [address] ProviderKinza MD [address] [place] [address] Social History Tobacco Use Types [...] Conversion Note - Historical ProviderMD - 05/24/2019 4:46 PM OPERATIONS DEVELOPER Patient: ANTONI WADDELL V Age: 64 years Sex: Male : 1955 Associated Diagnoses: None Author: NIKOLAY GARDNER MD History of Present Illness This patient is [...] h/o asthma but no COPD or KARIE. Procedures Knee Unicompartmental Replacement (Checked In) 05/24/2019 10:30 PAT for Surgery (Checked In) 05/13/2019 13:00 seen at bedside no acute complains Review of Systems Constitutional: Negative. Eye: Negative. Ear/Nose/Mouth/Throat: Negative. Respiratory: Negative. Cardiovascular: Negative. Gastrointestinal: Negative. Genitourinary: Negative. Hematology/Lymphatics: Negative. Endocrine: Negative. Immunologic: Negative. Musculoskeletal: Negative. Integumentary: Negative. Neurologic: Negative. Psychiatric: Negative. Health Status Allergies: Allergies (1) Active Reaction No Known Allergies None Documented Current medications: Home Medications (20) Active Advair Diskus 250 mcg-50 mcg inhalation powder 1 Puff, PRN, Inhalation, BID aspirin 81 mg oral delayed release tablet 81 mg = 1 Tab, Oral, BID Colace 100 mg oral capsule 100 mg = 1 Cap, Oral, BID Dilaudid 2 mg oral tablet 2 mg = 1 Tab, PRN, Oral, Q6H Fish Oil 1,200 mg, Oral, Daily gabapentin 300 mg oral capsule 300 mg = 1 Cap, Oral, Once a day (at bedtime) Glucosamine & Chondroitin with MSM 1500 mg/1200 mg, Oral, Daily levothyroxine 50 mcg, Oral, Daily Mobic 15 mg oral tablet 15 mg = 1 Tab, Oral, Daily montelukast 10 mg, Oral, Daily multivitamin , Oral, Daily Myrbetriq 50 mg, Oral, Daily oxyCODONE 5 mg oral tablet 5 mg = 1 Tab, PRN, Oral, Q4H ramipril 2.5 mg oral capsule 2.5 mg, Oral, Daily resveratrol 300 mg, Oral, Daily sertraline 100 mg, Oral, Daily Systane Ultra Preservative Free ophthalmic solution 1 Drop, PRN, Eyes Both, BID traMADol 50 mg oral tablet 50 mg = 1 Tab, Oral, Q6HInt triple action joint health 1 Tab, Oral, Daily Vitamin D3 200 IU, Oral, Daily Problem list: Active Problems (8) Asthma, exercise induced At risk for sleep apnea Blind right eye Depression Hypertension Hypothyroid Urinary frequency Urinary urgency Histories Family History: No family history items have been selected or recorded. Procedure history: left ankle replacement on 07/09/2015 at 60 Years. anterior and posterior lumbar spine fusion L3-S1 on 05/13/2003 at 48 Years. left elbow tendon release on 05/13/2002 at 47 Years. Septorhinoplasty ([id number]) on 05/13/2001 at 46 Years. right eye evisceration on 05/13/1996 at 41 Years. left thumb ORIF. jaw for averbite. Social History Social & Psychosocial Habits Alcohol 05/13/2019 Alcohol Use History, Social Habits Yes Number of Drinks per Day 1 Alcohol Use in Last Twelve Months Yes Alcohol Use Frequency Weekly Substance Abuse 05/13/2019 Recreational Drug Use History No Recreational Drug Use Last 12 Months No Tobacco 05/13/2019 Smoking Status Never (less than 100 in l Smokeless Tobacco Status Never . Physical Examination VS/Measurements Vitals Signs (last 24 hrs) Last Charted Minimum Maximum Temp 97.7 (MAY 24:) 97.7 (MAY 24:) 97.8 (MAY 24:) Mon HR 75 (MAY 24:) 62 (MAY 24:30) 76 (MAY 24:) Periph HR 58 (MAY 24 10:00) 57 (MAY 24 09:13) 58 (MAY 24 10:00) Resp Rate 18 (MAY 24:) 16 (MAY 24:) 18 (MAY 24 14:00) SBP 112 (MAY 24:) 100 (MAY 24 13:20) 130 (MAY 24 10:00) DBP 68 (MAY 24:) L 58 (MAY 24:20) 83 (MAY 24 10:00) MAP 82 (MAY 24:) 78 (MAY 24:15) 91 (MAY 24:) SpO2 97 (MAY 24:) 94 (MAY 24:) 99 (MAY 24:30) General: Alert and oriented, No acute distress. Eye: Normal conjunctiva. HENT: Oral mucosa is moist. Neck: Supple. Respiratory: Lungs are clear to auscultation. Cardiovascular: Normal rate, Regular rhythm, No murmur, Good pulses equal in all extremities, No edema. Gastrointestinal: Soft, Non-tender, Non-distended, Normal bowel sounds. Musculoskeletal: post surgical dressin gin place. Integumentary: Warm. Neurologic: Alert, Oriented, No focal deficits. Psychiatric: Cooperative, Appropriate mood & affect. Review / Management Results review: Labs (Last four charted values) Na 140 (MAY 13) K 4.8 (MAY 13) Cl 106 (MAY 13) CO2 29 (MAY 13) BUN H 25 (MAY 13) Cr 1.07 (MAY 13) Glu R L 68 (MAY 13) Ca 9.0 (MAY 13) AST 27 (MAY 13) ALT 31 (MAY 13) ALK P 74 (MAY 13) T Bili 0.5 (MAY 13) PTN 7.3 (MAY 13) ALB 3.8 (MAY 13) , No qualifying data available. Radiology results No Radiology Results Found Impression and Plan 1. Right Knee Pain secondary to DJD- s/p surgery as scheduled with Dr Kingston on 05/24/2019. 2. Hypertension- Continue Ramipril. 3. Hypothyroidism- Continue Synthroid. 4. Asthma- Nebs/Inhalers prn. 5. Seasonal Allergies- Continue Singulair. 6. Urinary Incontinence- Continue Myrbetriq. 7. Depression- Continue Sertraline. home today per ortho medically stable for discharge documented in this encounter Plan of Treatment Not on file documented as of this encounter Visit Diagnoses Not on filedocumented in this encounter
--- OUTSIDE RECORDS SUMMARY | 2025-04-07 08:48 | XMS_ITS | Encounter Summary ---
Author Organization [employer] ([place], [place], [place], [place]) Address [address] [place] [address] Care Team Providers Care Can Closing Machine Tender Name Role Phone Unavailable Primary Care Provider Unavailabl e Encounter Details Date Type Department Care Team (Late st Contact Info) Description 05/24/[address] 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 Evaluation, Occupational Therapy Entered On: 05/24/2019 15:13 EST Performed On: 05/24/2019 14:39 EST by JOE KIM, YONATHANR/Tamar General Information, OT Visit Type, OT : Initial evaluation Patient Orders : Order Date Order Ordering 05/24/2019 14:08 OT Evaluation and Treatment Ordered By: YESSENIA SPEARS MD-ORT 05/24/2019 14:08 OT Treatment Instructions Ordered By: YESSENIA SPEARS MD-ORT Active Diagnoses : No Qualifying Diagnoses Therapy Diagnosis, OT : Aftercare following joint replacement surgery (R knee) Onset of Problem, OT : 05/24/2019 EST Admission Date : 05/24/2019 04:46 Personal Devices : Personal Devices Glasses Assistive Devices : Assistive Devices No Devices Recorded Precautions in Place : Fall prevention measures, Fall prevention measures, high risk General Information Comment, OT : WBAT; pt is fast track pt and is tentatively d/c'ing home later today JOE KIM OTR/Tamar - 05/24/2019 15:06 EST General Status Patient Received Status : Supine in bed Treatment Start Time : 05/24/2019 14:39 EST Patient Left Status : Up in chair, Chair alarm activated, Family/Visitors at bedside, All needs met and within reach, Other: PT present RN/PCT Informed Comment : RN ok'ed to see Treatment End Time : 05/24/2019 15:06 EST Treatment Time : 27 Minute(s) Actual Treatment Time : 27 Minute(s) JOE KIM OTR/Tamar - 05/24/2019 15:06 EST History and Environment, OT Living Situation, Therapy : Home Patient Lives With : Spouse Persons Assisting Patient at Home : Spouse Professional Skilled Services : None Persons Providing Information : Patient Home Equipment, Therapy : Commode, Walker Commode : Commode, bedside Walker : Walker, front wheel Home Setup : Basement, One story Stairs : Yes Stair Location(s) : Inside, Outside Inside Stairs, Number of Steps : 14 Stairs Inside Comment : Pt reports he can stay on main floor Outside Stairs, Number of Steps : 2 Railing Outside : Yes Outside Railing Position : Left, going up JOE KIM OTR/Tamar - 05/24/2019 15:06 EST Prior LOF Bathing, OT : Independent Prior LOF Bed Mobility : Independent Prior LOF Upper Body Dressing, OT : Independent Prior LOF Lower Body Dressing, OT : Independent Prior LOF Toileting : Independent Prior LOF Transfer : Independent Prior LOF Grooming, OT : Independent JOE KIM OTR/Tamar - 05/24/2019 15:06 EST Upper Extremity Upper Extremity Dominance : Right Right UE Active ROM : WFL Right UE Strength : WFL Left UE Active ROM : WFL Left UE Strength : WFL Hand Staff Appraiser Test : WFL bilaterally Fine Motor Coordination Impaired : No JOE KIM OTR/Tamar - 05/24/2019 15:06 EST Functional Mobility Mobility Grid Supine to Sit : Rehab Modified independence Sit to Stand : Supervision/set-up Bed to Chair : Supervision/set-up Stand to Sit : Supervision/set-up JOE KIM OTR/Tamar - 05/24/2019 15:06 EST Functional MobilityComment : G safety awareness JOE KIM KEVEN/Tamar 05/24/2019 15:06 EST Activity Tolerance, OT Activity Comment : F+ act. tolerance JOE KIM KEVEN/Tamar 05/24/2019 15:06 EST Neurological/Sensory Light Touch Response : Intact JOE KIM KEVEN/Tamar 05/24/2019 15:06 EST Cognition Assessment, OT Orientation : Oriented x 4 Cognition Assessment, OT : Intact JOE KIM KEVEN/Tamar 05/24/2019 15:06 EST Education OT Occupational Therapy Education Grid Activity of Daily Living Training : Verbalizes understanding Caregiver Training : Verbalizes understanding Functional Mobility Training : Verbalizes understanding, Returns demonstration Home Safety : Verbalizes understanding Precaution/Contraindication : Verbalizes understanding Role of Occupational Therapy : Verbalizes understanding Occupational Therapy, Other : Verbalizes understanding (Comment: safe car transfer [JOE KIM KEVEN/Tamar 05/24/2019 15:06 EST] ) JOE KIM KEVEN/Tamar 05/24/2019 15:06 EST Teaching/Learning Assessment Barriers To Learning : Acuity of Illness Individuals Taught : Patient, Spouse Readiness to Learn : Cooperative Baseline Knowledge of Topic : Limited Readiness to Learn : Demonstration, Explanation, Printed materials Learning Style Preferences Patient : None Learning Style Preferences Family : None JOE KIM KEVEN/Tamar 05/24/2019 15:06 EST Indication Assessment, OT Occupational Therapy Indicated : No Occupational Therapy Not Indicated : No skilled services indicated, Other: Pt is fast track pt and is tentatively d/c'ing home later today; he and his have been provided with all needed instruction in preparation for d/c, and both verbalized understanding. JOE KIMKEVEN/Tamar 05/24/2019 15:06 EST Plan of Care, OT OT Tx Plan/Goals Established w Patient : No Reason OT Treatment/Plan Not Established : Eval, 1x tx only OT Frequency Rehab : Discontinue Other OT Treatment Provided This Date : Self care: pt, family instruction provided re: ADL performance, safety, home safety, safe car transfers Eval=8 min Self care=19 min OT Duration Rehab : One day JOE KIMKEVEN/Tamar 05/24/2019 15:06 EST Pain Assessment Pain Scaled Used : 0-10 Pain scale Pain Score Pre-Intervention : 1 Location : Knee, right JOE KIMKEVEN/Tamar - 05/24/2019 15:06 EST Image 1 - Images currently included in the form version of this document have not been included in the text rendition version of the form. [facility] OT Charges OT Selfcare/Hm Mgmt Ea 15 Min : 1 OT Eval Moderate Complexity : 1 JOE KIM, YONATHANR/L - 05/24/2019 15:06 EST Electronically signed by Yakov [facility] Conversion Glass Deposition Tender Cerner at 11/04/2022 3:24 PM CDT documented in this encounter Plan of Treatment Not on file documented as of this encounter Visit Diagnoses Not on filedocumented in this encounter
--- OUTSIDE RECORDS SUMMARY | 2025-04-07 08:48 | XMS_ITS | Encounter Summary ---
Author Organization [employer] ([place], [place], [place], [place]) Address [address] [place] [address] Care Team Providers Care Jd Edwards Consultant Name Role Phone Unavailable Primary Care Provider Unavailabl e Encounter Details Date Type Department Care Team (Late st Contact Info) Description 05/24/2019 Transcribed Document [facility] [place] Family Medicine [address] [place] [address] ProviderKinza MD [address] [place] [address] Social History Tobacco Use Types [...] - Kinza ProviderMD - 05/24/2019 12:02 PM ELECTRICAL TESTER BATTERY Giovanni Main OR PACU Summary Primary Physician: YESSENIA SPEARS MD-ORT Finalized Date/Time: 05/24/19 14:11:37 Pt. Name: ANTONI WADDELLO.B./Sex: 1955 Male Med Rec #: [id number] Physician: YESSENIA SPEARS MD-ORT Financial #: [id number] Pt. Type: O Room/Bed: [facility]/ Admit/Disch: 05/24/19 04:46:00 - Institution: [facility] OR PACU Case Times Entry 1 In PACU I 05/24/19 13:13:00 Ready for PACU 05/24/19 14:11:00 Discharge Discharge from PACU 05/24/19 14:11:00 I Last Modified By: Amanda Page RN 05/24/19 14:11:21 [facility] Main OR PACU Case Times Audit 05/24/19 14:11:21 It Corporate Recruiter: SHANNAN Modifier: [email or web address] <+> 1 Ready for PACU Discharge <+> 1 Discharge from PACU I Finalized By: Amanda Page, RN Document Signatures Signed By: Amanda Page RN 05/24/19 14:11 Electronically signed by Yakov [facility] Conversion Pourer Buggy Ladle Cerner at 11/04/2022 3:20 PM CDT documented in this encounter Plan of Treatment Not on file documented as of this encounter Visit Diagnoses Not on filedocumented in this encounter
--- OUTSIDE RECORDS SUMMARY | 2025-04-07 08:48 | XMS_ITS | Encounter Summary ---
Author Organization [employer] ([place], [place], [place], [place]) Address [address] [place] [address] Care Team Providers Care Contract Admin Name Role Phone Unavailable Primary Care Provider Unavailabl e Encounter Details Date Type Department Care Team (Late st Contact Info) Description 05/24/2019 Transcribed Document [facility] [address] [place] [address] ProviderKinza MD [address] [place] [address] Social History Tobacco Use Types [...] Conversion Note - Historical ProviderMD - 05/24/2019 10:27 AM HOSE WRAPPER Peripheral Nerve Block Entered On: 05/24/2019 10:28 EST Performed On: 05/24/2019 10:27 EST by Paulette Bower Nurse - peterson Peripheral Nerve Block Site Marked and Visible : Yes Peripheral Nerve Block Start Date/Time : 05/24/2019 9:50 EST Verbally Confirm Pt, Site, and Procedure : Yes Site Preparation : Chlorhexidine (Hibiclens) Peripheral Nerve Block : Other: adductor canal Laterality : Right Peripheral Nerve Block Performed by : PRESLEY FATIMA MD-ANS Medication Delivery Method : Single Shot Peripheral Nerve Block Assisted by : Paulette Bower Nurse - other Ultra sound used during insertion : Yes Nerve Block Activity, Patient Tolerance : Good Peripheral Nerve Block Comment : pre op nerve block per surgeon request Peripheral Nerve Block End Date/Time : 05/24/2019 10:00 EST Paulette Bower Nurse - peterson - 05/24/2019 10:27 EST Electronically signed by Yakov, [facility] Conversion Contact Assembler Cerner at 11/04/2022 3:23 PM CDT documented in this encounter Plan of Treatment Not on file documented as of this encounter Visit Diagnoses Not on filedocumented in this encounter
--- OUTSIDE RECORDS SUMMARY | 2025-04-07 08:48 | XMS_ITS | Referral Summary ---
Author Organization [employer] ([place], [place], [place], [place]) Address [address] [place] [address] Care Team Providers Care [employer] Information Clerk Name Role Phone Unavailable Primary Care Provider Unavailabl e Social History Tobacco Use Types Packs/Day Years Used Date Smoking Tobacco: Never Assessed Sex and Gender Information Value Date Recorded Sex Assigned at Male 01/14/2022 7:13 PM CDT Legal Sex Male 7:13 PM CDT Gender Identity Male 01/14/2022 7:13 PM CDT Sexual Orientation Not on file Plan of Treatment Not on file
--- OUTSIDE RECORDS SUMMARY | 2025-04-07 08:48 | XMS_ITS | Encounter Summary ---
Author Organization Healthcare Address [address] [place] [address] Care Team Providers Care Pattern Shop Supervisor Name Role Phone Zaire Abernathy MD Primary Care Provider [phone] Encounter Details Date Type Department Care Team (Latest Contact Info) Description 02/08/2025 Travel Social History Tobacco Use Types Packs/Day Years Used Date Smoking Tobacco: Never Passive Smoke Exposure: Never Smokeless Tobacco: Never Sex and Gender Information Value Date Recorded Sex Assigned at Male 01/07/2022 3:07 PM EDT Legal Sex Male 7:28 PM EDT Gender Identity Male 01/07/2022 3:07 PM EDT Sexual Orientation Straight 01/07/2022 3: 07 PM EDT documented as of this encounter Plan of Treatment Upcoming Encounters Date Type Department Care Team (Late st Contact Info) Description 03/07/2026 10:30 AM EDT Office Visit [facility] [address] [place] [address] Yuri Holland MD [address] [address] documented as of this encounter Visit Diagnoses Not on filedocumented in this encounter Additional Health Concerns Assessment Noted Time A fall risk assessment has been complete d for the patient 02/08/2025 11:19 AM EDT A Body Mass Index follow-up plan has been documented for the patient 02/08/2025 12:13 PM EDT documented as of this encounter Care Teams Pattern Shop Supervisor Relationship Specialty Start Date End Date Zaire Abernathy MD [address] [place] [address] [place] [id number] PCP - General Internal Medicine 01/12/24 documented as of this encounter
--- OUTSIDE RECORDS SUMMARY | 2025-04-07 08:48 | XMS_ITS | Encounter Summary ---
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 [address] [address] ANTONI WADDELL V :1955 Visit Time:05/24/2019 Your Visit Summary Your Care Team Admitting Physician - NIKOLAY GARDNER MD CHRISTENSEN, CHRISTIAN, MD-KORY AVENDANO MD Attending Physician - YESSENIA SPEARS MD-LOUISE Referring Physician - YESSENIA SPEARS MD-LOUISE Your Diagnosis Unilateral primary osteoarthritis, right knee, Unilateral primary osteoarthritis, right knee Discharge Vitals Temperature 36.8 ??C Heart Rate (Monitored) 69 Respiratory Rate 16 Blood Pressure 116/69 What to do next Instructions From Your Care Team DISCHARGE PLANS: patient will have home therapy with [facility] [phone] for start of care on 05/26 Patient has a walker Discharge Follow Up Instructions: Follow up with ortho as scheduled PCP in 1 week for hospital follow up Activity: as per ortho recommendations, Discharge Activity: Other (use Special Instructions) Activity: Discharge Activity: Activity as tolerated Diet: Discharge Diet: Resume usual diet as tolerated Follow-Up Appointments Follow Up with JOHANNA COLLINS PA-C When 06/09/2019 03:30 PM [facility] Where: [address] [place] [address] [address] [place] [address]- Medications What How Much When Instructions Next Dose aspirin (aspirin 81 mg oral delayed release tablet) 1 Tablet(s) Oral Two Times A Day Pickup at [facility] [place], [place] docusate (Colace 100 mg oral capsule) 1 Capsule(s) Oral Two Times A Day Pickup at [facility] [place] gabapentin (gabapentin 300 mg oral capsule) 1 Capsule(s) Oral Once a day (at bedtime) HYDROmorphone (Dilaudid 2 mg oral tablet) 1 Tablet(s) Oral Every 6 Hours as needed for as needed for pain meloxicam (Mobic 15 mg oral tablet) 1 Tablet(s) Oral Every Day multivitamin Oral Every Day oxyCODONE (oxyCODONE 5 mg oral tablet) 1 Tablet(s) Oral Every 4 Hours as needed for Pain (Moderate 4-6) ramipril (ramipril 2.5 mg oral capsule) 2.5 Milligram(s) Oral Every Day Duration: 30 Day(s) Pickup at [facility] [place] traMADol (traMADol 50 mg oral tablet) 1 Tablet(s) Oral Interval Every 6 Hours cholecalciferol (Vitamin D3) 200 IU Oral Every Day chondroitin/ glucosamine/ methylsulfonylmethane (Glucosamine & Chondroitin with MSM) 1500 mg/1200 mg Oral Every Day fluticasone-salmeterol (Advair Diskus 250 mcg-50 mcg inhalation powder) 1 Puff(s) Inhalation Two Times A Day as needed for Shortness of Breath only used in spring and summer for exercise induced asthma levothyroxine 50 Microgram(s) Oral Every Day mirabegron (Myrbetriq) 50 Milligram(s) Oral Every Day montelukast 10 Milligram(s) Oral Every Day Non Formulary (resveratrol) 300 Milligram(s) Oral Every Day Non Formulary (triple action joint health) 1 Tablet(s) Oral Every Day ocular lubricant (Systane Ultra Preservative Free ophthalmic solution) 1 Drop(s) Eyes Both Two Times A Day as needed for as needed for dry eyes omega-3 polyunsaturated fatty acids (Fish Oil) 1,200 Milligram(s) Oral Every Day sertraline 100 Milligram(s) Oral Every Day Pharmacy Information [facility] [place], [place]: [address] [facility] [address] [phone] Take your medications faithfully. Do NOT skip medication. Do NOT stop taking medications without the direction of a physician. Carry a list of your medications with you at all times, and take this medication list with you to your first follow up visit. Report any side effects. Avoid herbal remedies unless discussed with your physician. As part of your treatment plan, your physician may have prescribed a limited course of a controlled substance. This medication may be given to help people with moderate or severe pain or for other medical conditions, but there are risks involved with treatment. Common side effects may include nausea, constipation, drowsiness, sweating, itching, dry mouth, and rash. More serious side effects may include cognitive and motor impairment, like problems with thinking, concentrating, alertness, and movement (e.g. slowed reflexes), and driving and operating heavy machinery can be dangerous. It is important for you to talk to your physician if you have these side effects or questions. These controlled substances can produce physical dependence and be habit-forming if taken for an extended period of time, which means that the body has gotten used to them and may experience withdrawal symptoms if they are abruptly stopped. Withdrawal symptoms can include runny nose, sweating, goose bumps, diarrhea, abdominal cramping, rapid heartbeat, difficulty sleeping, and nervousness. Please dispose of unused and medications per your retail pharmacy guidance. Allergies No Known Allergies Immunizations This Visit No Immunizations Found Education Materials What to expect after the Procedure: After the procedure, it is common to have: ??? Pain and swelling. ??? A small amount of blood or clear fluid coming from your incision for up to 7 days. ??? It is normal to have a moderate amount of bleeding from the site of the drain that was pulled on the morning after surgery. You can hold pressure on the area for 3-5 minutes and cover with a bandage as needed. Diet: ??? Resume usual diet ??? No alcoholic beverages while taking pain medication ??? Drink 8-10 glasses of water a day to prevent constipation from pain medication ??? Increase fiber to help prevent constipation. Straining can cause increased pressure and pain in your incision area ??? Increase protein to promote healing Driving: ??? Do not drive until your health care provider approves. Ask your health care provider when it is safe to drive if you have an immobilizer on your knee. ??? Do not drive or operate heavy machinery while taking prescription pain medicine. ??? Do not drive for 24 hours if you received a sedative. Activity: ??? Do not lift anything that is heavier than 10 lb (4.5 kg) until your health care provider approves. ??? No strenuous activity ??? Avoid high-impact activities, including running, jumping rope, and jumping jacks. ??? Avoid sitting for a long time without moving. Get up and move around at least every few hours. ??? Keep legs elevated while seated and place surgery leg on 2-3 pillows, this will decrease swelling ??? Continue doing blue foam and scott basin ???tub time?? 3 times a day for 30 minutes at a time. More often is better. ??? Continue using walker until cleared by physical therapy Bathing: ??? Do not take baths, swim, or use a hot tub for one month after surgery. ??? May shower on the third day after surgery by covering incision with Glad Brand Press and Seal saran wrap. After showering, dry off completely BEFORE removing saran wrap. ??? Use Press and Seal saran wrap to shower for one month after surgery ??? You must be seated to shower until you are no longer using the walker Other: ??? Take aspirin 81mg two times daily for 45 days. ??? Remove samantha wrap and cotton on 05/26. Cover incision with white gauze squares and tube netting. Change white gauze squares daily and the tube netting as needed for 7 days. If there is any drainage after 7 days, call the office and let them know. ??? Sleep in the knee immobilizer for 1 week. ??? Continue tub time with the scott tub and blue foam at least 3 times daily for at least 30 minutes each time. ??? Use ice therapy for 20-30 minutes at a time and leave off for 20-30 minutes at a time. Always keep a towel or cloth between the ice wrap and your skin. Remember to use water with either ice or frozen water bottles in the polar care. ??? Continue to use Incentive Spirometer 10 times an hour while awake for one month to help prevent pneumonia Contact a health care provider if: ??? You have more redness, swelling, or pain around your incision. ??? You have more fluid or blood coming from your incision. ??? Your incision or drain site feels warm to the touch. ??? You have pus or a bad smell coming from your incision. ??? You have a fever. ??? Your incision breaks open after your health care provider removes your sutures, skin glue, or adhesive tape. ??? Your prosthesis feels loose. ??? You have knee pain that does not go away. DVT: Blood Clot Blood clots are a common risk after an orthopedic surgery Symptoms: ??? Swelling of your leg or arm, especially if one side is much worse. ??? Warmth and redness of your leg or arm, especially if one side is much worse. ??? Pain in your arm or leg. If the clot is in your leg, symptoms may be more noticeable or worse when you stand or walk. ??? A feeling of pins and needles, if the clot is in the arm. The symptoms of a DVT that has traveled to the lungs (pulmonary embolism, PE) usually start suddenly and include: ??? Shortness of breath while active or at rest. ??? Coughing or coughing up blood or blood-tinged mucus. ??? Chest pain that is often worse with deep breaths. ??? Rapid or irregular heartbeat. ??? Feeling light-headed or dizzy. ??? Fainting. ??? Feeling anxious. ??? Sweating. There may also be pain and swelling in a leg if that is where the blood clot started. How is this prevented? Exercise regularly. For at least 30 minutes every day, engage in: ? Activity that involves moving your arms and legs. ? Activity that encourages good blood flow through your body by increasing your heart rate. ??? Exercise your arms and legs every hour during long-distance travel (over 4 hours). ??? Drink plenty of water and avoid drinking alcohol while traveling. ??? Avoid sitting or lying in bed for long periods of time without moving your legs. ??? Maintain a weight that is appropriate for your height. Ask your health care provider what weight is healthy for you. ??? If you are a woman who is over 35 years of age, avoid unnecessary use of medicines that contain estrogen. These include control pills. ??? Do not smoke, especially if you take estrogen medicines. If you need help quitting, ask your health care provider. ??? Wear compression stockings (if told by your health care provider) to help prevent blood clots from forming. High Fiber/High Protein Diet High fiber foods: To prevent constipation ??? Grains Whole-grain breads. Multigrain cereal. Oats and oatmeal. Brown rice. Barley. Bulgur wheat. Millet. Bran muffins. Popcorn. Freedom wafer crackers. ??? Vegetables Sweet potatoes. Spinach. Kale. Artichokes. Cabbage. Broccoli. Green peas. Carrots. Squash. ??? Fruits Berries. Pears. Apples. Oranges. Avocados. Prunes and raisins. Dried figs. ??? Meats and Other Protein Sources [place], kidney, gallagher, and soy beans. Split peas. Lentils. Nuts and seeds. ??? Dairy Fiber-fortified yogurt. ??? Beverages Fiber-fortified soy milk. Fiber-fortified orange juice. ??? Other Fiber bars. High-protein foods: To promote healing High-protein foods contain 4 grams (4 g) or more of protein per serving. They include: ??? Beef, ground sirloin (cooked) ??? 3 oz have 24 g of protein. ??? Cheese (hard) ??? 1 oz has 7 g of protein. ??? Chicken breast, boneless and skinless (cooked) ??? 3 oz have 13.4 g of protein. ??? Cottage cheese ??? 1/2 cup has 13.4 g of protein. ??? Egg ??? 1 egg has 6 g of protein. ??? Fish, filet (cooked) ??? 1 oz has 6???7 g of protein. ??? Garbanzo beans (canned or cooked) ??? 1/2 cup has 6???7 g of protein. ??? Kidney beans (canned or cooked) ??? 1/2 cup has 6???7 g of protein. ??? [place]yers (cooked) ??? 3 oz has 24 g of protein. ??? Milk ??? 1 cup (8 oz) has 8 g of protein. ??? Nuts (peanuts, pistachios, almonds) ??? 1 oz has 6 g of protein. ??? Peanut butter ??? 1 oz has 7???8 g of protein. ??? Pork tenderloin (cooked) ??? 3 oz has 18.4 g of protein. ??? Pumpkin seeds ??? 1 oz has 8.5 g of protein. ??? Soybeans (roasted) ??? 1 oz has 8 g of protein. ??? Soybeans (cooked) ??? 1/2 cup has 11 g of protein. ??? Soy milk ??? 1 cup (8 oz) has 5???10 g of protein. ??? Soy or vegetable kera ??? 1 kera has 11 g of protein. ??? Bee seeds ??? 1 oz has 5.5 g of protein. ??? Tofu (firm) ??? 1/2 cup has 20 g of protein. ??? Tuna (canned in water) ??? 3 oz has 20 g of protein. ??? Yogurt ??? 6 oz has 8 g of protein. Fall Prevention ??? Use night lights. ??? Install grab bars by the toilet and in the tub and shower. Do not use towel bars as grab bars. ??? Use non-skid mats or decals on the floor of the tub or shower. ??? If you need to sit down while you are in the shower, use a plastic, non-slip stool. ??? Keep the floor dry. Immediately clean up any water that spills on the floor. ??? Remove soap buildup in the tub or shower on a regular basis. ??? Remove throw rugs and other tripping hazards from the floor. ??? Place frequently used items in loqc-ra-uiwbr places ??? Keep electrical cables out of the way. ??? Do not leave any items on the stairs. ??? Make sure that there are handrails on both sides of the stairs. Fix handrails that are broken or loose. Make sure that handrails are as long as the stairways. ??? Check any carpeting to make sure that it is firmly attached to the stairs. Fix any carpet that is loose or worn. ??? Avoid having throw rugs at the top or bottom of stairways, or secure the rugs with carpet tape to prevent them from moving. ??? Wear closed-toe shoes that fit well and support your feet. Wear shoes that have rubber soles or low heels. ??? Use mobility aids as needed, such as canes, walkers, scooters, and crutches. ??? Turn on lights if it is dark. Replace any light bulbs that burn out. ??? Set up furniture so that there are clear paths. Keep the furniture in the same spot. ??? Be aware of any and all pets. ??? Review your medicines with your healthcare provider. Some medicines can cause dizziness or changes in blood pressure, which increase your risk of falling. Hand Washing You should wash your hands whenever you think they are dirty. You should also wash your hands: ??? After: ? Working or playing outside. ? Touching an animal or its toys or leash. ? Handling livestock. ? Using the bathroom. ? Using household coordinator hotels or toxic chemicals. ? Touching or taking out the garbage. ? Touching anything dirty around your home. ? Handling soiled clothes or rags. ? Taking care of a sick child. This includes touching used tissues, toys, and clothes. ? Sneezing, coughing, or blowing your nose. ? Using public transportation. ? Shaking hands. ? Using a phone, including your mobile phone. ? Touching money. ??? Before and after: ? Preparing food. ? [...] 4. Repeat the process for each step. ??? Always keep both feet within the width of the walker's legs or wheels. ??? When using your walker, you should not feel like you need to lean forward or to the side to keep your hands on the handgrips. ??? Make sure you are following any weight-bearing instructions that your health care provider has given you. ??? Be careful not to let the walker get too far ahead of you as you walk. ??? If your walker does not glide well [...] with your stronger leg. Knee Immobilizer Brace: ??? Adjust the brace as often as needed while wearing it. It should be firm but not tight. Signs that the brace is too tight include: ? Puffiness (swelling). ? Numbness. ? Color change in your foot or ankle. ? Increased pain. tramadol (TRAM a dol) Austinp, Ultram, Ultram ER What is the most important information I should know about tramadol? MISUSE OF THIS MEDICINE CAN CAUSE ADDICTION, OVERDOSE, OR . Keep the medication in a place where others cannot get to it. Tramadol should not be given to a child younger than 12 years old. Ultram ER should not be given to anyone younger than 18 years old. Taking tramadol during may cause life-threatening withdrawal symptoms in the . Fatal side effects can occur if you use tramadol with alcohol, or with other drugs that cause drowsiness or slow your breathing. What is tramadol? Tramadol is an pain medicine similar to an opioid (sometimes called, a narcotic). Tramadol is used to treat moderate to severe pain. The extended-release form of this medicine is for psbjif-jqo-pealq treatment of pain. This form of tramadol is not for use on an as-needed basis for pain. Tramadol may also be used for purposes not listed in this medication guide. What should I discuss with my healthcare provider before taking tramadol? You should not take tramadol if you are allergic to it, or if you have: ?? severe asthma or breathing problems; ?? a blockage in your stomach or intestines; ?? if you have recently used alcohol, sedatives, tranquilizers, or narcotic medications; or ?? if you have used an MAO inhibitor in the past 14 days (such as isocarboxazid, linezolid, methylene blue injection, phenelzine, rasagiline, selegiline, or tranylcypromine). Tramadol should not be given to a child younger than 12 years old. Ultram ER should not be given to anyone younger than 18 years old. Do not give tramadol to anyone younger than 18 years old who recently had surgery to remove the tonsils or adenoids. Seizures have occurred in some people taking tramadol. Talk with your doctor about your seizure risk, which may be higher if you have ever had: ?? a head injury, epilepsy or other seizure disorder; ?? drug or alcohol addiction; or ?? a metabolic disorder. Tell your doctor if you have ever had: ?? liver or kidney disease; ?? urination problems; ?? problems with your gallbladder, pancreas, or thyroid; ?? a stomach disorder; or ?? mental illness, or suicide attempt. If you use tramadol while you are , your baby could become dependent on the drug. This can cause life-threatening withdrawal symptoms in the baby after it is born. Babies born dependent on habit-forming medicine may need medical treatment for several weeks. Do not breast-feed. Tramadol can pass into breast milk and cause drowsiness, breathing problems, or in a nursing baby. How should I take tramadol? Follow the directions on your prescription label and read all medication guides. Never use tramadol in larger amounts, or for longer than prescribed. Tell your doctor if you feel an increased urge to take more of this medicine. Never share this medicine with another person, especially someone with a history of drug abuse or addiction. MISUSE CAN CAUSE ADDICTION, OVERDOSE, OR . Keep the medicine in a place where others cannot get to it. Selling or giving away tramadol is against the law. Stop taking all other zpcugo-hfv-redxn narcotic pain medications when you start taking tramadol. Tramadol can be taken with or without food, but take it the same way each time. Swallow the capsule or tablet whole to avoid exposure to a potentially fatal overdose. Do not crush, chew, break, open, or dissolve. Never crush or break a tramadol pill to inhale the powder or mix it into a liquid to inject the drug into your vein. This practice has resulted in . Do not stop using tramadol suddenly, or you could have unpleasant withdrawal symptoms. Ask your doctor how to safely stop using tramadol. Store at room temperature away from moisture and heat. Keep track of your medicine. You should be aware if anyone is using it improperly or without a prescription. Do not keep leftover opioid medication. Just one dose can cause in someone using this medicine accidentally or improperly. Ask your pharmacist where to locate a drug take-back disposal program. If there is no take-back program, flush the unused medicine down the toilet. What happens if I miss a dose? Since tramadol is used for pain, you are not likely to miss a dose. Skip any missed dose if it is almost time for your next dose. Do not use two doses at one time. What happens if I overdose? Seek emergency medical attention or call the Poison Help line at . A tramadol overdose can be fatal, especially in a child or other person using the medicine without a prescription. Overdose symptoms may include slow heart rate, severe drowsiness, cold and clammy skin, very slow breathing, or coma. What should I avoid while taking tramadol? Do not drink alcohol. Dangerous side effects or could occur. Avoid driving or hazardous activity until you know how this medicine will affect you. Dizziness or drowsiness can cause falls, accidents, or severe injuries. What are the possible side effects of tramadol? Get emergency medical help if you have signs of an allergic reaction (hives, difficult breathing, swelling in your face or throat) or a severe skin reaction (fever, sore throat, burning in your eyes, skin pain, red or purple skin rash that spreads and causes blistering and peeling). This medicine can slow or stop your breathing, and may occur. A person caring for you should seek emergency medical attention if you have slow breathing with long pauses, blue colored lips, or if you are hard to wake up. Call your doctor at once if you have: ?? noisy breathing, sighing, shallow breathing; ?? a slow heart rate or weak pulse; ?? a light-headed feeling, like you might pass out; ?? seizure (convulsions); or ?? low cortisol levels--nausea, vomiting, loss of appetite, dizziness, worsening tiredness or weakness. Seek medical attention right away if you have symptoms of serotonin syndrome, such as: agitation, hallucinations, fever, sweating, shivering, fast heart rate, muscle stiffness, twitching, loss of coordination, nausea, vomiting, or diarrhea. Serious side effects may be more likely in older adults and those who are overweight, malnourished, or debilitated. Long-term use of opioid medication may affect fertility (ability to have children) in men or women. It is not known whether opioid effects on fertility are permanent. Common side effects may include: ?? constipation, nausea, vomiting, stomach pain; ?? dizziness, drowsiness, tiredness; ?? headache; or ?? itching. This is not a complete list of side effects and others may occur. Call your doctor for medical advice about side effects. You may report side effects to FDA at 8-617-SBE-7572. What other drugs will affect tramadol? You may have breathing problems or withdrawal symptoms if you start or stop taking certain other medicines. Tell your doctor if you also use an antibiotic, antifungal medication, heart or blood pressure medication, seizure medication, or medicine to treat HIV or hepatitis C. Opioid medication can interact with many other drugs and cause dangerous side effects or . Be sure your doctor knows if you also use: ?? cold or allergy medicines, bronchodilator asthma/COPD medication, or a diuretic ('water pill'); ?? medicines for motion sickness, irritable bowel syndrome, or overactive bladder; ?? other narcotic medications--opioid pain medicine or prescription cough medicine; ?? a sedative like Valium--diazepam, alprazolam, lorazepam, Xanax, Klonopin, Versed, and others; ?? drugs that make you sleepy or slow your breathing--a sleeping pill, muscle relaxer, medicine to treat mood disorders or mental illness; or ?? drugs that affect serotonin levels in your body--a stimulant, or medicine for depression, Parkinson's disease, migraine headaches, serious infections, or nausea and vomiting. This list is not complete and many other drugs may affect tramadol. This includes prescription and hphz-ebj-aslkszy medicines, vitamins, and herbal products. Not all possible drug interactions are listed here. Where can I get more information? Your doctor or pharmacist can provide more information about tramadol. Remember, keep this and all other medicines out of the reach of children, never share your medicines with others, and use this medication only for the indication prescribed. Every effort has been made to ensure that the information provided by [employer] ('[employer]') is accurate, up-to-date, and complete, but no guarantee is made to that effect. Drug information contained herein may be time sensitive. [employer] information has been compiled for use by healthcare practitioners and consumers in the [place] and therefore [employer] does not warrant that uses outside of the [place] are appropriate, unless specifically indicated otherwise. [employer] drug information does not endorse drugs, diagnose patients or recommend therapy. [employer] drug information is an informational resource designed to assist licensed healthcare practitioners in caring for their patients and/or to serve consumers viewing this service as a supplement to, and not a substitute for, the expertise, skill, knowledge and judgment of healthcare practitioners. The absence of a warning for a given drug or drug combination in no way should be construed to indicate that the drug or drug combination is safe, effective or appropriate for any given patient. [employer] does not assume any responsibility for any aspect of healthcare administered with the aid of information [employer] provides. The information contained herein is not intended to cover all possible uses, directions, precautions, warnings, drug interactions, allergic reactions, or adverse effects. If you have questions about the drugs you are taking, check with your doctor, nurse or pharmacist. Copyright 6480-1074 [employer]. Version: .. Revision Date: 10/28/2018. docusate (oral/rectal) (DOK ue sate) Colace, Diocto, Doc-Q-Lace, Docu, Doculase, Docusil, Docusoft S, DocuSol, Dulcolax Stool Softener, Enemeez Mini, Issa-Tin, Pedia-Lax Stool Softener, Amaya Stool Softener, Promolaxin, Silace, Surfak Stool Softener, Shama-Q-Lax What is the most important information I should know about docusate? You should not use docusate if you also use mineral oil, unless your doctor tells you to. What is docusate? Docusate is a stool softener that makes bowel movements softer and easier to pass. Docusate is used to relieve occasional constipation (irregularity). There are many brands and forms of docusate available. Not all brands are listed on this leaflet. Docusate may also be used for purposes not listed in this medication guide. What should I discuss with my healthcare provider before using docusate? You should not use docusate if you are allergic to it. Ask a doctor or pharmacist if this medicine is safe to use if you have: ?? stomach pain; ?? nausea; ?? vomiting; or ?? a sudden change in bowel habits that lasts over 2 weeks. Ask a doctor before using this medicine if you are or . Do not give this medicine to a child without medical advice. How should I use docusate? Use exactly as directed on the label, or as prescribed by your doctor. Drink plenty of liquids while you are using docusate. Measure liquid medicine carefully. Use the dosing syringe provided, or use a medicine dose-measuring device (not a kitchen spoon). Do not take the rectal enema by mouth. Rectal medicine is for use only in the rectum. Wash your hands before and after using the enema. To use the enema, lie on your left side with your left leg extended and your right leg slightly bent. Remove the cap from the applicator tip and gently insert the tip into your rectum. Slowly squeeze the bottle to empty the contents into the rectum. After using the enema, lie down on your left side for at least 30 minutes to allow the liquid to distribute throughout your intestines. Avoid using the bathroom, and hold in the enema at least 1 hour, or all night if possible. Read and carefully follow any Instructions for Use provided with your medicine. Ask your doctor or pharmacist if you do not understand these instructions. Docusate generally produces bowel movement in 12 to 72 hours. Call your doctor if your symptoms do not improve after 72 hours. You should not use docusate for longer than 1 week, unless your doctor tells you to. Store at room temperature away from moisture and heat. Do not freeze liquid medicine. What happens if I miss a dose? Since docusate is used when needed, you may not be on a dosing schedule. Skip any missed dose if it's almost time for your next dose. Do not use two doses at one time. What happens if I overdose? Seek emergency medical attention or call the Poison Help line at . What should I avoid while using docusate? Avoid using mineral oil, unless told to do so by a doctor. What are the possible side effects of docusate? Get emergency medical help if you have signs of an allergic reaction: hives; difficult breathing; swelling of your face, lips, tongue, or throat. Stop using docusate and call your doctor at once if you have: ?? rectal bleeding or irritation; or ?? no bowel movement after 72 hours. Less serious side effects may be more likely, and you may have none at all. This is not a complete list of side effects and others may occur. Call your doctor for medical advice about side effects. You may report side effects to FDA at 9-122-UGY-9361. What other drugs will affect docusate? Other drugs may affect docusate, including prescription and wdwr-utf-wbvrufy medicines, vitamins, and herbal products. Tell your doctor about all your current medicines and any medicine you start or stop using. Where can I get more information? Your pharmacist can provide more information about docusate. Remember, keep this and all other medicines out of the reach of children, never share your medicines with others, and use this medication only for the indication prescribed. Every effort has been made to ensure that the information provided by [employer]. [employer]') is accurate, up-to-date, and complete, but no guarantee is made to that effect. Drug information contained herein may be time sensitive. [employer] information has been compiled for use by healthcare practitioners and consumers in the [place] and therefore [employer] does not warrant that uses outside of the [place] are appropriate, unless specifically indicated otherwise. [employer]'s drug information does not endorse drugs, diagnose patients or recommend therapy. [employer] drug information is an informational resource designed to assist licensed healthcare practitioners in caring for their patients and/or to serve consumers viewing this service as a supplement to, and not a substitute for, the expertise, skill, knowledge and judgment of healthcare practitioners. The absence of a warning for a given drug or drug combination in no way should be construed to indicate that the drug or drug combination is safe, effective or appropriate for any given patient. [employer] does not assume any responsibility for any aspect of healthcare administered with the aid of information [employer] provides. The information contained herein is not intended to cover all possible uses, directions, precautions, warnings, drug interactions, allergic reactions, or adverse effects. If you have questions about the drugs you are taking, check with your doctor, nurse or pharmacist. Copyright 7382-7431 [employer]. Version: 4.01. Revision Date: 01/24/2019. meloxicam (jumana OKS i [place]ol[place]) Mobic, Qmiiz ODT, Vivlodex What is the most important information I should know about meloxicam? Meloxicam can increase your risk of fatal heart attack or stroke. Do not use this medicine just before or after heart bypass surgery (coronary artery bypass graft, or CABG). Meloxicam may also cause stomach or intestinal bleeding, which can be fatal. What is meloxicam? Meloxicam is a nonsteroidal anti-inflammatory drug (NSAID) that is used to treat pain or inflammation caused by osteoarthritis or rheumatoid arthritis. Meloxicam is for use in adults children at least 2 years old. The Vivlodex brand of meloxicam is for use only in adults. Meloxicam may also be used for purposes not listed in this medication guide. What should I discuss with my healthcare provider before taking meloxicam? Meloxicam can increase your risk of fatal heart attack or stroke, even if you don't have any risk factors. Do not use this medicine just before or after heart bypass surgery (coronary artery bypass graft, or CABG). Meloxicam may also cause stomach or intestinal bleeding, which can be fatal. These conditions can occur without warning while you are using meloxicam, especially in older adults. You should not use meloxicam if you are allergic to it, or if you have ever had an asthma attack or severe allergic reaction after taking aspirin or an NSAID. You should not take meloxicam disintegrating tablets (Qmiiz ODT) if you have phenylketonuria (PKU). This form of meloxicam contains phenylalanine. Tell your doctor if you have ever had: ?? heart disease, high blood pressure, high cholesterol, diabetes, or if you smoke; ?? a heart attack, stroke, or blood clot; ?? ulcers or bleeding in your stomach; ?? asthma; ?? kidney disease (or if you are on dialysis); ?? liver disease; or ?? fluid retention. Taking meloxicam during the last 3 months of may harm the unborn baby. Tell your doctor if you are or plan to become . Meloxicam may cause a delay in ovulation (the release of an egg from an ovary). You should not take meloxicam if you are undergoing fertility treatment, or are otherwise trying to get . It may not be safe to breastfeed while using this medicine. Ask your doctor about any risk. Meloxicam is not approved for use by anyone younger than 2 years old. How should I take meloxicam? Follow all directions on your prescription label and read all medication guides. Use the lowest dose that is effective in treating your condition. You may take meloxicam with or without food. Shake the oral suspension (liquid) before you measure a dose. Use the dosing syringe provided, or use a medicine dose-measuring device (not a kitchen spoon). Remove an orally disintegrating tablet from the package only when you are ready to take the medicine. Place the tablet in your mouth and allow it to dissolve, without chewing. Swallow several times as the tablet dissolves. Your dose needs may change if you switch to a different brand, strength, or form of this medicine. Avoid medication errors by using only the form and strength your doctor prescribes. Meloxicam doses are based on weight (especially in children and teenagers). Your dose needs may change if you gain or lose weight. If you use this medicine long-term, you may need frequent medical tests. Store at room temperature, away from moisture and heat. Keep the bottle tightly closed when not in use. What happens if I miss a dose? Take the medicine as soon as you can, but skip the missed dose if it is almost time for your next dose. Do not take two doses at one time. What happens if I overdose? Seek emergency medical attention or call the Poison Help line at . What should I avoid while taking meloxicam? Avoid alcohol. Heavy drinking can increase your risk of stomach bleeding. Avoid taking aspirin while you are taking meloxicam. Ask a doctor or pharmacist before using other medicines for pain, fever, swelling, or cold/flu symptoms. They may contain ingredients similar to meloxicam (such as aspirin, ibuprofen, ketoprofen, or naproxen). What are the possible side effects of meloxicam? Get emergency medical help if you have signs of an allergic reaction (hives, difficult breathing, swelling in your face or throat) or a severe skin reaction (fever, sore throat, burning eyes, skin pain, red or purple skin rash with blistering and peeling). Get emergency medical help if you have signs of a heart attack or stroke: chest pain spreading to your jaw or shoulder, sudden numbness or weakness on one side of the body, slurred speech, leg swelling, feeling short of breath. Stop using meloxicam and call your doctor at once if you have: ?? the first sign of any skin rash, no matter how mild; ?? shortness of breath (even with mild exertion); ?? swelling or rapid weight gain; ?? signs of stomach bleeding--bloody or tarry stools, coughing up blood or vomit that looks like coffee grounds; ?? liver problems--nausea, upper stomach pain, itching, tired feeling, flu-like symptoms, loss of appetite, dark urine, darlene-colored stools, jaundice (yellowing of the skin or eyes); ?? low red blood cells (anemia)--pale skin, unusual tiredness, feeling light-headed, cold hands and feet; or ?? kidney problems--little or no urination, swelling in your feet or ankles, feeling tired or short of breath. Common side effects may include: ?? stomach pain, nausea, vomiting, heartburn; ?? diarrhea, constipation, gas; ?? dizziness; or ?? cold symptoms, flu symptoms. This is not a complete list of side effects and others may occur. Call your doctor for medical advice about side effects. You may report side effects to FDA at 3-539-FHV-8079. What other drugs will affect meloxicam? Ask your doctor before using meloxicam if you take an antidepressant. Taking certain antidepressants with an NSAID may cause you to bruise or bleed easily. Tell your doctor about all your other medicines, especially: ?? cyclosporine; ?? lithium; ?? methotrexate; ?? pemetrexed; ?? sodium polystyrene sulfonate (Kayexalate); ?? a blood thinner (warfarin, Coumadin, Jantoven); ?? heart or blood pressure medication, including a diuretic or 'water pill'; or ?? steroid medicine (such as prednisone). This list is not complete. Other drugs may affect meloxicam, including prescription and fixk-jwi-ohpenzz medicines, vitamins, and herbal products. Not all possible drug interactions are listed here. Where can I get more information? Your pharmacist can provide more information about meloxicam. Remember, keep this and all other medicines out of the reach of children, never share your medicines with others, and use this medication only for the indication prescribed. Every effort has been made to ensure that the information provided by [employer] is accurate, up-to-date, and complete, but no guarantee is made to that effect. Drug information contained herein may be time sensitive. [employer] information has been compiled for use by healthcare practitioners and consumers in the [place] and therefore [employer] does not warrant that uses outside of the [place] are appropriate, unless specifically indicated otherwise. [employer] drug information does not endorse drugs, diagnose patients or recommend therapy. [employer] drug information is an informational resource designed to assist licensed healthcare practitioners in caring for their patients and/or to serve consumers viewing this service as a supplement to, and not a substitute for, the expertise, skill, knowledge and judgment of healthcare practitioners. The absence of a warning for a given drug or drug combination in no way should be construed to indicate that the drug or drug combination is safe, effective or appropriate for any given patient. [employer] does not assume any responsibility for any aspect of healthcare administered with the aid of information [employer] provides. The information contained herein is not intended to cover all possible uses, directions, precautions, warnings, drug interactions, allergic reactions, or adverse effects. If you have questions about the drugs you are taking, check with your doctor, nurse or pharmacist. Copyright 1020-2711 [employer]. Version: 13.01. Revision Date: 11/11/2018. hydromorphone (oral) (BRANDAN williamson) Hildaaudtez, Karolinealgo What is the most important information I should know about hydromorphone? MISUSE OF OPIOID MEDICINE CAN CAUSE ADDICTION, OVERDOSE, OR . Keep the medication in a place where others cannot get to it. Taking opioid medicine during may cause life-threatening withdrawal symptoms in the . Fatal side effects can occur if you use opioid medicine with alcohol, or with other drugs that cause drowsiness or slow your breathing. What is hydromorphone? Hydromorphone is an opioid medication used to treat moderate to severe pain. The extended-release form of this medicine is for iyiznw-nji-qjmeb treatment of moderate to severe pain, not for use on an as-needed basis for pain. Hydromorphone may also be used for purposes not listed in this medication guide. What should I discuss with my healthcare provider before using hydromorphone? You should not take this medicine if you have ever had an allergic reaction to hydromorphone or other narcotic medicines, or if you have: ?? severe asthma or breathing problems; ?? a blockage in your stomach or intestines; or ?? a bowel obstruction called paralytic ileus. Do not use hydromorphone if you have used an MAO inhibitor in the past 14 days. A dangerous drug interaction could occur. MAO inhibitors include isocarboxazid, linezolid, methylene blue injection, phenelzine, rasagiline, selegiline, tranylcypromine, and others. Tell your doctor if you have ever had: ?? a head injury, brain tumor, or seizures; ?? alcoholism, drug addiction, or mental illness; ?? urination problems; ?? liver or kidney disease; ?? a sulfite allergy; or ?? problems with your gallbladder, pancreas, or thyroid. If you use opioid medicine while you are , your baby could become dependent on the drug. This can cause life-threatening withdrawal symptoms in the baby after it is born. Babies born dependent on opioids may need medical treatment for several weeks. Do not breast-feed. Hydromorphone can pass into breast milk and may cause drowsiness or breathing problems in a nursing baby. How should I use hydromorphone? Follow the directions on your prescription label and read all medication guides. Never use hydromorphone in larger amounts, or for longer than prescribed. Tell your doctor if you feel an increased urge to take more of this medicine. Never share opioid medicine with another person, especially someone with a history of drug abuse or addiction. MISUSE CAN CAUSE ADDICTION, OVERDOSE, OR . Keep the medication in a place where others cannot get to it. Selling or giving away opioid medicine is against the law. Stop taking all other wxtbzs-oqq-tgwhs narcotic pain medications when you start taking hydromorphone. Swallow the capsule or tablet whole to avoid exposure to a potentially fatal overdose. Do not crush, chew, break, open, or dissolve. Measure liquid medicine carefully. Use the dosing syringe provided, or use a medicine dose-measuring device (not a kitchen spoon). Do not stop using hydromorphone suddenly, or you could have unpleasant withdrawal symptoms. Ask your doctor how to safely stop using hydromorphone. Never crush or break a hydromorphone pill to inhale the powder or mix it into a liquid to inject the drug into your vein. This can cause in . Store at room temperature away from moisture, heat, and light. Throw away any unused liquid after 90 days. Keep track of your medicine. You should be aware if anyone is using it improperly or without a prescription. Do not keep leftover opioid medication. Just one dose can cause in someone using this medicine accidentally or improperly. Ask your pharmacist where to locate a drug take-back disposal program. If there is no take-back program, flush the unused medicine down the toilet. What happens if I miss a dose? Since hydromorphone is used for pain, you are not likely to miss a dose. Skip any missed dose if it is almost time for your next dose. Do not use two doses at one time. What happens if I overdose? Seek emergency medical attention or call the Poison Help line at . A hydromorphone overdose can be fatal, especially in a child or other person using the medicine without a prescription. Overdose symptoms may include slow heart rate, severe drowsiness, muscle weakness, cold and clammy skin, pinpoint pupils, very slow breathing, or coma. What should I avoid while using hydromorphone? Do not drink alcohol. Dangerous side effects or could occur. Avoid driving or hazardous activity until you know how this medicine will affect you. Dizziness or drowsiness can cause falls, accidents, or severe injuries. What are the possible side effects of hydromorphone? Get emergency medical help if you have signs of an allergic reaction: hives; difficulty breathing; swelling of your face, lips, tongue, or throat. Opioid medicine can slow or stop your breathing, and may occur. A person caring for you should seek emergency medical attention if you have slow breathing with long pauses, blue colored lips, or if you are hard to wake up. Call your doctor at once if you have: ?? noisy breathing, sighing, shallow breathing; ?? a slow heart rate or weak pulse; ?? confusion, feelings of extreme happiness or sadness; ?? severe weakness or drowsiness; ?? a light-headed feeling, like you might pass out; ?? low cortisol levels--nausea, vomiting, loss of appetite, dizziness, worsening tiredness or weakness. Seek medical attention right away if you have symptoms of serotonin syndrome, such as: agitation, hallucinations, fever, sweating, shivering, fast heart rate, muscle stiffness, twitching, loss of coordination, nausea, vomiting, or diarrhea. Serious side effects may be more likely in older adults and those who are malnourished or debilitated. Long-term use of opioid medication may affect fertility (ability to have children) in men or women. It is not known whether opioid effects on fertility are permanent. Common side effects may include: ?? drowsiness, tiredness; ?? dizziness; ?? headache; or ?? constipation, nausea, vomiting, stomach pain. This is not a complete list of side effects and others may occur. Call your doctor for medical advice about side effects. You may report side effects to FDA at 8-232-PMS-8669. What other drugs will affect hydromorphone? Opioid medication can interact with many other drugs and cause dangerous side effects or . Be sure your doctor knows if you also use: ?? other narcotic medications--opioid pain medicine or prescription cough medicine; ?? a sedative like Valium--diazepam, alprazolam, lorazepam, Xanax, Klonopin, Versed, and others; ?? drugs that make you sleepy or slow your breathing--a sleeping pill, muscle relaxer, medicine to treat mood disorders or mental illness; or ?? drugs that affect serotonin levels in your body--a stimulant, or medicine for depression, Parkinson's disease, migraine headaches, serious infections, or nausea and vomiting. This list is not complete. Other drugs may affect hydromorphone, including prescription and jfaq-tbh-fzukhuu medicines, vitamins, and herbal products. Not all possible interactions are listed here. Where can I get more information? Your doctor or pharmacist can provide more information about hydromorphone. Remember, keep this and all other medicines out of the reach of children, never share your medicines with others, and use this medication only for the indication prescribed. Every effort has been made to ensure that the information provided by [employer] is accurate, up-to-date, and complete, but no guarantee is made to that effect. Drug information contained herein may be time sensitive. [employer] information has been compiled for use by healthcare practitioners and consumers in the [place] and therefore [employer] does not warrant that uses outside of the [place] are appropriate, unless specifically indicated otherwise. [employer] drug information does not endorse drugs, diagnose patients or recommend therapy. [employer] drug information is an informational resource designed to assist licensed healthcare practitioners in caring for their patients and/or to serve consumers viewing this service as a supplement to, and not a substitute for, the expertise, skill, knowledge and judgment of healthcare practitioners. The absence of a warning for a given drug or drug combination in no way should be construed to indicate that the drug or drug combination is safe, effective or appropriate for any given patient. [employer] [employer] does not assume any responsibility for any aspect of healthcare administered with the aid of information [employer] provides. The information contained herein is not intended to cover all possible uses, directions, precautions, warnings, drug interactions, allergic reactions, or adverse effects. If you have questions about the drugs you are taking, check with your doctor, nurse or pharmacist. Copyright 1020-5530 [employer]. Version: 9.02. Revision Date: 06/16/2018. aspirin (oral) ( pir in) Arthritis Pain, Aspir 81, Aspir-Low, Destiny Childrens Aspirin, Durlaza, Ecotrin, Ecpirin, Fasprin, Halfprin, Miniprin What is the most important information I should know about aspirin? You should not use aspirin if you have a bleeding disorder such as hemophilia, a recent history of stomach or intestinal bleeding, or if you are allergic to an NSAID (non-steroidal anti-inflammatory drug). Aspirin can cause David's syndrome, a serious and sometimes fatal condition in children. What is aspirin? Aspirin is a salicylate (ud-YTU-hy-ate). It works by reducing substances in the body that cause pain, fever, and inflammation. Aspirin is used to treat pain, and reduce fever or inflammation. Aspirin is sometimes used to treat or prevent heart attacks, strokes, and chest pain (angina). Aspirin should be used for cardiovascular conditions only under the supervision of a doctor. Aspirin may also be used for purposes not listed in this medication guide. What should I discuss with my healthcare provider before taking aspirin? Do not give this medicine to a child or teenager with a fever, flu symptoms, or chicken pox. Aspirin can cause David's syndrome, a serious and sometimes fatal condition in children. You should not use aspirin if you are allergic to it, or if you have: ?? a recent history of stomach or intestinal bleeding; ?? a bleeding disorder such as hemophilia; or ?? if you have ever had an asthma attack or severe allergic reaction after taking aspirin or an NSAID (non-steroidal anti-inflammatory drug). Tell your doctor if you have ever had: ?? asthma or seasonal allergies; ?? stomach ulcers; ?? liver disease; ?? kidney disease; ?? a bleeding or blood clotting disorder; ?? gout; or ?? heart disease, high blood pressure, or congestive heart failure. Taking aspirin during late may cause bleeding in the mother or the baby during delivery. Tell your doctor if you are or plan to become . You should not breast-feed while using this medicine. How should I take aspirin? Use exactly as directed on the label, or as prescribed by your doctor. Take with food if aspirin upsets your stomach. Do not crush, chew, break, or open an enteric-coated or delayed-release pill. Swallow it whole. The chewable tablet form of aspirin must be chewed before swallowing. If you use the orally disintegrating tablet or the dispersible tablet, follow all dosing instructions provided with your medicine. If you need surgery, tell your surgeon you currently use this medicine. You may need to stop for a short time. Do not take this medicine if you smell a strong vinegar odor in the aspirin bottle. The medicine may no longer be effective. Store at room temperature away from moisture and heat. What happens if I miss a dose? Since aspirin is used when needed, you may not be on a dosing schedule. Skip any missed dose if it's almost time for your next dose. Do not use two doses at one time. What happens if I overdose? Seek emergency medical attention or call the Poison Help line at . Overdose symptoms may include temporary hearing loss, seizure (convulsions), or coma. What should I avoid while taking aspirin? Avoid alcohol. Heavy drinking can increase your risk of stomach bleeding. If you are taking aspirin to prevent heart attack or stroke, avoid also taking ibuprofen (Advil, Motrin). Ibuprofen may make aspirin less effective. If you must use both medications, take the ibuprofen at least 8 hours before or 30 minutes after you take the aspirin (non-enteric coated form). Ask a doctor or pharmacist before using other medicines for pain, fever, swelling, or cold/flu symptoms. They may contain ingredients similar to aspirin (such as magnesium salicylate, ibuprofen, ketoprofen, or naproxen). What are the possible side effects of aspirin? Get emergency medical help if you have signs of an allergic reaction: hives; difficult breathing; swelling of your face, lips, tongue, or throat. Stop using aspirin and call your doctor at once if you have: ?? ringing in your ears, confusion, hallucinations, rapid breathing, seizure (convulsions); ?? severe nausea, vomiting, or stomach pain; ?? bloody or tarry stools, coughing up blood or vomit that looks like coffee grounds; ?? fever lasting longer than 3 days; or ?? swelling, or pain lasting longer than 10 days. Common side effects may include: ?? upset stomach, heartburn; ?? drowsiness; or ?? mild headache. This is not a complete list of side effects and others may occur. Call your doctor for medical advice about side effects. You may report side effects to FDA at 2-942-IUE-9224. What other drugs will affect aspirin? Ask your doctor before using aspirin if you take an antidepressant. Taking certain antidepressants with aspirin may cause you to bruise or bleed easily. Ask a doctor or pharmacist before using aspirin with any other medications, especially: ?? a blood thinner (warfarin, Coumadin, Jantoven), or other medication used to prevent blood clots; or ?? other salicylates such as Nuprin Backache Caplet, Kaopectate, KneeRelief, Pamprin Cramp Formula, Pepto-Bismol, Tricosal, Trilisate, and others. This list is not complete. Other drugs may affect aspirin, including prescription and rzjt-nar-cgemwwk medicines, vitamins, and herbal products. Not all possible drug interactions are listed here. Where can I get more information? Your pharmacist can provide more information about aspirin. Remember, keep this and all other medicines out of the reach of children, never share your medicines with others, and use this medication only for the indication prescribed. Every effort has been made to ensure that the information provided by [employer]. ('[employer]') is accurate, up-to-date, and complete, but no guarantee is made to that effect. Drug information contained herein may be time sensitive. [employer] information has been compiled for use by healthcare practitioners and consumers in the [place] and therefore [employer] does not warrant that uses outside of the [place] are appropriate, unless specifically indicated otherwise. [employer] drug information does not endorse drugs, diagnose patients or recommend therapy. [employer] drug information is an informational resource designed to assist licensed healthcare practitioners in caring for their patients and/or to serve consumers viewing this service as a supplement to, and not a substitute for, the expertise, skill, knowledge and judgment of healthcare practitioners. The absence of a warning for a given drug or drug combination in no way should be construed to indicate that the drug or drug combination is safe, effective or appropriate for any given patient. [employer] does not assume any responsibility for any aspect of healthcare administered with the aid of information [employer] provides. The information contained herein is not intended to cover all possible uses, directions, precautions, warnings, drug interactions, allergic reactions, or adverse effects. If you have questions about the drugs you are taking, check with your doctor, nurse or pharmacist. Copyright 9688-1460 [employer]. Version: 15.02. Revision Date: 10/19/2017. oxycodone (ox i KOE done) Oxaydo, OxyCONTIN, Oxyfast, Roxicodone, Xtampza ER What is the most important information I should know about oxycodone? MISUSE OF OPIOID MEDICINE CAN CAUSE ADDICTION, OVERDOSE, OR . Keep the medication in a place where others cannot get to it. Taking opioid medicine during may cause life-threatening withdrawal symptoms in the . Fatal side effects can occur if you use opioid medicine with alcohol, or with other drugs that cause drowsiness or slow your breathing. What is oxycodone? Oxycodone is an opioid pain medication used to treat moderate to severe pain. The extended-release form of oxycodone is for vomctj-sem-annpb treatment of pain and should not be used on an as-needed basis for pain. Oxycodone may also be used for purposes not listed in this medication guide. What should I discuss with my healthcare provider before using oxycodone? You should not use oxycodone if you are allergic to it, or if you have: ?? severe asthma or breathing problems; or ?? a blockage in your stomach or intestines. You should not use oxycodone unless you are already using a similar opioid medicine and are tolerant to it. Most brands of oxycodone are not approved for use in people under 18. OxyContin should not be given to a child younger than 11 years old. Tell your doctor if you have ever had: ?? a head injury, or seizures; ?? drug or alcohol addiction, or mental illness; ?? liver or kidney disease; ?? urination problems; or ?? problems with your gallbladder, pancreas, or thyroid. If you use opioid medicine while you are , your baby could become dependent on the drug. This can cause life-threatening withdrawal symptoms in the baby after it is born. Babies born dependent on opioids may need medical treatment for several weeks. Do not breast-feed. Oxycodone can pass into breast milk and may cause drowsiness, breathing problems, or in a nursing baby. How should I use oxycodone? documented in this encounter Plan of Treatment Not on file documented as of this encounter Visit Diagnoses Not on filedocumented in this encounter
--- OUTSIDE RECORDS SUMMARY | 2025-04-07 08:48 | XMS_ITS | Clinical Summary ---
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
--- OUTSIDE RECORDS SUMMARY | 2025-04-07 08:48 | XMS_ITS | Encounter Summary ---
Author Organization [employer] ([place], [place], [place], [place]) Address [address] [place] [address] Care Team Providers Care Client Services Manager Name Role Phone Unavailable Primary Care Provider Unavailabl e Encounter Details Date Type Department Care Team (Late st Contact Info) Description 05/24/[address] 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 Name: HANNAHANTONI Pawan /Sex: 1955 Male Med Rec #: [id number] Physician: YESSENIA SPEARS MD-ORT Financial #: [id number] Pt. Type: O Room/Bed: [facility] Admit/Disch: 05/24/19 04:46:00 - Institution: [facility] [place] Case Attendance Entry 1 Entry 2 Entry 3 Case Attendee YESSENIA SPEARS BROWNING, JANICE R, Warner, Missy M Rn -ORT RABBIT DRESSER-ANS Role Performed Surgeon/Proceduralist, DATA WAREHOUSE ARCHITECT/Nurse Solar Field Installation Crew Member Facilities Plant Engineer, First First Time In 05/24/19 12:00:00 05/24/19 11:28:00 05/24/19 11:28:00 Time Out 05/24/19 13:10:00 05/24/19 13:10:00 05/24/19 13:10:00 Procedure Knee Unicompartmental Knee Unicompartmental Knee Unicompartmental Replacement Replacement Replacement Other Attendee Superficial Wound Closed By: Last Modified By: Namita Laird Rn Warner, Missy M, Namita Low, Pepe 05/24/19 13:10:24 05/24/19 13:10:24 05/24/19 13:10:24 Entry 4 Entry 5 Entry 6 Case Attendee Soy Gee, Ernesto Brody, Scrub DORA, JOVANNA, CSA Tech Role Performed Scrub, First Scrub, Second Chain Pegger, First Time In 05/24/19 11:28:00 05/24/19 11:28:00 05/24/19 11:28:00 Time Out 05/24/19 13:10:00 05/24/19 13:10:00 05/24/19 13:10:00 Procedure Knee Unicompartmental Knee Unicompartmental Knee Unicompartmental Replacement Replacement Replacement Other Attendee Superficial Wound Closed By: Last Modified By: Namita Laird Rn Warner, Missy M, Rn Warner, Missy M, Pepe 05/24/19 13:10:24 05/24/19 13:10:24 05/24/19 13:10:24 Entry 7 Entry 8 Entry 9 Case Attendee SWATI RUBI, DINAH ARGUETA, ATTENDEE HARMAN STAHL, PEPE Role Performed Physician video production assistant Vendor Facilities Plant Engineer, Second Time In 05/24/19 11:28:00 05/24/19 11:28:00 05/24/19 11:28:00 Time Out 05/24/19 13:10:00 05/24/19 13:10:00 05/24/19 11:30:00 Procedure Knee Unicompartmental Knee Unicompartmental Knee Unicompartmental Replacement Replacement Replacement Other Attendee NATALY BAILEY Superficial Wound Closed By: Last Modified By: Namita Laird, Rn Laird, Pepe Babb Missy M, Rn 05/24/19 13:10:24 05/24/19 13:10:24 05/24/19 13:10:24 Entry 10 Case Attendee TIARRA MATUTE, DATA WAREHOUSE ARCHITECT Role Performed DATA WAREHOUSE ARCHITECT/Nurse Solar Field Installation Crew Member Time In 05/24/19 11:57:00 Time Out 05/24/19 12:27:00 Procedure Knee Unicompartmental Replacement Other Attendee LUNCH Superficial Wound Closed By: Last Modified By: Namita Laird Rn 05/24/19 13:10:24 [facility] IntraOp Case Attendance Audit 05/24/19 13:10:24 Cost Accounting Manager: [id number] Modifier: [id number] <+> Time Out 1 <*> Procedure Knee Unicompartmental Replacement 2 <+> Time Out 2 <*> Procedure Knee Unicompartmental Replacement 3 <+> Time Out 3 <*> Procedure Knee Unicompartmental Replacement 4 <+> Time Out 4 <*> Procedure Knee Unicompartmental Replacement 5 <+> Time Out 5 <*> Procedure Knee Unicompartmental Replacement 6 <+> Time Out 6 <*> Procedure Knee Unicompartmental Replacement 7 <+> Time Out 7 <*> Procedure Knee Unicompartmental Replacement 8 <+> Time Out 8 <*> Procedure Knee Unicompartmental Replacement 9 <*> Procedure Knee Unicompartmental Replacement 10 <*> Procedure Knee Unicompartmental Replacement 05/24/19 12:44:31 Cost Accounting Manager: [id number] Modifier: [id number] <+> Time Out 10 <*> Procedure Knee Unicompartmental Replacement 05/24/19 12:02:01 Cost Accounting Manager: [id number] Modifier: [id number] <*> Time In 05/24/19 11:28:00 1 <*> Procedure Knee Unicompartmental Replacement 05/24/19 12:01:25 Cost Accounting Manager: [id number] Modifier: [id number] <+> Time In 1 <*> Procedure Knee Unicompartmental Replacement 2 <+> Time In 2 <*> Procedure Knee Unicompartmental Replacement 3 <+> Time In 3 <*> Procedure Knee Unicompartmental Replacement 4 <+> Time In 4 <*> Procedure Knee Unicompartmental Replacement 5 <+> Time In 5 <*> Procedure Knee Unicompartmental Replacement 6 <+> Time In 6 <*> Procedure Knee Unicompartmental Replacement 7 <+> Time In 7 <*> Procedure Knee Unicompartmental Replacement 8 <+> Time In 8 <*> Procedure Knee Unicompartmental Replacement 9 <+> Time In 9 <+> Time Out 9 <*> Procedure Knee Unicompartmental Replacement <+> 10 Case Attendee <+> 10 Role Performed <+> 10 Time In <+> 10 Procedure <+> 10 Other Attendee 05/24/19 11:28:41 Cost Accounting Manager: [id number] Modifier: [id number] <+> 9 Case Attendee <+> 9 Role Performed <+> 9 Procedure [facility] IntraOp Case Times Entry 1 Patient In Room Time 05/24/19 11:28:00 Out Room Time 05/24/19 13:10:00 Anesthesia Start Time 05/24/19 11:28:00 Stop Time 05/24/19 13:10:00 Anesthesia Ready 05/24/19 11:28:00 Surgery / Procedure Times Start Time 05/24/19 12:02:00 Stop Time 05/24/19 13:02:00 Last Modified By: Namita Laird Rn 05/24/19 13:10:22 [facility] IntraOp Case Times Audit 05/24/19 13:10:22 Cost Accounting Manager: [id number] Modifier: [id number] <+> 1 Out Room Time <+> 1 Stop Time <+> 1 Stop Time 05/24/19 12:02:29 Cost Accounting Manager: [id number] Modifier: [id number] <+> 1 Start Time [facility] IntraOp Cautery Entry 1 ESU Identification Cautery Type Monopolar ESU ID Number [id number] ID Type Hospital Number Cautery Settings Cut Setting 70 Coag Setting 70 ESU Grounding Pad Ground Pad Type Adult Grounding Pad Site Left Lower Abdomen Grounding Pad Namita Laird Rn Applied By Grounding Pad Site Warm, dry and intact Skin Condition Before Cautery Grounding Pad Site Unchanged Skin Condition After Cautery Last Modified By: Namita Laird Rn 05/24/19 10:17:36 [facility] IntraOp Communication Entry 1 Entry 2 Communication To Family/Significant other Family/Significant other Comment START Communication By Namita Laird, Rn Date and Time Last Modified By: Namita Laird Rn Namita Laird Rn 05/24/19 10:17:45 05/24/19 12:02:14 [facility] IntraOp Communication Audit 05/24/19 12:02:14 Cost Accounting Manager: [id number] Modifier: [id number] <+> 2 Communication To [facility] IntraOp Counts Verification Entry 1 Entry 2 Procedure Knee Unicompartmental Knee Unicompartmental Replacement Replacement Count Info Count Type Sponge, Sharps Sponge, Sharps Counts Verification Baseline/pre-procedure Before wound closure Sequence Count Results Not Applicable Correct, surgeon notified If Incorrect or Waived complete the Counts Action Taken form: If Intentional Retention, complete the Intential Retention form: Counts Performed By Count Performed By Soy Gee, ST Soy Gee, ST (Scrub) Count Performed By Namita Laird Rn Warner, Missy M Rn (RN) Last Modified By: Namita aLird Rn Warner, Missy M, Rn 05/24/19 10:18:12 05/24/19 12:44:42 [facility] IntraOp Counts Verification Audit 05/24/19 12:44:42 Cost Accounting Manager: [id number] Modifier: [id number] <*> Procedure Knee Unicompartmental Replacement 2 <+> Count Performed By (Scrub) 2 <+> Count Performed By (RN) [facility] IntraOp Counts Final Entry 1 Procedure Knee Unicompartmental Replacement Final Count Info Count Type Sponge, Sharps Counts Verification Skin Closure/end of Sequence procedure Count Results Correct, surgeon notified Counts Performed By Count Performed By Ernesto Duckworth Scrub (Scrub) Tech Count Performed By Namita Laird Rn (RN) Last Modified By: Namita Laird Rn 05/24/19 12:53:16 [facility] IntraOp Counts Final Audit 05/24/19 12:53:16 Cost Accounting Manager: [id number] Modifier: [id number] <*> Procedure Knee Unicompartmental Replacement 1 <+> Count Performed By (Scrub) 1 <+> Count Performed By (RN) [facility] IntraOp Cultures and Spec Summary Entry 1 Cultrures and Specimens Specimen Ordered: Yes Test(s) Routine/Path-Lab Requested/Final Disposition Last Modified By: Namita Laird Rn 05/24/19 10:18:21 [facility] IntraOp Departure from OR Entry 1 Integumentary Assessment Integumentary WDL Assessment WDL Transfer/Handoff Transfer to PACU Phase I Handoff Method Bedside/Face to face Post-op Transport Bed (including Via specialty) Patient Transport ESTEFANIA SY, Accompanied by Eitan ADRIAN Missy M, Rn Last Modified By: Namita Laird Rn 05/24/19 10:18:23 [facility] IntraOp Drains and Tubes Entry 1 Device Type Hemovac Size 1/8 Drain/Tube Activity Inserted Device Location RIGHT KNEE Method of Drainage Compression Last Modified By: Namita Laird Rn 05/24/19 10:18:35 [facility] IntraOp Dressing and Packing Entry 1 Type Dressing Location RIGHT LEG Wound Dressing Item Pelon, 4x4's, Xeroform Supplemental Limb immobilizer, Cold Applications pack Applied By SWATI RUBI PAC Last Modified By: Namita Laird Rn 05/24/19 10:18:44 [facility] IntraOp Fire Risk Assessment Entry 1 Fire Info Surgical Site or 0- No Incision Above the Xyphoid Open O2 Source 0- No (Mask or Cannula) Available Ignition 1- Yes (ESU, Laser, Light Source) Fire Risk 1 Assessment Score Fire Score Fire Risk Yes Assessment Complete Fire Risk Namita Laird, Mail Carrier Technician Verified By Fire Risk 05/24/19 12:00:00 Assessment Verified Date/Time Fire Risk High Risk Protocol Yes Implemented Standard Fire Yes Safety Precautions Followed Last Modified By: Namita Laird Rn 05/24/19 12:01:50 [facility] IntraOp General Case Fisher Net 1 Case Information OR OR 06 [facility] [place] 1 Room Verified Yes Wound Class I - Clean Specialty SN Orthopedic Anesthesia Type General ASA Class 2 Diagnosis Preop Diagnosis DJD Postop Same As Preop Yes Postop Diagnosis DJD Last Modified By: Namita Laird Rn 05/24/19 11:56:32 [facility] IntraOp General Case Data Audit 05/24/19 11:56:32 Cost Accounting Manager: [id number] Modifier: [id number] <+> 1 ASA Class [facility] IntraOp Implant Log Entry 1 Entry 2 Entry 3 Type Implant (Synthetic) Implant (Synthetic) Implant (Synthetic) Implant Log Implant Type Bone Cement Hardware Hardware Tissue Implant Type Implant CEMENT BONE COBALT HV OXD ANATOMIC BRG SZ-5 COMP TIB UNIKNEE OX RT Identification [id number] Description Implant Quantity 1 1 1 Implant Site RIGHT KNEE RIGHT KNEE RIGHT KNEE Implant Identification Model Number Implant Identification Serial Number Implant [id number] Identification Lot Number Implant Dj Surg:Encore Biomet Biomet:Ar[employer]k Identification Med:Jose Angel Lead Presser Name: Implant [id number] Identification Catalog Number Implant Size Implant Has an Yes Yes Yes Expiration Date Implant Expiration 09/09/20 02/22/22 03/22/29 Date Wasted Radioactive Material Time Implanted Tissue Implant Continue for Tissue Implant Documentation Tissue Identification Number Graft Prep Per Lead Presser Instructions: Tissue Preparation Method: Reconstitution Solution: Reconstitution Solution Lot Number Reconstitution Solution Expiration Date: Thawing Solution Thawing Solution Lot Number Thawing Solution Expiration Date Preparation Materials, Other Preparation Materials, Other Lot Number Preparation Materials, Other Expiration Date Tissue Prepared/Processed By Lead Presser Paperwork Completed Implant Type Comment Last Modified By: Namita Laird Rn Warner, Missy M, Rn Warner, Missy M, Rn 05/24/19 12:35:46 05/24/19 12:35:46 05/24/19 12:35:46 Entry 4 Type Implant (Synthetic) Implant Log Implant Type Hardware Tissue Implant Type Implant COMP FEM DARIEL TWIN Identification PEGGED [id number] Description Implant Quantity 1 Implant Site RIGHT KNEE Implant Identification Model Number Implant Identification Serial Number Implant [id number] Identification Lot Number Implant Biomet Identification Lead Presser Name: Implant [id number] Identification Catalog Number Implant Size Implant Has an Yes Expiration Date Implant Expiration 02/17/29 Date Wasted Radioactive Material Time Implanted Tissue Implant Continue for Tissue Implant Documentation Tissue Identification Number Graft Prep Per Lead Presser Instructions: Tissue Preparation Method: Reconstitution Solution: Reconstitution Solution Lot Number Reconstitution Solution Expiration Date: Thawing Solution Thawing Solution Lot Number Thawing Solution Expiration Date Preparation Materials, Other Preparation Materials, Other Lot Number Preparation Materials, Other Expiration Date Tissue Prepared/Processed By Lead Presser Paperwork Completed Implant Type Comment Last Modified By: Namita Laird Rn 05/24/19 12:35:46 [facility] IntraOp Implant Log Audit 05/24/19 12:35:46 Cost Accounting Manager: [id number] Modifier: [id number] <+> 1 Implant Identification Description <+> 1 Implant Identification Lot Number <+> 1 Implant Identification Lead Presser Name: <+> 1 Implant Expiration Date <+> 1 Implant Identification Catalog Number <+> 2 Implant Identification Description <+> 2 Implant Identification Lot Number <+> 2 Implant Identification Lead Presser Name: <+> 2 Implant Expiration Date <+> 2 Implant Identification Catalog Number <+> 3 Implant Identification Description <+> 3 Implant Identification Lot Number <+> 3 Implant Identification Lead Presser Name: <+> 3 Implant Expiration Date <+> 3 Implant Site <+> 3 Implant Quantity <+> 3 Implant Identification Catalog Number <+> 3 Implant Type <+> 3 Implant Has an Expiration Date <+> 3 Type <+> 4 Implant Identification Description <+> 4 Implant Identification Lot Number <+> 4 Implant Identification Lead Presser Name: <+> 4 Implant Expiration Date <+> 4 Implant Site <+> 4 Implant Quantity <+> 4 Implant Identification Catalog Number <+> 4 Implant Type <+> 4 Implant Has an Expiration Date <+> 4 Type [facility] IntraOp Intraoperative Assessment Entry 1 Handoff Method Bedside/Face to face Valid History / Yes Physical in Chart Preoperative Yes Checklist Reviewed/Evaluated Allergies Reviewed Yes Patient is Latex No Sensitive Skin Assessment Yes Verified Present Upon IVs Arrival to OR Last Modified By: Namita Laird Rn 05/24/19 10:22:30 [facility] IntraOp Intraoperative Assessment Audit 05/24/19 10:22:30 Cost Accounting Manager: [id number] Modifier: [id number] <+> 1 Patient is Latex Sensitive <+> 1 Valid History / Physical in Chart <+> 1 Handoff Method [facility] IntraOp Intraoperative Equipment Entry 1 Type Equipment Equipment Equipment Angel Suction System Setting HIGH Intraop Monitoring Electrocardiogram Three lead placement (ECG) Electrode Placement Blood Pressure Non-Invasive BP Device Source Antiembolic Devices Antiembolic Devices Sequential compression device, knee high Antiembolic Device Left Location Scopes Photo/Video Documentation Photo No Video No Last Modified By: Namita Laird Rn 05/24/19 10:20:20 [facility] IntraOp Medication Admin Entry 1 Entry 2 Entry 3 Medication/Irrigant hydrogen peroxide 3% - ANESTHETIC TRANEXAMIC ACID [id number] COCKTAIL-SPEARS 1000MG/10 ML [id number] Combo Med List Time Administered 05/24/19 11:28:00 05/24/19 11:28:00 05/24/19 11:28:00 Route of IRRIGANT Administration Dose Dose 16 Unit of Measure ml Volume QS Administered By YESSENIA SPEARS MD-ORT Procedure Irrigation Irrigant Volume In Irrigant Volume Out Last Modified By: Namita Laird Rn Warner, Missy M, Rn Namita Laird Rn 05/24/19 12:04:14 05/24/19 12:04:14 05/24/19 12:04:14 Entry 4 Medication/Irrigant vancomycin 1Gm vial - [id number] Combo Med List Time Administered 05/24/19 11:28:00 Route of Administration Dose Dose Unit of Measure Volume Administered By Procedure Irrigation Irrigant Volume In Irrigant Volume Out Last Modified By: Namita Laird Rn 05/24/19 12:04:14 [facility] IntraOp Medication Admin Audit 05/24/19 12:04:14 Cost Accounting Manager: [id number] Modifier: [id number] <*> Medication/Irrigant hydrogen peroxide 3% - [id number] 1 <+> Time Administered 2 <*> Medication/Irrigant ANESTHETIC COCKTAIL-REGAN 2 <+> Time Administered 3 <*> Medication/Irrigant TRANEXAMIC ACID 1000MG/10 ML [id number] 3 <+> Time Administered 4 <*> Medication/Irrigant vancomycin 1Gm vial - [id number] 4 <+> Time Administered [facility] IntraOp Patient Positioning Entry 1 Procedure Knee Unicompartmental Replacement Body Position Supine Left Arm Position Secured on padded arm board Right Arm Position Secured on padded arm board Left Leg Position Secured in stirrup Right Leg Position Secured in Leg Carbajal Feet Uncrossed Yes Pressure Points Yes Checked Positioning Devices Arm Board, Other, Pillows, Safety Strap, Chest, Sand bags, Stirrups/Leg Carbajal, Boot Device Position [place] LEG CARBAJAL TO OPERATIVE LEG; [place]ARR[place] LEG CARBAJAL TO NON-OP LEG Positioned By Namita Laird, Pepe, JOVANNA JOHN CSA Position Verified Positioning Yes Verified by Anesthesia Positioning Yes Verified by Surgeon Last Modified By: Namita Laird Rn 05/24/19 10:21:08 [facility] IntraOp Sign In Entry 1 Patient, Site, Yes Procedure Identified Surgical Consent Yes Confirmed Relevant Surgical Yes Documents Available Surgical Site Yes Marked by person performing procedure Anesthesia Machine Yes Check Completed Medication Checks Yes Completed Allergies Yes Airway Difficult No Airway/Aspiration Risk Difficult Yes Airway/Aspiration Intervention Equipment Available Blood Loss Risk Yes Blood Loss Yes Intervention Equipment Prepared and Ready Blood Identifiers Not applicable Verified Per Policy Hypothermia Risk Yes Warming Measures Yes Taken Last Modified By: Namita Laird Rn 05/24/19 10:21:20 [facility] Intra Op Sign Out Entry 1 RN Confirmation Surgical Yes Procedure(s) Identified Instrument, Sponge Yes and Sharps Counts Correct/Documented Equipment Problems N/A Documented Specimen Labeled Yes Correctly Urinary Catheter N/A Documented in IView [place] Patient Yes Recovery Concerns Reviewed with Anesthesia Provider, Surgeon and RN [place] Patient Yes Management Concerns Reviewed with Anesthesia Provider, Surgeon and RN Safety Checklist Yes Elements Complete? RN Sign Out Namita Laird Rn Signature RN Sign Out 05/24/19 12:54:00 Signature Date/Time Plan of Care Outcome - Fire Risk OUTCOME STATEMENT: Goal met Patient is free from injury related to surgical fire Plan of Care Outcome - Pt Positioning OUTCOME STATEMENT: Goal met Absence of signs and symptoms of positioning injury. Plan of Care Outcome - Skin Prep OUTCOME STATEMENT: Goal met Intraoperative care is consistent with measures to prevent infection Plan of Care Outcome - Xray/Images OUTCOME STATEMENT: N/A Absence of observable signs or symptoms of radiation injury Plan of Care Outcome - Counts OUTCOME STATEMENT: Goal met Absence of signs and symptoms of injury related to extraneous objects Last Modified By: Namita Laird Rn 05/24/19 12:53:53 [facility] Intra Op Sign Out Audit 05/24/19 12:53:53 Cost Accounting Manager: [id number] Modifier: [id number] <+> 1 Urinary Catheter Documented in IView 05/24/19 12:53:45 Cost Accounting Manager: [id number] Modifier: [id number] <+> 1 Equipment Problems Documented [facility] IntraOp Skin Prep Entry 1 Procedure Knee Unicompartmental Replacement Prescribed Yes Pre-Surgical Prep Completed Prep Area RIGHT LEG Intraop Prep Integumentary WDL Assessment WDL Prep Agents DuraPrep, Alcohol Prep by Namita Laird, Rn Skin Prep Comment PRE FOOT 1ST TO [place], DOWN SHEET, STOCKINEETE, WITH SCRUB HOLDING FOOT, PREP REST OF LEG Hair Removal Methods No hair removal performed Last Modified By: Namita Laird Rn 05/24/19 10:21:33 [facility] IntraOp Surgical Procedures Entry 1 Procedure Knee Unicompartmental Replacement Additional RIGHT PARTIAL KNEE Procedure REPLACEMENT Description Primary Procedure Yes Primary Surgeon YESSENIA SPEARS MD-ORT Start 05/24/19 12:02:00 Stop 05/24/19 13:02:00 Anesthesia Type General Specialty SN Orthopedic Wound Class I - Clean Last Modified By: Namita Laird Rn 05/24/19 13:10:28 [facility] IntraOp Surgical Procedures Audit 05/24/19 13:10:28 Cost Accounting Manager: [id number] Modifier: [id number] <+> 1 Start <+> 1 Stop [facility] IntraOp Temp Regulation Devices Entry 1 Temp Regulation Temperature Forced Air Warming Regulation Device device Temperature Upper body Regulation Site Temperature Device 43 Setting Temperature ESTEFANIA SY Melissa, Regulation Device RABBIT DRESSER-ANS Applied by Last Modified By: Namita Laird Rn 05/24/19 10:21:40 [facility] IntraOp Time Out Entry 1 Procedure to be Knee Unicompartmental Performed Replacement Time Out Time Out Pause Time 05/24/19 12:00:00 All activity Yes suspended (unless life threatening emergency) Team Verbally Correct patient Confirms Information identity, Correct side and site are marked, Consent form is present and accurate, Agreement on the procedure to be done, Correct patient position, Relevant images/results properly labeled/appropriately displayed, Confirm antibiotics have been administered, Confirm the skin prep has dried, Confirm prosthesis/implant/devic e is present, Performed in location of procedure after prepped/draped Antibiotic Yes Prophylaxis Administered Or In Progress Within the Last 60 Minutes Beta [place] N/A Administered Venous N/A Thromboembolism Prophylaxis Required Anticipated Critical Events Surgeon None expected Anesthesia Provider None expected Nursing Assures Sterility of instruments, Implant Availability Essential Imaging Yes Labeled and Displayed Last Modified By: Namita Laird Rn 05/24/19 12:01:44 [facility] IntraOp Time Out Audit 05/24/19 12:01:44 Cost Accounting Manager: [id number] Modifier: [id number] <+> Time Out Pause Time 1 <*> Procedure to be Performed Knee Unicompartmental Replacement [facility] IntraOp Tourniquet Entry 1 Type Pneumatic Setting 350 mmHg Pheumatic Yes Tourniquet Checked Per Protocol Size 34 inches Placement Thigh, right upper Skin Protection - Yes Padded Under Cuff Applied By JOVANNA JOHN, CSA Removed By SWATI RUBI, PAC Times Start Time 05/24/19 12:01:00 Stop Time 05/24/19 13:02:00 Last Modified By: Namita Laird Rn 05/24/19 13:02:28 [facility] IntraOp Tourniquet Audit 05/24/19 13:02:28 Cost Accounting Manager: [id number] Modifier: [id number] <+> 1 Stop Time 05/24/19 12:01:37 Cost Accounting Manager: [id number] Modifier: [id number] <+> 1 Start Time Case Comments <None> Finalized By: Namita Laird Rn Document Signatures Signed By: Namita Laird Rn 05/24/19 13:10 documented in this encounter Plan of Treatment Not on file documented as of this encounter Visit Diagnoses Not on filedocumented in this encounter
--- OUTSIDE RECORDS SUMMARY | 2025-04-07 08:48 | XMS_ITS | Encounter Summary ---
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 Script written, on chart WB Status: WBAT Therapy goals: Hospital ROM Continue Miguelito at home all times when not performing PT/HEP TID Prone Hangs, patient shown how to perform CPM machine 0-110 Goal- Knee flexion 110 degrees LESLIE F/U in clinic 2-3 weeks Discharge Instructions: 1)Elevate the knee and the entire lower extremity for as much as possible for 6 weeks and use ice liberally for 30 minutes 3-4 times a day. 2)Patient may shower on the 3rd day after surgery, but must keep the wound or dressing completely dry until natalie are removed. The patient should not take any soaking baths until 1 month after surgery. 3) Patient may bear as much weight as tolerated on the affected extremity. TUBS (passive exertion) exercises for 30 minutes TID are effective initially after surgery, but after the 1st week, the patient should progress to prone hangs to help with knee straightening postoperatively. 4) Patient will be on blood thinner for 4 to 6 weeks after surgery. You blood thinner may vary pending you past medical history. 5) You may remove the DEBORAH day after surgery and leave the incision uncovered if it is completely dry. Cubero will be removed in 14 days in the office. 6) An DEBORAH wrap can be used to cover the wound to maintain compression and decrease swelling. 7) Call for wound drainage that is present beyond 7 days after surgery. 9) Motion is more important than strength or walking distance during the first 6 weeks after surgery. 10) Gabapentin 300 mg tabs, Oxycodone 5mg, Tramadol 50mg tabs, and for rescue pain Dilaudid 2mg tabs will be used for postoperative pain control and should be weaned as the patient can tolerate. Discharge Medications (11) Active Advair Diskus 250 mcg-50 [...] Vitamin D3 5,000 Int Units, Oral, Daily Oxycodone 5mg 1-2 tabs every 6 hours PRN pain Dilaudid 2mg Q6hrs PRN (extreme pain only, this is not for management of pain but for rescue only) Tramadol 50mg 1 tab Q 6hrs PRN ECASA 81mg BID x 6 weeks Colace 100mg 1 tab daily Gabapentin 300mg 1 tab QHS Mobic 15mg Q Day documented in this encounter Plan of Treatment Not on file documented as of this encounter Visit Diagnoses Not on filedocumented in this encounter
--- OUTSIDE RECORDS SUMMARY | 2025-04-07 08:48 | XMS_ITS | Encounter Summary ---
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 Patient: ANTONI WADDELL V Age: 64 years Sex: Male : 1955 Associated Diagnoses: None Author: Zay Newby, Pharmacist Pharmacy verified patient's allergies and home medication list with the patient and pharmacy records and are as follows: Home Medications (11) Active Advair Diskus 250 mcg-50 mcg inhalation powder 1 Puff, PRN, Inhalation, BID Fish Oil 1,200 mg, Oral, Daily Glucosamine & Chondroitin with MSM 1500 mg/1200 mg, Oral, Daily levothyroxine 50 mcg, Oral, Daily montelukast 10 mg, Oral, Daily Myrbetriq 50 mg, Oral, Daily resveratrol 300 mg, Oral, Daily sertraline 100 mg, Oral, Daily Systane Ultra Preservative Free ophthalmic solution 1 Drop, PRN, Eyes Both, BID triple action joint health 1 Tab, Oral, Daily Vitamin D3 200 IU, Oral, Daily Allergies (1) Active Reaction No Known Allergies None Documented Thanks, Zay Newby RPh Electronically signed by Yakov, [facility] Conversion Retail Agent Cerner at 11/04/2022 3:15 PM CDT documented in this encounter Plan of Treatment Not on file documented as of this encounter Visit Diagnoses Not on filedocumented in this encounter
[2025-04-07 13:52] LABS: Albumin Level 4.6 g/dl (3.5-5.0); Chloride 101 mmol/L (98-107); Potassium 4.5 mmoL/L (3.5-5.1); Sodium 138 mmol/L (136-145)
[2025-04-07 13:54] LABS: Blood Urea Nitrogen 16 mg/dl (9-20); Creatinine,Serum 1.00 mg/dl (0.66-1.25); Estimated Glomerular Filt Rate 74 ml/min (>60); GFR (African American) 89 ML/MIN (>60)
[2025-04-07 13:55] LABS: Alanine Aminotransferase 39 U/L (12-78); Albumin/Globulin Ratio 1.4 (1.1-1.8); Alkaline Phosphatase 77 U/L (38-126); Anion Gap 16.5 mEq/L (5-15); Aspartate Amino Transferase 62 U/L (17-59); Bilirubin,Total 0.8 mg/dl (0.2-1.3); Calcium 9.7 mg/dl (8.4-10.2); Carbon Dioxide 25 mmol/L (22.0-30.0); Cholesterol 203 mg/dl (140-200); Globulin 3.2 g/dL (1.3-3.2); Glucose 99 mg/dl (74-100); HDL Cholesterol 70 mg/dl (40-60); Total Protein,Serum 7.8 g/dl (6.3-8.2); Triglycerides 64 mg/dl (30-150)
== END 2025-04-07 23:59 | disposition home or self-care (01) ==
PROVIDERS: PCP Internal Medicine Adolescent Medicine; Visit Provider Internal Medicine Adolescent Medicine
DX: M19.012 Primary osteoarthritis, left shoulder (principal); S43.492A Other sprain of left shoulder joint, initial encounter; M75.112 Incomplete rotator cuff tear or rupture of left shoulder, not specified as traumatic; E78.49 Other hyperlipidemia
CPT/HCPCS: 36415; 73221; 80053; 80061